=== PATIENT | male | born 1945 | race Caucasian/White ===

== ENCOUNTER 2021-06-14 18:00 | Inpatient (IN) | payer MEDICARE ==
--- NOTE | 2021-06-14 18:37 | ED ---
General Adult HPI - General Chief complaint: Chest Pain Stated complaint: Chest Pain, transfer from [facility] Time Seen by Provider: 06/14/21 18:26 Source: patient, RN/MD, EMS, old records reviewed Mode of arrival: EMS Limitations: no limitations - History of Present Illness Initial comments: Patient was transferred to our ED from the [facility] ED for further evaluation of his chest pain. Per [facility] ED physician, the patient presented there after developing exertional chest pain. Per ED physician, the patient's EKG demonstrated no ST abnormality and the patient's initial troponin was negative, but given the patient's cardiac history of having 5 stents placed in the past, and given the patient's ongoing chest pain, the patient was started on a heparin IV drip, nitroglycerin IV drip and transferred to our ED. Patient reports that his central chest pain began at about 11 AM this morning while doing some yard work. Patient states that his pain has currently improved. Patient states that he took 3 nitroglycerin tabs at home, as well as aspirin, prior to going to the [facility] ED earlier today. Patient denies trauma or injury, fever or chills, headache, focal numbness/weakness/neuro deficit, neck/arm/jaw/back pain, pleuritic pain, cough or cold symptoms, dyspnea, palpitations, dizziness, nausea/vomiting/diaphoresis, abdominal pain, dysuria or urinary symptoms, leg or calf swelling or pain, or any other symptoms or complaints. - Related Data Home Medications Medication Instructions Recorded Confirmed Aspirin EC [Ecotrin Low Dose] 81 mg PO DAILY 06/14/21 06/14/21 Baclofen 10 mg PO Q6H PRN 06/14/21 06/14/21 Cholecalciferol [Vitamin D3 (25 25 mcg PO DAILY 06/14/21 06/14/21 Mcg = 1000 Iu)] Diltiazem HCl [Diltiazem HCl 24Hr 180 mg PO DAILY 06/14/21 06/14/21 ER] Furosemide [Lasix] 40 mg PO DAILY 06/14/21 06/14/21 HYDROcodone/APAP 7.5-325MG [[place] 1 tab PO Q6H PRN 06/14/21 06/14/21 7.5-325] Magnesium 200 mg PO BID 06/14/21 06/14/21 Multivitamins, Thera [Multivitamin 1 tab PO DAILY 06/14/21 06/14/21 (formulary)] Nitroglycerin Sl Tabs [Nitrostat] 0.4 mg SL Q5M PRN 06/14/21 06/14/21 Rosuvastatin Calcium [Crestor] 40 mg PO DAILY 06/14/21 06/14/21 Sotalol [Betapace] 120 mg PO BID 06/14/21 06/14/21 calcitrioL [Calcitriol] 0.25 mcg PO Q7D 06/14/21 06/14/21 carBAMazepine [TEGretol] 200 mg PO BID 06/14/21 06/14/21 hydroCHLOROthiazide [Hydrodiuril] 25 mg PO DAILY PRN 06/14/21 06/14/21 levETIRAcetam [Keppra] 1,500 mg PO BID 06/14/21 06/14/21 Allergies Allergy/AdvReac Type Severity Reaction Status Date / Time cyclobenzaprine Allergy Unknown Verified 06/14/21 19:34 [From Flexeril] Fish Containing Products Allergy Swelling Verified 06/14/21 19:34 [Fish] hydralazine Allergy Unknown Verified 06/14/21 19:34 niacin Allergy Unknown Verified 06/14/21 19:34 shellfish derived [Shellfish] Allergy Swelling Verified 06/14/21 19:34 simvastatin Allergy Unknown Verified 06/14/21 19:34 Review of Systems ROS Statement: Those systems with pertinent positive or pertinent negative responses have been documented in the HPI. ROS Other: All systems not noted in ROS Statement are negative. Past Medical History Past Medical History: Cancer, Hyperlipidemia, Hypertension, Myocardial Infarction ([place]) Additional Past Medical History / Comment(s): kidney ca History of Any Multi-Drug Resistant Organisms: None Reported Past Surgical History: Back Surgery, Cholecystectomy, Coronary Bypass/CABG, Heart Catheterization With Stent, Orthopedic Surgery Additional Past Surgical History / Comment(s): rt kidney removl Past Psychological History: No Psychological Hx Reported Smoking Status: Never smoker Past Alcohol Use History: None Reported Past Drug Use History: None Reported General Exam Limitations: no limitations General appearance: alert, in no apparent distress Head exam: Present: atraumatic, normocephalic Eye exam: Present: normal appearance, EOMI ENT exam: Present: mucous membranes moist Neck exam: Present: other (Trachea is in midline) Respiratory exam: Present: normal lung sounds bilaterally. Absent: respiratory distress, wheezes, rales, rhonchi, stridor, chest wall tenderness Cardiovascular Exam: Present: regular rate, normal rhythm, normal heart sounds, other (Normal radial pulses bilaterally) GI/Abdominal exam: Present: soft. Absent: distended, tenderness, guarding Extremities exam: Present: other (Negative Homans sign bilaterally). Absent: tenderness, pedal edema, calf tenderness Neurological exam: Present: alert, oriented X3. Absent: motor sensory deficit Psychiatric exam: Present: normal affect, normal mood Skin exam: Present: warm, dry, intact, normal color Course Vital Signs 06/14/21 18:15 Temperature 97.6 F Pulse Rate 60 Respiratory 18 Rate Blood Pressure 141/77 O2 Sat by Pulse 99 Oximetry - Reevaluation(s) Reevaluation #1: 06/14/21 18:58 Case, H&P, [facility] test results and treatment, and pending ED workup here were discussed with Dr. Blair. He accepts hospital admission. He requests that I order a d-dimer. He agrees with cardiology consultation. He has no further recommendations at this time. 06/14/21 20:26 Dr. Blair is aware of the patient's elevated d-dimer. He recommends keeping the patient on his heparin IV drip, and he states that he will order a VQ scan on the patient in the morning given the patient's elevated creatinine. He has no further recommendations at this time. 06/14/21 21:07 Patient's troponin has now resulted and is now elevated at 0.086. Patient states that his chest pain has improved. Will continue the patient on heparin I V drip. EKG Findings - EKG Comments: EKG Findings:: Atrial paced rhythm, incomplete right bundle branch block, ventricular rate of 63 bpm, NV interval of 248 ms, QRS duration of 112 ms, QTc interval of 550 ms, no ST elevation, nonspecific ST abnormality Medical Decision Making - Medical Decision Making Patient's outside hospital ([facility]) notes and test results were reviewed myself. Patient's chest x-ray report shows no active cardiac pulmonary disease. Patient's EKG shows no ST or T-wave abnormality. Patient's Covid and influenza studies are negative. Patient's labs are pertinent for a hemoglobin of 10.8, hematocrit of 33.9, potassium of 3.2, BUN of 79, a serum creatinine of 2.9, and a negative troponin (0.021). Patient reportedly has chronic kidney disease. Given the patient's cardiac history and ongoing chest pain, will admit the patient to the hospital for serial cardiac enzymes, cardiac monitoring and cardiology evaluation. Will continue the patient's IV heparin drip. Dr. Blair has accepted hospital admission. - Lab Data Result diagrams: 06/14/21 19:20 Disposition Clinical Impression: Chest pain, Elevated troponin Disposition: ADMITTED IP TO THIS HOSP Condition: Stable Is patient prescribed a controlled substance at d/c from ED?: No Time of Disposition: 19:01
[2021-06-14] MEDS ORDERED: HEPARIN SODIUM 1,000 UN/ML (10ML VL) IV ONE (19:02)
[2021-06-14 19:31] LABS: Basophils # (A) 0.1 k/uL (0-0.2); Basophils % (A) 1 %; Eosinophils # (A) 0.3 k/uL (0-0.7); Eosinophils % (A) 4 %; HCT 33.7 % (39.0-53.0); HGB 11.3 gm/dL (13.0-17.5); Lymphocytes # (A) 1.8 k/uL (1.0-4.8); Lymphocytes % (A) 22 %; MCH 32.7 pg (25.0-35.0); MCHC 33.6 g/dL (31.0-37.0); MCV 97.3 fL (80.0-100.0); Mean Platelet Volume 7.8; Monocytes # (A) 0.5 k/uL (0-1.0); Monocytes % (A) 6 %; Neutrophils # (A) 5.4 k/uL (1.3-7.7); Neutrophils % (A) 64 %; Platelet Count 205 k/uL (150-450); RBC 3.46 m/uL (4.30-5.90); RDW 14.3 % (11.5-15.5); WBC 8.4 k/uL (3.8-10.6)
[2021-06-14] MEDS: HEPARIN SOD,PORK IN 0.45% NACL 25,000 UNIT in 0.45% NACL 1 250ML.BAG IV SCH (19:32)
[2021-06-14] MEDS ORDERED: MAG HYDROX/AL HYDROX/SIMETH 30 ML, HYOSCYAMINE ELIXIR 10 ML, LIDOCAINE VISCOUS 2% 10 ML PO STA ×3 (19:37)
[2021-06-14 19:51] LABS: INR 1.1 (<1.2); Prothrombin Time 11.2 sec (9.0-12.0)
[2021-06-14 19:56] LABS: Partial Thromboplastin Time 70.3 sec (22.0-30.0)
[2021-06-15 09:05] LABS: INR 1.02 (0.90-1.11); Prothrombin Time 11.1 sec (9.9-11.9)
[2021-06-15 09:07] LABS: Basophils # (A) 0.03 X 10*3/uL (0.00-0.10); Basophils % (A) 0.4 %; Eosinophils # (A) 0.26 X 10*3/uL (0.04-0.35); Eosinophils % (A) 3.8 %; HCT 33.2 % (39.6-50.0); HGB 10.4 g/dL (13.0-17.0); Lymphocytes # (A) 1.85 X 10*3/uL (0.90-5.00); Lymphocytes % (A) 27.2 %; MCH 30.9 pg (27.0-32.0); MCHC 31.3 g/dL (32.0-37.0); MCV 98.5 fL (80.0-97.0); Monocytes # (A) 0.72 X 10*3/uL (0.20-1.00); Monocytes % (A) 10.6 %; Neutrophils # (A) 3.92 X 10*3/uL (1.80-7.70); Neutrophils % (A) 57.6 %; Platelet Count 181 X 10*3/uL (140-440); RBC 3.37 X 10*6/uL (4.40-5.60); RDW 13.9 % (11.5-14.5); WBC 6.81 X 10*3/uL (4.50-10.00)
[2021-06-15 10:16] LABS: African American GFR (CKD) 22.5 (60.0-200.0); Albumin 4.3 g/dL (3.80-4.90); Albumin/Globulin Ratio 2.39 (1.60-3.17); Anion Gap 8.2 mmol/L (4.00-12.00); BUN/Creat Ratio 24.67 Ratio (12.00-20.00); Calcium 8.3 mg/dL (8.7-10.3); Carbon Dioxide 29.8 mmol/L (21.6-31.8); Globulin 1.8 g/dL (1.6-3.3); Non-African American GFR(CKD) 19.4 (60.0-200.0); Potassium 3.6 mmol/L (3.5-5.5); Total Bilirubin 0.2 mg/dL (0.3-1.2); Total Protein 6.1 g/dL (6.2-8.2)
--- NOTE | 2021-06-15 10:34 | P.CRDCN ---
History of Present Illness Consult date: 06/15/21 Chief complaint: Chest pain History of present illness: This is a 76-year-old gentleman who sees a solutions consultant out of this area with a past medical history significant for coronary artery disease and prior coronary artery bypass grafting as well as stenting with unknown details, we are in process of getting the previous medical records including the last heart catheterization as well as history of cardiomyopathy and also hypertension and dyslipidemia and status post what it seems to be an AICD. The patient was transferred from [facility] emergency department to the emergency department here for further evaluation of chest discomfort. The patient somewhat is a poor historian. He stated that he presented complaining of chest pressure and epigastric discomfort mainly without any associated symptoms of sweating or shortness of breath or dizziness or lightheadedness or any feeling of heart racing or fluttering or presyncope or syncope. The EKG showed sinus rhythm with significant/ischemic ST and T wave abnormalities. Her troponin came in to be abnormal and consistent with acute coronary syndrome. The patient currently is on heparin and he stated that his pain has improved significantly but he continues to have about 1/10 chest discomfort at this point. Unfortunately his creatinine is abnormal and came in to be about 3 was GFR of 20 only. He does have an underlying chronic kidney disease. We don't have any prior echocardiogram on the patient. We are in process of getting a copy of the last heart catheterization from [facility]. Beside that and meanwhile I'm going to continue hydrating the patient and monitor the kidney function and electrolytes and consider coronary angiogram in the next 24-48 hours if the creatinine is improved and she continues to have symptoms of chest pain or chest discomfort. I will also obtain an echocardiogram was Doppler to establish LV function. We'll continue follow-up with the patient. Past Medical History Past Medical History: Cancer, Hyperlipidemia, Hypertension, Myocardial Infarction ([place]) Additional Past Medical History / Comment(s): kidney ca History of Any Multi-Drug Resistant Organisms: None Reported Past Surgical History: Back Surgery, Cholecystectomy, Coronary Bypass/CABG, Heart Catheterization With Stent, Orthopedic Surgery Additional Past Surgical History / Comment(s): rt kidney removl Past Psychological History: No Psychological Hx Reported Smoking Status: Never smoker Past Alcohol Use History: None Reported Past Drug Use History: None Reported Medications and Allergies Home Medications Medication Instructions Recorded Confirmed Type Aspirin EC [Ecotrin Low Dose] 81 mg PO DAILY 06/14/21 06/14/21 History Baclofen 10 mg PO Q6H PRN 06/14/21 06/14/21 History Cholecalciferol [Vitamin D3 (25 25 mcg PO DAILY 06/14/21 06/14/21 History Mcg = 1000 Iu)] Diltiazem HCl [Diltiazem HCl 24Hr 180 mg PO DAILY 06/14/21 06/14/21 History ER] Furosemide [Lasix] 40 mg PO DAILY 06/14/21 06/14/21 History HYDROcodone/APAP 7.5-325MG [[place] 1 tab PO Q6H PRN 06/14/21 06/14/21 History 7.5-325] Magnesium 200 mg PO BID 06/14/21 06/14/21 History Multivitamins, Thera [Multivitamin 1 tab PO DAILY 06/14/21 06/14/21 History (formulary)] Nitroglycerin Sl Tabs [Nitrostat] 0.4 mg SL Q5M PRN 06/14/21 06/14/21 History Rosuvastatin Calcium [Crestor] 40 mg PO DAILY 06/14/21 06/14/21 History Sotalol [Betapace] 120 mg PO BID 06/14/21 06/14/21 History calcitrioL [Calcitriol] 0.25 mcg PO Q7D 06/14/21 06/14/21 History carBAMazepine [TEGretol] 200 mg PO BID 06/14/21 06/14/21 History hydroCHLOROthiazide [Hydrodiuril] 25 mg PO DAILY PRN 06/14/21 06/14/21 History levETIRAcetam [Keppra] 1,500 mg PO BID 06/14/21 06/14/21 History Allergies Allergy/AdvReac Type Severity Reaction Status Date / Time cyclobenzaprine Allergy Unknown Verified 06/14/21 19:34 [From Flexeril] Fish Containing Products Allergy Swelling Verified 06/14/21 19:34 [Fish] hydralazine Allergy Unknown Verified 06/14/21 19:34 niacin Allergy Unknown Verified 06/14/21 19:34 shellfish derived [Shellfish] Allergy Swelling Verified 06/14/21 19:34 simvastatin Allergy Unknown Verified 06/14/21 19:34 Physical Exam Vitals: Vital Signs Temp Pulse Resp BP Pulse Ox 06/15/21 10:02 97.8 F 60 16 126/55 100 06/15/21 08:03 97.8 F 60 16 126/55 100 06/15/21 04:08 60 16 127/65 99 06/15/21 00:47 98.5 F 62 20 137/55 99 06/14/21 22:20 66 18 109/67 98 06/14/21 18:15 97.6 F 60 18 141/77 99 Intake and Output 06/14/21 06/15/21 06/15/21 22:59 06:59 14:59 Intake Total 5 49.467 Balance 5 49.467 Intake: Intake, IV Titration 5 49.467 Amount Heparin Sod,Pork in 0.45% 5 49.467 NaCl 25,000 unit In 0.45 % NaCl 1 250ml.bag @ 10. 03 UNITS/KG/HR 10 mls/hr IV .Q24H [facility] Rx#: [id number] Other: Weight 99.7 kg - Constitutional General appearance: no acute distress - Respiratory Respiratory: bilateral: CTA - Cardiovascular Rhythm: regular Heart sounds: normal: S1, S2 Abnormal Heart Sounds: systolic murmur Results 06/15/21 05:15 06/15/21 05:15 Cardiac Enzymes 06/14/21 06/14/21 06/15/21 Range/Units 19:18 22:34 01:33 AST (14-35) U/L Troponin I 0.086 H* 3.800 H* 14.600 H* (0.000-0.034) ng/mL 06/15/21 Range/Units 05:15 AST 90 H (14-35) U/L Troponin I (0.000-0.034) ng/mL Coagulation 06/14/21 06/15/21 06/15/21 Range/Units 19:10 01:33 05:15 PT 11.2 11.1 (9.0-12.0) sec APTT 70.3 H 92.9 H (22.0-30.0) sec 06/15/21 Range/Units 09:28 PT (9.0-12.0) sec APTT 30.4 H (22.0-30.0) sec CBC 06/14/21 06/15/21 Range/Units 19:20 05:15 WBC 8.4 6.81 (3.8-10.6) k/uL RBC 3.46 L 3.37 L (4.30-5.90) m/uL Hgb 11.3 L 10.4 L (13.0-17.5) gm/dL Hct 33.7 L 33.2 L (39.0-53.0) % Plt Count 205 181 (150-450) k/uL Comprehensive Metabolic Panel 06/15/21 Range/Units 05:15 Sodium 142 (135-145) mmol/L Potassium 3.6 (3.5-5.5) mmol/L Chloride 104 (96-109) mmol/L Carbon Dioxide 29.8 (21.6-31.8) mmol/L BUN 74.0 H (9.0-27.0) mg/dL Creatinine 3.0 H (0.6-1.5) mg/dL Glucose 75 (70-110) mg/dL Calcium 8.3 L (8.7-10.3) mg/dL AST 90 H (14-35) U/L ALT 29 (10-49) U/L Alkaline Phosphatase 91 (41-126) U/L Total Protein 6.1 L (6.2-8.2) g/dL Albumin 4.30 (3.80-4.90) g/dL Current Medications Generic Name Dose Route Start Last Admin Trade Name Freq PRN Reason Stop Dose Admin Heparin Sodium (Porcine) 0 unit 06/14/21 19:02 Heparin Sodium 1,000 Un/Ml (10ml Vl) IV PER PROTOCOL PRN Low PTT Protocol Heparin Sodium/Sodium Chloride 250 mls @ 10 mls/hr 06/14/21 19:15 06/15/21 03:29 25,000 unit/ Sodium Chloride IV 5.02 units/kg/hr .Q24H [facility]ON[facility] 5.005 mls/hr Titration Protocol 10.03 UNITS/KG/HR Intake and Output 06/14/21 06/15/21 06/15/21 22:59 06:59 14:59 Intake Total 5 49.467 Balance 5 49.467 Intake: Intake, IV Titration 5 49.467 Amount Heparin Sod,Pork in 0.45% 5 49.467 NaCl 25,000 unit In 0.45 % NaCl 1 250ml.bag @ 10. 03 UNITS/KG/HR 10 mls/hr IV .Q24H [facility] Rx#: [id number] Other: Weight 99.7 kg 06/15/21 05:15 06/15/21 05:15 Assessment and Plan Assessment: Assessment #1 acute coronary syndrome #2 acute on chronic kidney disease #3 known severe CAD with prior revascularization surgically and percutaneous the with unknown details at this point #4 history of cardiomyopathy #5 multiple comorbid conditions Plan #1 consider a conservative approach at this point in the absence of chest pain and in view of the acute renal failure #2 continue heparin IV for a total of 48 hours #3 consider dual antiplatelet therapy with aspirin as well as clopidogrel #4 high intensity statin #5 obtain an echocardiogram was Doppler #6 obtain a copy of the last heart catheterization We'll continue following up with the patient
[2021-06-15] MEDS: HEPARIN SODIUM 1,000 UN/ML (10ML VL) IV PRN ×2 (11:21→18:15)
[2021-06-15] MEDS ORDERED: BACLOFEN 10 MG TAB PO PRN (11:33)
[2021-06-15] MEDS ORDERED: HYDROcodone/APAP 7.5-325MG 1 EACH TAB PO PRN (11:33)
[2021-06-15] MEDS ORDERED: hydroCHLOROthiazide 25 MG TAB PO PRN (11:33)
--- NOTE | 2021-06-15 14:27 | NM ---
EXAMINATION TYPE: NM pul vent and perfuse DATE OF EXAM: 06/15/2021 COMPARISON: Chest x-ray 06/14/2021 HISTORY: Elevated d-dimer, chest pain, difficulty breathing and cough TECHNIQUE: Utilizing inhalation of 68.1 mCi Tc 99m DTPA aerosol and intravenous injection of 5.2 mCi of Tc 99m MAA, ventilation and perfusion images are acquired post injection in multiple projections. FINDINGS: Near normal radiotracer distribution is noted in the lungs. There is no evidence of mismatched defect s. IMPRESSION: Low probability for pulmonary embolus
[2021-06-15] MEDS: CHOLECALCIFEROL 25 MCG (1000 IU) TABLET PO SCH (16:21)
[2021-06-15] MEDS: carBAMazepine 200 MG TAB PO SCH ×2 (16:21→20:02)
[2021-06-15] MEDS: ASPIRIN 81 MG PO SCH (16:21)
[2021-06-15] MEDS: DILTIAZEM CD 180 MG CAP.ER.24H PO SCH (16:21)
[2021-06-15] MEDS: FUROSEMIDE 40 MG TAB PO SCH (16:22)
[2021-06-15] MEDS: MULTIVITAMINS, THERA 1 EACH TAB PO SCH (16:40)
[2021-06-15] MEDS: MAGNESIUM OXIDE 400 MG TAB PO SCH ×2 (16:43→20:03)
--- NOTE | 2021-06-15 19:41 | P.HPIM ---
History of Present Illness H&P Date: 06/15/21 Kelton Medley, is a 76-year-old male who presented to [facility] emergency room with a chief complaint of chest pain and shortness of breath, he was evaluated at [facility], his EKG and cardiac enzymes were within normal limits, however due to his extensive history of coronary artery disease including history of angioplasty and 5 stent placement in the past, he was started on IV heparin and was transferred to [facility] for further evaluation and treatment. Patient stated that he was working in his yard when he started having pain in the midsternal area he was also having shortness of breath he to 3 sublingual nitroglycerin at home and aspirin without complete resolution of his chest pain and he decided to go to emergency room. He was evaluated at [facility] his vital examination on presentation revealed a temperature of 97.6 pulse 60 respiration 18 blood pressure 141/77 pulse ox 99% on room air Laboratory data on presentation revealed a white blood count of 8.4 hemoglobin 11.3 platelet count 205 INR 1.1 d-dimer 8.61 First troponin level was 0.086 however subsequence troponin level was up to 3.80 BUN was elevated at 74 and creatinine elevated at 3.0 Patient was admitted to telemetry floor cardiology consultation was requested he was kept on IV heparin Patient has a known history of coronary artery disease with previous history of stent placement 5 in the past he also has a known history of cardiomyopathy and history of chronic kidney disease Past Medical History Past Medical History: Cancer, Hyperlipidemia, Hypertension, Myocardial Infarction ([place]) Additional Past Medical History / Comment(s): kidney ca History of Any Multi-Drug Resistant Organisms: None Reported Past Surgical History: Back Surgery, Cholecystectomy, Coronary Bypass/CABG, Heart Catheterization With Stent, Orthopedic Surgery Additional Past Surgical History / Comment(s): rt kidney removl Past Psychological History: No Psychological Hx Reported Smoking Status: Never smoker Past Alcohol Use History: None Reported Past Drug Use History: None Reported Medications and Allergies Home Medications Medication Instructions Recorded Confirmed Type Aspirin EC [Ecotrin Low Dose] 81 mg PO DAILY 06/14/21 06/14/21 History Baclofen 10 mg PO Q6H PRN 06/14/21 06/14/21 History Cholecalciferol [Vitamin D3 (25 25 mcg PO DAILY 06/14/21 06/14/21 History Mcg = 1000 Iu)] Diltiazem HCl [Diltiazem HCl 24Hr 180 mg PO DAILY 06/14/21 06/14/21 History ER] Furosemide [Lasix] 40 mg PO DAILY 06/14/21 06/14/21 History HYDROcodone/APAP 7.5-325MG [[place] 1 tab PO Q6H PRN 06/14/21 06/14/21 History 7.5-325] Magnesium 200 mg PO BID 06/14/21 06/14/21 History Multivitamins, Thera [Multivitamin 1 tab PO DAILY 06/14/21 06/14/21 History (formulary)] Nitroglycerin Sl Tabs [Nitrostat] 0.4 mg SL Q5M PRN 06/14/21 06/14/21 History Rosuvastatin Calcium [Crestor] 40 mg PO DAILY 06/14/21 06/14/21 History Sotalol [Betapace] 120 mg PO BID 06/14/21 06/14/21 History calcitrioL [Calcitriol] 0.25 mcg PO Q7D 06/14/21 06/14/21 History carBAMazepine [TEGretol] 200 mg PO BID 06/14/21 06/14/21 History hydroCHLOROthiazide [Hydrodiuril] 25 mg PO DAILY PRN 06/14/21 06/14/21 History levETIRAcetam [Keppra] 1,500 mg PO BID 06/14/21 06/14/21 History Allergies Allergy/AdvReac Type Severity Reaction Status Date / Time cyclobenzaprine Allergy Unknown Verified 06/14/21 19:34 [From Flexeril] Fish Containing Products Allergy Swelling Verified 06/14/21 19:34 [Fish] hydralazine Allergy Unknown Verified 06/14/21 19:34 niacin Allergy Unknown Verified 06/14/21 19:34 shellfish derived [Shellfish] Allergy Swelling Verified 06/14/21 19:34 simvastatin Allergy Unknown Verified 06/14/21 19:34 Physical Exam Vitals: Vital Signs Temp Pulse Resp BP Pulse Ox 06/15/21 10:02 97.8 F 60 16 126/55 100 06/15/21 08:03 97.8 F 60 16 126/55 100 06/15/21 04:08 60 16 127/65 99 06/15/21 00:47 98.5 F 62 20 137/55 99 06/14/21 22:20 66 18 109/67 98 06/14/21 18:15 97.6 F 60 18 141/77 99 Intake and Output 06/14/21 06/15/21 06/15/21 22:59 06:59 14:59 Intake Total 5 49.467 Balance 5 49.467 Intake: Intake, IV Titration 5 49.467 Amount Heparin Sod,Pork in 0.45% 5 49.467 NaCl 25,000 unit In 0.45 % NaCl 1 250ml.bag @ 10. 03 UNITS/KG/HR 10 mls/hr IV .Q24H [facility] Rx#: [id number] Other: Weight 99.7 kg In general patient is alert and oriented x3 in no distress HEENT head normocephalic and atraumatic Neck is supple no JVD no goiter no lymphadenopathy no carotid bruit Chest examination is clear to auscultation no crackles no wheezing Cardiac exam reveals regular heart sounds S1 and S2 no gallops no murmurs Abdomen is soft nontender no organomegaly with normal bowel sounds Extremity exam reveals no edema no cyanosis or clubbing Neurological examination reveals no gross focal deficits Results CBC & Chem 7: 06/15/21 05:15 06/15/21 05:15 Labs: Abnormal Lab Results - Last 24 Hours (Table) 06/14/21 06/14/21 06/14/21 Range/Units 19:10 19:18 19:20 RBC 3.46 L (4.30-5.90) m/uL Hgb 11.3 L (13.0-17.5) gm/dL Hct 33.7 L (39.0-53.0) % MCV (80.0-97.0) fL MCHC (32.0-37.0) g/dL APTT 70.3 H (22.0-30.0) sec D-Dimer 8.61 H (<0.60) mg/L FEU Troponin I 0.086 H* (0.000-0.034) ng/mL 06/14/21 06/15/21 06/15/21 Range/Units 22:34 01:33 01:33 RBC (4.30-5.90) m/uL Hgb (13.0-17.5) gm/dL Hct (39.0-53.0) % MCV (80.0-97.0) fL MCHC (32.0-37.0) g/dL APTT 92.9 H (22.0-30.0) sec D-Dimer (<0.60) mg/L FEU Troponin I 3.800 H* 14.600 H* (0.000-0.034) ng/mL 06/15/21 06/15/21 Range/Units 05:15 09:28 RBC 3.37 L (4.30-5.90) m/uL Hgb 10.4 L (13.0-17.5) gm/dL Hct 33.2 L (39.0-53.0) % MCV 98.5 H (80.0-97.0) fL MCHC 31.3 L (32.0-37.0) g/dL APTT 30.4 H (22.0-30.0) sec D-Dimer (<0.60) mg/L FEU Troponin I (0.000-0.034) ng/mL Assessment and Plan Plan: 1. Acute non-ST elevation myocardial infarction 2. Underlying known history of severe coronary artery disease was previous history of coronary artery bypass graft surgery and history of multiple stent placements in the past 3. Underlying history of chronic kidney disease, will consult nephrology, continue IV hydration at this time 4. Underlying history of seizure disorder maintained on Tegretol and Keppra continue 5. Underlying history of hypertension 6. Underlying history of hyperlipidemia 7. Underlying history of cardiomyopathy 8. Underlying history of cardiac Arrhythmia patient and able to give details he is maintained on sotalol and has a history of pacemaker/defibrillator implant At this time medication were reviewed and reordered Continue IV heparin and IV hydration Cardiology are following Will consult nephrology Patient had chronic kidney disease and previous history of kidney cancer and right nephrectomy Will follow closely
[2021-06-15] MEDS: ATORVASTATIN 40 MG TAB PO SCH (20:02)
[2021-06-15] MEDS: SOTALOL 120 MG TAB PO SCH (20:02)
[2021-06-15] MEDS: HEPARIN SOD,PORK IN 0.45% NACL 25,000 UNIT in 0.45% NACL 1 250ML.BAG IV SCH (20:03)
[2021-06-15] MEDS ORDERED: SOTALOL 120 MG TAB PO SCH (21:00)
--- NOTE | 2021-06-15 22:09 | US ---
EXAMINATION TYPE: US venous doppler duplex LE BI DATE OF EXAM: 06/15/2021 9:06 PM COMPARISON: NONE CLINICAL HISTORY: elevated d-dimer. SIDE PERFORMED: Bilateral TECHNIQUE: The lower extremity deep venous system is examined utilizing real time linear array sonog shannan with graded compression, doppler sonography and color-flow sonography. VESSELS IMAGED: Common Femoral Vein Deep Femoral Vein Greater Saphenous Vein * Femoral Vein Popliteal Vein Small Saphenous Vein * Proximal Calf Veins (* superficial vessels) Right Leg: Negative for DVT Left Leg: Negative for DVT IMPRESSION: No evidence of bilateral lower extremity DVT.
[2021-06-15 23:21] LABS: Appearance,Urine Clear (Clear); Bilirubin,Urine Negative (Negative); Blood,Urine Negative (Negative); Color,Urine Light Yellow; Glucose,Urine (UA) Negative (Negative); Ketones,Urine Negative (Negative); Leukocyte Esterase,Urine Negative (Negative); Mucus,Urine Rare /hpf; Nitrite,Urine Negative (Negative); PH, Urine 5.5 (5.0-8.0); Protein,Urine 1+ (Negative); RBC,Urine 1 /hpf (0-5); Specific Gravity,Urine 1.014 (1.001-1.035); Urobilinogen,Urine <2.0 mg/dL (<2.0); WBC,Urine <1 /hpf (0-5)
[2021-06-16 08:28] LABS: Basophils % (A) 0 %; Eosinophils # (A) 0.2 k/uL (0-0.7); Eosinophils % (A) 3 %; HCT 34.5 % (39.0-53.0); HGB 10.9 gm/dL (13.0-17.5); Lymphocytes # (A) 1.9 k/uL (1.0-4.8); Lymphocytes % (A) 22 %; MCH 32.1 pg (25.0-35.0); MCHC 31.7 g/dL (31.0-37.0); MCV 101.2 fL (80.0-100.0); Macrocytosis Slight; Mean Platelet Volume 7.7; Monocytes # (A) 0.5 k/uL (0-1.0); Monocytes % (A) 6 %; Neutrophils # (A) 5.6 k/uL (1.3-7.7); Neutrophils % (A) 66 %; Platelet Count 188 k/uL (150-450); RBC 3.41 m/uL (4.30-5.90); RDW 13.8 % (11.5-15.5); WBC 8.5 k/uL (3.8-10.6)
--- NOTE | 2021-06-16 08:32 | P.PN ---
Subjective Progress Note Date: 06/16/21 Principal diagnosis: Acute coronary syndrome The patient is a pleasant 76-year-old gentleman with coronary artery disease and prior revascularization as well as multiple comorbid conditions including hypertension and dyslipidemia was admitted to the hospital with chest discomfort and ruled in for acute coronary syndrome. Also the d-dimer came in to be elevated. Subsequently the patient underwent a VQ scan and that came in to be unremarkable. The creatinine was elevated. The patient was seen this morning. He is chest pain-free. Unfortunately without have the blood work back for today and I ordered kidney function urgent. Also the echocardiogram still pending. He denies any chest pain or chest discomfort and he stated that he is feeling much better compared to yesterday. He continues to be on dual antiplatelet therapy along with a statin along with beta mariella. He is also on heparin IV. Objective - Vital Signs Vital signs: Vital Signs Temp 97.6 F 06/16/21 04:00 Pulse 65 06/16/21 04:00 Resp 16 06/16/21 04:00 BP 153/79 06/16/21 04:00 Pulse Ox 95 06/16/21 04:00 Intake & Output 06/15/21 06/16/21 06/16/21 18:59 06:59 18:59 Intake Total 214.112 849.597 200 Output Total 700 Balance 214.112 149.597 200 Weight 94.5 kg 94 kg Intake: Intake, IV Titration 94.112 69.597 Amount Heparin Sod,Pork in 0.45% 94.112 69.597 NaCl 25,000 unit In 0.45 % NaCl 1 250ml.bag @ 10. 03 UNITS/KG/HR 10 mls/hr IV .Q24H [facility] Rx#: [id number] Oral 120 780 200 Output: Urine 700 Other: Voiding Method Toilet Toilet Urinal Urinal # Voids 2 - Constitutional General appearance: Present: no acute distress - Respiratory Respiratory: bilateral: CTA - Cardiovascular Rhythm: regular Heart sounds: normal: S1, S2 Abnormal Heart Sounds: Present: systolic murmur - Labs CBC & Chem 7: 06/16/21 07:49 06/15/21 05:15 Labs: Abnormal Lab Results - Last 24 Hours (Table) 06/15/21 06/15/21 06/15/21 Range/Units 05:15 05:15 09:28 RBC 3.37 L (4.40-5.60) X 10*6/uL Hgb 10.4 L (13.0-17.0) g/dL Hct 33.2 L (39.6-50.0) % MCV 98.5 H (80.0-97.0) fL MCHC 31.3 L (32.0-37.0) g/dL APTT 30.4 H (22.0-30.0) sec BUN 74.0 H (9.0-27.0) mg/dL Creatinine 3.0 H (0.6-1.5) mg/dL Est GFR (CKD-EPI)AfAm 22.5 L (60.0-200.0) Est GFR (CKD-EPI)NonAf 19.4 L (60.0-200.0) BUN/Creatinine Ratio 24.67 H (12.00-20.00) Ratio Calcium 8.3 L (8.7-10.3) mg/dL Total Bilirubin 0.2 L (0.3-1.2) mg/dL AST 90 H (14-35) U/L Total Protein 6.1 L (6.2-8.2) g/dL Urine Protein (Negative) Urine Mucus (None) /hpf 06/15/21 06/15/21 06/16/21 Range/Units 17:34 21:10 00:25 RBC (4.40-5.60) X 10*6/uL Hgb (13.0-17.0) g/dL Hct (39.6-50.0) % MCV (80.0-97.0) fL MCHC (32.0-37.0) g/dL APTT 37.5 H 67.4 H (22.0-30.0) sec BUN (9.0-27.0) mg/dL Creatinine (0.6-1.5) mg/dL Est GFR (CKD-EPI)AfAm (60.0-200.0) Est GFR (CKD-EPI)NonAf (60.0-200.0) BUN/Creatinine Ratio (12.00-20.00) Ratio Calcium (8.7-10.3) mg/dL Total Bilirubin (0.3-1.2) mg/dL AST (14-35) U/L Total Protein (6.2-8.2) g/dL Urine Protein 1+ H (Negative) Urine Mucus Rare H (None) /hpf 06/16/21 Range/Units 07:49 RBC 3.41 L (4.40-5.60) X 10*6/uL Hgb 10.9 L (13.0-17.0) g/dL Hct 34.5 L (39.6-50.0) % MCV 101.2 H (80.0-97.0) fL MCHC (32.0-37.0) g/dL APTT (22.0-30.0) sec BUN (9.0-27.0) mg/dL Creatinine (0.6-1.5) mg/dL Est GFR (CKD-EPI)AfAm (60.0-200.0) Est GFR (CKD-EPI)NonAf (60.0-200.0) BUN/Creatinine Ratio (12.00-20.00) Ratio Calcium (8.7-10.3) mg/dL Total Bilirubin (0.3-1.2) mg/dL AST (14-35) U/L Total Protein (6.2-8.2) g/dL Urine Protein (Negative) Urine Mucus (None) /hpf Assessment and Plan Assessment: Assessment #1 acute coronary syndrome #2 acute on chronic kidney disease #3 known severe CAD with prior revascularization surgically and percutaneous the with unknown details at this point #4 history of cardiomyopathy #5 multiple comorbid conditions Plan #1 continue IV heparin for additional 24 hours #2 weight for the result of the blood work today #3 follow-up on the echocardiogram #4 PE was ruled out with low probability VQ scan #5 further recommendation to follow
[2021-06-16] MEDS: CLOPIDOGREL 75 MG TAB PO SCH (08:41)
[2021-06-16] MEDS: DILTIAZEM CD 180 MG CAP.ER.24H PO SCH (08:41)
[2021-06-16] MEDS: carBAMazepine 200 MG TAB PO SCH ×2 (08:41→20:40)
[2021-06-16] MEDS: MAGNESIUM OXIDE 400 MG TAB PO SCH ×2 (08:41→20:40)
[2021-06-16] MEDS: FUROSEMIDE 40 MG TAB PO SCH (08:41)
[2021-06-16] MEDS: CHOLECALCIFEROL 25 MCG (1000 IU) TABLET PO SCH (08:41)
[2021-06-16] MEDS: MULTIVITAMINS, THERA 1 EACH TAB PO SCH (08:41)
[2021-06-16] MEDS: SOTALOL 120 MG TAB PO SCH ×2 (08:42→22:35)
[2021-06-16] MEDS: ASPIRIN 81 MG PO SCH (08:42)
[2021-06-16 08:46] LABS: Albumin 3.9 g/dL (3.5-5.0); Calcium 8.7 mg/dL (8.4-10.2); Potassium 3.7 mmol/L (3.5-5.1); Total Bilirubin 0.4 mg/dL (0.2-1.3); Total Protein 6.5 g/dL (6.3-8.2)
[2021-06-16] MEDS ORDERED: ASPIRIN 81 MG PO SCH (09:00)
[2021-06-16] MEDS ORDERED: ATORVASTATIN 80 MG TAB PO SCH (09:00)
--- NOTE | 2021-06-16 10:33 | ECHOF ---
Referral Reason: MEASUREMENTS -------- HEIGHT: 170.2 cm WEIGHT: 99.3 kg BP: IVSd: 2.0 cm (0.6 - 1.1) LVIDd: 3.7 cm (3.9 - 5.3) LVPWd: 2.1 cm (0.6 - 1.1) IVSs: 2.7 cm LVIDs: 2.1 cm LVPWs: 2.6 cm Ao Diam: 3.3 cm (2.0 - 3.7) AV Cusp: 2.0 cm (1.5 - 2.6) LA Diam: 2.3 cm (2.7 - 3.8) MV EXCURSION: 13.883 mm (> 18.000) MV EF SLOPE: 58 mm/s (70 - 150) EPSS: 0.3 cm MV E Олег: 0.76 m/s MV DecT: 260 ms MV A Олег: 0.82 m/s MV E/A Ratio: 0.93 AV maxP.59 mmHg AV meanP.95 mmHg RAP: 5.00 mmHg RVSP: 12.60 mmHg FINDINGS -------- Sinus rhythm. This was a technically difficult study with suboptimal views. The left ventricular size is normal. There is severe concentric left ventricular hypertrophy. Ove rall left ventricular systolic function is normal with, an EF between 55 - 60 %. The right ventricle is normal in size. The left atrial size is normal. The right atrial size is normal. Lumason used The aortic valve was not well visualized. The mitral valve is normal. There is trace mitral regurgitation. The tricuspid valve appears structurally normal. Trace tricuspid regurgitation present. Right diamond tricular systolic pressure is normal at < 35 mmHg. The pulmonic valve was not well visualized. The aortic root size is normal. IVC Not well visulized. There is no pericardial effusion. CONCLUSIONS -------- 1. This was a technically difficult study with suboptimal views. 2. There is severe concentric left ventricular hypertrophy. 3. Overall left ventricular systolic function is normal with, an EF between 55 - 60 %. 4. There is trace mitral regurgitation. 5. Trace tricuspid regurgitation present. 6. There is no pericardial effusion. DIGITAL MEDIA STRATEGIST: Blank Mix RDCS
[2021-06-16] MEDS: ALPRAZolam 0.25 MG TAB PO PRN ×2 (11:58→22:35)
--- NOTE | 2021-06-16 13:31 | CONS ---
CONSULTATION REASON FOR CONSULT: Renal failure. HISTORY OF PRESENT ILLNESS: Patient is a 76-year-old male with a history of chronic kidney disease, NKF stage 3B to 4, with recent worsening of renal function as outpatient with serum creatinine going up to 2.9 and 2.8 mg/dL in February of 2021. Etiology is solitary kidney and nephrosclerosis. H/o R nephrectomy for renal cell cancer. Patient was admitted to the hospital with complaints of chest pain on exertion. He was trying to cut down a tree. The patient does have underlying coronary artery disease with previous coronary interventions. He did rule in for acute MT and was initially being taken for cardiac catheterization, but this was held when his serum creatinine was noted to be 3.0 mg/dL yesterday. Overall, patient states that he is currently [id number]. He has been voiding and his serum creatinine is noted to be lower, at 2.5 mg/dL today. Patient's blood pressure has not been low; in fact, on the higher side. The patient denies use of any nonsteroidal anti-inflammatory agents at home. He is maintained on loop diuretics. I do not see GORDON inhibitors or angiotensin receptor blockers on his home med list. PAST MEDICAL HISTORY: Significant for CKD stage 3B, with recent worsening of renal function as outpatient, history of coronary artery disease, hypertension, MT, hyperlipidemia, history of nephrectomy for renal cell cancer on the right side. PAST SURGICAL HISTORY: Right nephrectomy, coronary artery bypass surgery, cardiac catheterization, coronary stent placement, cholecystectomy. SOCIAL HISTORY: Negative for smoking, drug abuse or alcohol abuse. MEDICATIONS: Home medications include aspirin, baclofen, vitamin D, diltiazem, Lasix, [place], magnesium, multivitamins, Crestor, sotalol, calcitriol, HydroDIURIL, Keppra, Tegretol. ALLERGIES: ALLERGIES include FLEXERIL, FISH, HYDRALAZINE, NIACIN, SHELLFISH, SIMVASTATIN. REVIEW OF SYSTEMS: As per HPI. Other systems negative. PHYSICAL EXAMINATION: Patient is comfortable, awake, alert, oriented x3, not in any acute distress. Blood pressure 163/87, heart rate 59 per minute. He is afebrile. EXAMINATION OF THE HEART: S1 and S2. EXAMINATION OF LUNGS: Bilateral breath sounds are heard. ABDOMEN: Soft, nontender. LOWER EXTREMITIES: Examination of lower extremities shows trace edema bilaterally. RAIL MAINTENANCE WORKER EXAM: Grossly intact. LABS: Sodium 142, potassium 3.6, chloride 104, CO2 is 29.8, BUN 74, creatinine 3.0. Today serum creatinine is down to 2.59 with potassium 3.7, hemoglobin 10.9 g/dL. UA is completely benign. ASSESSMENT: 1. Acute kidney injury with recent worsening of renal function as outpatient. Rule out obstructive uropathy. Check ultrasound of the kidneys. Check bladder scan. Patient's serum creatinine is currently improved to 2.5 from 3.0 on admission. He is not on IV fluids. I will continue with the current dose of Lasix. UA is quite benign. 2. Chronic kidney disease NKF stage 3, with previous creatinine around 1.7 to 1.8, most recently increased to about 2.8 mg/dL in February of 2021. Pt has solitary kidney. No nephrotoxic agents on board. Check ultrasound and check bladder scan. Rule out urine retention. UA is benign with 1+ protein; no blood or cells noted at this time. 3. Acute [id number] myocardial infarction, being followed by Cardiology with plans for medical treatment. Cardiac catheterization on hold currently, given his advanced renal failure. Hopefully, as renal function continues to improve, we can proceed with cardiac catheterization in the next day or two. 4. History of cardiomyopathy. Echocardiogram done on 06/15/2021 shows ejection fraction 55% to 60% with no other major abnormalities detected except for severe concentric LVH. 5. Chronic kidney disease mineral bone disorder, maintained on calcitriol. 6. History of right nephrectomy for renal call cancer. PLAN: Check ultrasound of the kidneys. Continue with current dose of Lasix. Check bladder scan post-void. Continue with the Rocaltrol. The patient is also on hydrochlorothiazide along with the Lasix, which we can continue for now, as his blood pressure is on the higher side. Repeat labs in a.m. Agree with holding cardiac cath for another 1 to 2 days if there is no acute emergency. Thank you for this consultation. Will continue to follow the patient with you during his hospitalization. MMODL / IJN: [id number] / TAVO
--- NOTE | 2021-06-16 13:35 | US ---
EXAMINATION TYPE: US kidneys/renal and bladder DATE OF EXAM: 06/16/2021 COMPARISON: NONE CLINICAL HISTORY: RF. RF per order. Hx renal cancer, right kidney removed. EXAM MEASUREMENTS: Right Kidney: Removed. Left Kidney: 11.5 x 5.7 x 5.7 cm Left Kidney: Appears heterogeneous. Complex area seen: 2.3 x 2.2 x 2.5 cm. Bladder: Appears anechoic. Bilateral Jets seen: Left jet seen. Hx right kidney removed. IMPRESSION: Within the left kidney there is a hypoechoic exophytic nodule measuring 2.3 x 2.5 cm which does not m eet the arteriovenous simple cyst. Recommend MRI.
--- NOTE | 2021-06-16 19:53 | P.PN ---
Subjective Progress Note Date: 06/16/21 Kelton Medley, is a 76-year-old male who presented to [facility] emergency room with a chief complaint of chest pain and shortness of breath, he was evaluated at [facility], his EKG and cardiac enzymes were within normal limits, however due to his extensive history of coronary artery disease including history of angioplasty and 5 stent placement in the past, he was started on IV heparin and was transferred to [facility] for further evaluation and treatment. Patient stated that he was working in his yard when he started having pain in the midsternal area he was also having shortness of breath he to 3 sublingual nitroglycerin at home and aspirin without complete resolution of his chest pain and he decided to go to emergency room. He was evaluated at [facility] his vital examination on presentation revealed a temperature of 97.6 pulse 60 respiration 18 blood pressure 141/77 pulse ox 99% on room air Laboratory data on presentation revealed a white blood count of 8.4 hemoglobin 11.3 platelet count 205 INR 1.1 d-dimer 8.61 First troponin level was 0.086 however subsequence troponin level was up to 3.80 BUN was elevated at 74 and creatinine elevated at 3.0 Patient was admitted to telemetry floor cardiology consultation was requested he was kept on IV heparin Patient has a known history of coronary artery disease with previous history of stent placement 5 in the past he also has a known history of cardiomyopathy and history of chronic kidney disease On 06/16/2021 patient was seen and examined on the telemetry floor he is alert and oriented 3 in no apparent distress at this time he denies any symptoms there is no fever or chills no headache or dizziness no chest pain no shortness of breath no cough no nausea or vomiting no abdominal pain no diarrhea and no urinary symptoms and is able to walk in his room without any difficulty, kidney function slightly improved with a BUN of 61 and a creatinine of 2.59 Kidney ultrasound revealing a hypoechoic exophytic nodule in the left kidney measuring 2.32.5 cm with a recommendation to proceed with MRI Objective - Vital Signs Vital signs: Vital Signs Temp 97.6 F 06/16/21 04:00 Pulse 65 06/16/21 04:00 Resp 16 06/16/21 04:00 BP 153/79 06/16/21 04:00 Pulse Ox 95 06/16/21 04:00 Intake & Output 06/15/21 06/16/21 06/16/21 18:59 06:59 18:59 Intake Total 214.112 849.597 200 Output Total 700 Balance 214.112 149.597 200 Weight 94.5 kg 94 kg Intake: Intake, IV Titration 94.112 69.597 Amount Heparin Sod,Pork in 0.45% 94.112 69.597 NaCl 25,000 unit In 0.45 % NaCl 1 250ml.bag @ 10. 03 UNITS/KG/HR 10 mls/hr IV .Q24H [facility] Rx#: [id number] Oral 120 780 200 Output: Urine 700 Other: Voiding Method Toilet Toilet Urinal Urinal # Voids 2 - Exam In general patient is alert and oriented x3 in no distress HEENT head normocephalic and atraumatic Neck is supple no JVD no goiter no lymphadenopathy no carotid bruit Chest examination is clear to auscultation no crackles no wheezing Cardiac exam reveals regular heart sounds S1 and S2 no gallops no murmurs Abdomen is soft nontender no organomegaly with normal bowel sounds Extremity exam reveals no edema no cyanosis or clubbing Neurological examination reveals no gross focal deficits - Labs CBC & Chem 7: 06/16/21 07:49 06/16/21 08:16 Labs: Abnormal Lab Results - Last 24 Hours (Table) 06/15/21 06/15/21 06/15/21 Range/Units 05:15 09:28 17:34 RBC (4.30-5.90) m/uL Hgb (13.0-17.5) gm/dL Hct (39.0-53.0) % MCV (80.0-100.0) fL APTT 30.4 H 37.5 H (22.0-30.0) sec BUN 74.0 H (9.0-27.0) mg/dL Creatinine 3.0 H (0.6-1.5) mg/dL Est GFR (CKD-EPI)AfAm 22.5 L (60.0-200.0) Est GFR (CKD-EPI)NonAf 19.4 L (60.0-200.0) BUN/Creatinine Ratio 24.67 H (12.00-20.00) Ratio Glucose (74-99) mg/dL Calcium 8.3 L (8.7-10.3) mg/dL Total Bilirubin 0.2 L (0.3-1.2) mg/dL AST 90 H (14-35) U/L Total Protein 6.1 L (6.2-8.2) g/dL Urine Protein (Negative) Urine Mucus (None) /hpf 06/15/21 06/16/21 06/16/21 Range/Units 21:10 00:25 07:49 RBC 3.41 L (4.30-5.90) m/uL Hgb 10.9 L (13.0-17.5) gm/dL Hct 34.5 L (39.0-53.0) % MCV 101.2 H (80.0-100.0) fL APTT 67.4 H (22.0-30.0) sec BUN (9.0-27.0) mg/dL Creatinine (0.6-1.5) mg/dL Est GFR (CKD-EPI)AfAm (60.0-200.0) Est GFR (CKD-EPI)NonAf (60.0-200.0) BUN/Creatinine Ratio (12.00-20.00) Ratio Glucose (74-99) mg/dL Calcium (8.7-10.3) mg/dL Total Bilirubin (0.3-1.2) mg/dL AST (14-35) U/L Total Protein (6.2-8.2) g/dL Urine Protein 1+ H (Negative) Urine Mucus Rare H (None) /hpf 06/16/21 06/16/21 Range/Units 07:49 08:16 RBC (4.30-5.90) m/uL Hgb (13.0-17.5) gm/dL Hct (39.0-53.0) % MCV (80.0-100.0) fL APTT 48.3 H (22.0-30.0) sec BUN 61 H (9.0-27.0) mg/dL Creatinine 2.59 H (0.6-1.5) mg/dL Est GFR (CKD-EPI)AfAm (60.0-200.0) Est GFR (CKD-EPI)NonAf (60.0-200.0) BUN/Creatinine Ratio (12.00-20.00) Ratio Glucose 140 H (74-99) mg/dL Calcium (8.7-10.3) mg/dL Total Bilirubin (0.3-1.2) mg/dL AST 118 H (14-35) U/L Total Protein (6.2-8.2) g/dL Urine Protein (Negative) Urine Mucus (None) /hpf Assessment and Plan Plan: 1. Acute non-ST elevation myocardial infarction 2. Underlying known history of severe coronary artery disease was previous history of coronary artery bypass graft surgery and history of multiple stent placements in the past 3. Underlying history of chronic kidney disease, will consult nephrology, continue IV hydration at this time 4. Underlying history of seizure disorder maintained on Tegretol and Keppra continue 5. Underlying history of hypertension 6. Underlying history of hyperlipidemia 7. Underlying history of cardiomyopathy 8. Underlying history of cardiac Arrhythmia patient and able to give details he is maintained on sotalol and has a history of pacemaker/defibrillator implant 9. History of kidney cancer status post right nephrectomy. Kidney ultrasound done during this visit reveals a left kidney hypoechoic exam for take nodule sylvia suring 2.32.5 cm recommendation is to proceed with an MRI. Possibly this will be done as outpatient after current cardiac event. At this time medication were reviewed and reordered Continue IV heparin and IV hydration Cardiology are following Will consult nephrology Patient had chronic kidney disease and previous history of kidney cancer and right nephrectomy Will follow closely
[2021-06-16] MEDS: ATORVASTATIN 40 MG TAB PO SCH (20:41)
[2021-06-16] MEDS: HEPARIN SOD,PORK IN 0.45% NACL 25,000 UNIT in 0.45% NACL 1 250ML.BAG IV SCH (22:35)
[2021-06-17 07:25] LABS: Basophils % (A) 0 %; Eosinophils # (A) 0.2 k/uL (0-0.7); Eosinophils % (A) 3 %; HCT 34.9 % (39.0-53.0); Lymphocytes % (A) 28 %; MCH 32.1 pg (25.0-35.0); MCHC 31.5 g/dL (31.0-37.0); MCV 101.8 fL (80.0-100.0); Macrocytosis Slight; Mean Platelet Volume 7.6; Monocytes # (A) 0.5 k/uL (0-1.0); Monocytes % (A) 7 %; Neutrophils # (A) 4.3 k/uL (1.3-7.7); Neutrophils % (A) 58 %; Platelet Count 176 k/uL (150-450); RBC 3.43 m/uL (4.30-5.90); RDW 13.8 % (11.5-15.5); WBC 7.4 k/uL (3.8-10.6)
[2021-06-17 07:42] LABS: Calcium 8.8 mg/dL (8.4-10.2); Potassium 3.8 mmol/L (3.5-5.1); Total Bilirubin 0.4 mg/dL (0.2-1.3); Total Protein 6.5 g/dL (6.3-8.2)
[2021-06-17 07:58] VITALS: RESP 16
[2021-06-17] MEDS: FUROSEMIDE 40 MG TAB PO SCH (07:58)
[2021-06-17] MEDS: carBAMazepine 200 MG TAB PO SCH (07:58)
[2021-06-17] MEDS: ASPIRIN 81 MG PO SCH (07:58)
[2021-06-17] MEDS: MAGNESIUM OXIDE 400 MG TAB PO SCH (07:58)
[2021-06-17] MEDS: SOTALOL 120 MG TAB PO SCH (07:58)
[2021-06-17] MEDS: CLOPIDOGREL 75 MG TAB PO SCH (07:58)
[2021-06-17] MEDS: MULTIVITAMINS, THERA 1 EACH TAB PO SCH (07:59)
[2021-06-17] MEDS: DILTIAZEM CD 180 MG CAP.ER.24H PO SCH (07:59)
[2021-06-17] MEDS: CHOLECALCIFEROL 25 MCG (1000 IU) TABLET PO SCH (07:59)
[2021-06-17] MEDS: HEPARIN SODIUM 1,000 UN/ML (10ML VL) IV PRN (08:00)
--- NOTE | 2021-06-17 09:32 | P.PN ---
Subjective Progress Note Date: 06/17/21 HISTORY OF PRESENT ILLNESS: This is a 76-year-old gentleman who sees a supervisor plasma out of this area with a past medical history significant for coronary artery disease and prior coronary artery bypass grafting as well as stenting with unknown details, we are in process of getting the previous medical records including the last heart catheterization as well as history of cardiomyopathy and also hypertension and dyslipidemia and status post what it seems to be an AICD. The patient was transferred from [facility] emergency department to the emergency department here for further evaluation of chest discomfort. The patient somewhat is a poor historian. He stated that he presented complaining of chest pressure and epigastric discomfort mainly without any associated symptoms of sweating or shortness of breath or dizziness or lightheadedness or any feeling of heart racing or fluttering or presyncope or syncope. The EKG showed sinus rhythm with significant/ischemic ST and T wave abnormalities. Her troponin came in to be abnormal and consistent with acute coronary syndrome. The patient currently is on heparin and he stated that his pain has improved significantly but he continues to have about 1/10 chest discomfort at this point. Unfortunately his creatinine is abnormal and came in to be about 3 was GFR of 20 only. He does have an underlying chronic kidney disease. We don't have any prior echocardiogram on the patient. We are in process of getting a copy of the last heart catheterization from [facility]. Beside that and meanwhile I'm going to continue hydrating the patient and monitor the kidney function and electrolytes and consider coronary angiogram in the next 24-48 hours if the creatinine is improved and she continues to have symptoms of chest pain or chest discomfort. I will also obtain an echocardiogram was Doppler to establish LV function. We'll continue follow-up with the patient. 06/16/2021 The patient was seen this morning. He is chest pain-free. Unfortunately without have the blood work back for today and I ordered kidney function urgent. Also the echocardiogram still pending. He denies any chest pain or chest discomfort and he stated that he is feeling much better compared to yesterday. He continues to be on dual antiplatelet therapy along with a statin along with beta mariella. He is also on heparin IV. 06/17/2021 Patient examined this morning at the bedside. He denies chest pain or pressure. Denies shortness of breath. He remains on IV heparin. He states he has been ambulating in the hallway without difficulty. Echocardiogram completed revealed ejection fraction 55-60%, trace mitral regurgitation, and trace tricuspid regurgitation. PHYSICAL EXAM: VITAL SIGNS: Reviewed. GENERAL: Well-developed in no acute distress. NECK: Supple. No JVD or thyromegaly LUNGS: Respirations even and unlabored. Lungs essentially clear to auscultation bilaterally. HEART: Regular rate and rhythm. S1 and S2 heard. Systolic murmur noted. EXTREMITIES: Normal range of motion. No clubbing or cyanosis. Peripheral pulses intact. No lower extremity edema ASSESSMENT: NSTEMI Acute on chronic kidney disease Coronary artery disease with previous CABG and PCI History of cardiomyopathy with AICD Hypertension Hyperlipidemia PLAN: Discontinue IV heparin Continue additional cardiac medications Patient does not want to undergo cardiac catheterization and states "I only have one kidney. I do not want to take the risk of damaging my other kidney". Patient is stable from a cardiac standpoint Nurse practitioner note has been reviewed by physician. Signing provider agrees with the documented findings, assessment, and plan of care. Objective - Vital Signs Vital signs: Vital Signs Temp 98.4 F 06/17/21 07:56 Pulse 62 06/17/21 07:56 Resp 16 06/17/21 07:56 BP 160/72 06/17/21 07:56 Pulse Ox 97 06/17/21 07:56 Intake & Output 06/16/21 06/17/21 06/17/21 18:59 06:59 18:59 Intake Total 262.902 108.479 75.296 Balance 262.902 108.479 75.296 Weight 96.3 kg Intake: Intake, IV Titration 62.902 108.479 75.296 Amount Heparin Sod,Pork in 0.45% 62.902 108.479 75.296 NaCl 25,000 unit In 0.45 % NaCl 1 250ml.bag @ 10. 03 UNITS/KG/HR 10 mls/hr IV .Q24H [facility] Rx#: [id number] Oral 200 Other: Voiding Method Toilet Urinal # Voids 2 1 - Labs CBC & Chem 7: 06/17/21 06:51 06/17/21 06:51 Labs: Abnormal Lab Results - Last 24 Hours (Table) 06/17/21 06/17/21 06/17/21 Range/Units 06:51 06:51 06:51 RBC 3.43 L (4.30-5.90) m/uL Hgb 11.0 L (13.0-17.5) gm/dL Hct 34.9 L (39.0-53.0) % MCV 101.8 H (80.0-100.0) fL APTT 41.9 H (22.0-30.0) sec Chloride 109 H (98-107) mmol/L BUN 50 H (9-20) mg/dL Creatinine 2.57 H (0.66-1.25) mg/dL AST 77 H (17-59) U/L
--- NOTE | 2021-06-17 12:21 | P.DS ---
Providers Date of admission: 06/16/21 13:40 Expected date of discharge: 06/17/21 Attending physician: Jose Blair Consults: 06/14/21 19:01 Consult Physician Urgent Consulting Provider: Edison Ferreira Consult Reason/Comments: chest pain Do you want consulting provider notified?: Yes 06/17/21 09:02 Consult Physician Routine Consulting Provider: Isaura Wilson Consult Reason/Comments: yes Do you want consulting provider notified?: Yes Primary care physician: Nella Solis [facility] Course: Discharge diagnosis 1. Acute non-ST elevation myocardial infarction 2. Underlying known history of severe coronary artery disease was previous history of coronary artery bypass graft surgery and history of multiple stent placements in the past 3. Underlying history of chronic kidney disease, will consult nephrology, continue IV hydration at this time 4. Underlying history of seizure disorder maintained on Tegretol and Keppra continue 5. Underlying history of hypertension 6. Underlying history of hyperlipidemia 7. Underlying history of cardiomyopathy 8. Underlying history of cardiac Arrhythmia patient and able to give details he is maintained on sotalol and has a history of pacemaker/defibrillator implant 9. History of kidney cancer status post right nephrectomy. Kidney ultrasound done during this visit reveals a left kidney hypoechoic exam for take nodule measuring 2.32.5 cm recommendation is to proceed with an MRI. Possibly this will be done as outpatient after current cardiac event. Per cardiology services patient does not want to go any cardiac catheterization because of the possibility risk to his kidney. IV heparin DC'd. Patient has been cleared for discharge from cardiology standpoint Hospital course Kelton Medley, is a 76-year-old male who presented to [facility] emergency room with a chief complaint of chest pain and shortness of breath, he was evaluated at [facility], his EKG and cardiac enzymes were within normal limits, however due to his extensive history of coronary artery disease including history of angioplasty and 5 stent placement in the past, he was started on IV heparin and was transferred to [facility] for further evaluation and treatment. Patient stated that he was working in his yard when he started having pain in the midsternal area he was also having shortness of breath he to 3 sublingual nitroglycerin at home and aspirin without complete resolution of his chest pain and he decided to go to emergency room. He was evaluated at [facility] his vital examination on presentation revealed a temperature of 97.6 pulse 60 respiration 18 blood pressure 141/77 pulse ox 99% on room air Laboratory data on presentation revealed a white blood count of 8.4 hemoglobin 11.3 platelet count 205 INR 1.1 d-dimer 8.61 First troponin level was 0.086 however subsequence troponin level was up to 3.80 BUN was elevated at 74 and creatinine elevated at 3.0 Patient was admitted to telemetry floor cardiology consultation was requested he was kept on IV heparin Patient has a known history of coronary artery disease with previous history of stent placement 5 in the past he also has a known history of cardiomyopathy and history of chronic kidney disease On 06/16/2021 patient was seen and examined on the telemetry floor he is alert and oriented 3 in no apparent distress at this time he denies any symptoms there is no fever or chills no headache or dizziness no chest pain no shortness of breath no cough no nausea or vomiting no abdominal pain no diarrhea and no urinary symptoms and is able to walk in his room without any difficulty, kidney function slightly improved with a BUN of 61 and a creatinine of 2.59 Kidney ultrasound revealing a hypoechoic exophytic nodule in the left kidney measuring 2.32.5 cm with a recommendation to proceed with MRI On 06/17/2021 patient alert and oriented 3. Patient expresses that he is eager to go home. Patient was evaluated by cardiology services per cardiology services patient does not want to undergo cardiac catheterization. Patient has been cleared for discharge from cardiology and nephrology services. Patient to follow-up PCP in regards to kidney nodule. Patient also follow up with cardiology services for further management. At this time patient denies chest pain or shortness breath. Patient denies nausea vomiting or diarrhea. Patient denies any urinary burning or frequency Patient Condition at Discharge: Stable Plan - Discharge Summary Discharge Rx Participant: No New Discharge Prescriptions: New Diltiazem Cd [Cardizem CD] 240 mg PO DAILY 30 Days #30 Clopidogrel [Plavix] 75 mg PO DAILY 30 Days #30 tab Continue Baclofen 10 mg PO Q6H PRN PRN Reason: Muscle Spasm calcitrioL [Calcitriol] 0.25 mcg PO Q7D Sotalol [Betapace] 120 mg PO BID Nitroglycerin Sl Tabs [Nitrostat] 0.4 mg SL Q5M PRN PRN Reason: Chest Pain levETIRAcetam [Keppra] 1,500 mg PO BID hydroCHLOROthiazide [Hydrodiuril] 25 mg PO DAILY PRN PRN Reason: Edema Multivitamins, Thera [Multivitamin (formulary)] 1 tab PO DAILY HYDROcodone/APAP 7.5-325MG [[place] 7.5-325] 1 tab PO Q6H PRN PRN Reason: Pain Furosemide [Lasix] 40 mg PO DAILY Cholecalciferol [Vitamin D3 (25 Mcg = 1000 Iu)] 25 mcg PO DAILY carBAMazepine [TEGretol] 200 mg PO BID Magnesium 200 mg PO BID Rosuvastatin Calcium [Crestor] 40 mg PO DAILY Aspirin EC [Ecotrin Low Dose] 81 mg PO DAILY Discontinued Diltiazem HCl [Diltiazem HCl 24Hr ER] 180 mg PO DAILY Discharge Medication List Aspirin EC [Ecotrin Low Dose] 81 mg PO DAILY 06/14/21 [History] Baclofen 10 mg PO Q6H PRN 06/14/21 [History] Cholecalciferol [Vitamin D3 (25 Mcg = 1000 Iu)] 25 mcg PO DAILY 06/14/21 [History] Furosemide [Lasix] 40 mg PO DAILY 06/14/21 [History] HYDROcodone/APAP 7.5-325MG [[place] 7.5-325] 1 tab PO Q6H PRN 06/14/21 [History] Magnesium 200 mg PO BID 06/14/21 [History] Multivitamins, Thera [Multivitamin (formulary)] 1 tab PO DAILY 06/14/21 [History] Nitroglycerin Sl Tabs [Nitrostat] 0.4 mg SL Q5M PRN 06/14/21 [History] Rosuvastatin Calcium [Crestor] 40 mg PO DAILY 06/14/21 [History] Sotalol [Betapace] 120 mg PO BID 06/14/21 [History] calcitrioL [Calcitriol] 0.25 mcg PO Q7D 06/14/21 [History] carBAMazepine [TEGretol] 200 mg PO BID 06/14/21 [History] hydroCHLOROthiazide [Hydrodiuril] 25 mg PO DAILY PRN 06/14/21 [History] levETIRAcetam [Keppra] 1,500 mg PO BID 06/14/21 [History] Clopidogrel [Plavix] 75 mg PO DAILY 30 Days #30 tab 06/17/21 [Rx] Diltiazem Cd [Cardizem CD] 240 mg PO DAILY 30 Days #30 06/17/21 [Rx] Follow up Appointment(s)/Referral(s): Isaura Wilson MD [STAFF PHYSICIAN] - 1 Week Nella Solis MD [Primary Care Provider] - 1-2 days Edison Ferreira MD [STAFF PHYSICIAN] - 1 Week Patient Instructions/Handouts: Chest Pain (GEN) Discharge Disposition: HOME SELF-CARE
[2021-06-17 12:57] VITALS: BP 168/69; PULSE 68; TEMP 97
--- NOTE | 2021-06-17 14:40 | PN ---
PROGRESS NOTE Patient is seen for followup for acute kidney injury on top of chronic kidney disease. The patient was admitted to the hospital with chest pain. He ruled in for acute NM. However, cardiac catheterization was not performed on admission secondary to elevated creatinine. Currently patient is fairly stable. No complaints of chest pain. Serum creatinine is slightly better, down from 3.0 to 2.5. Patient has had good urine output. Ultrasound did not show any evidence of hydronephrosis. Patient does have a solitary kidney with history of right nephrectomy for renal cell cancer. At this time patient states that he would like to hold off on the cardiac catheterization unless it is absolutely indicated. PHYSICAL EXAMINATION: On examination today, blood pressure is 160/72, heart rate 62 per minute. He is afebrile. EXAMINATION OF THE HEART: S1 and S2. EXAMINATION OF LUNGS: Bilateral breath sounds are heard. ABDOMEN: Soft, nontender. LOWER EXTREMITIES: Examination of lower extremities shows no evidence of edema. 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 LABS: Sodium of 141, potassium 3.8, chloride 109, BUN 50, creatinine 2.57, hemoglobin 11.0 g/dL. ASSESSMENT: 1. Acute kidney injury, possibly prerenal, currently improved. May be a component of acute tubular necrosis as well. Serum creatinine down to 2.59 and 2.57. Patient is maintained on small dose of diuretics, which I will continue for now. At this time he would like to hold off on the cardiac catheterization unless absolutely indicated by Cardiology. 2. Status post acute myocardial infarction, being followed by Cardiology. Will discuss with Cardiology regarding plans for cardiac catheterization. 3. Solitary kidney with history of right nephrectomy. 4. Right renal lesion; will need further workup with MRI or CT without IV contrast down the road as outpatient. 5. Hypertension, uncontrolled. I will increase the Cardizem to 240 mg. Heart rate is around 60s. PLAN: Continue current dose of Lasix. Increase Cardizem to 240, as blood pressure is uncontrolled. Recommend to wait for cardiac catheterization unless absolutely indicated by Cardiology. If the patient has recurring symptoms, okay to proceed with cardiac cath. MMODL / IJN: [id number] /
[2021-06-18] MEDS ORDERED: DILTIAZEM CD 240 MG CAP.ER.24H PO SCH (09:00)
== END 2021-06-17 13:13 | disposition home or self-care (01) | DRG 280 ==
LOC: EC 18:00 → 6NMEDSUR 19:00 → 3SCARD 06-15 00:41 → OBSVTOIN 06-16 13:40
PROVIDERS: ADMIT Internal Medicine; ATTEND Internal Medicine
DX: I21.4 Non-ST elevation (NSTEMI) myocardial infarction (principal); N17.0 Acute kidney failure with tubular necrosis; I42.9 Cardiomyopathy, unspecified; I25.110 Atherosclerotic heart disease of native coronary artery with unstable angina pectoris; N18.32 Chronic kidney disease, stage 3b; I45.10 Unspecified right bundle-branch block; G40.909 Epilepsy, unspecified, not intractable, without status epilepticus; E78.5 Hyperlipidemia, unspecified; I08.1 Rheumatic disorders of both mitral and tricuspid valves; M89.9 Disorder of bone, unspecified; I25.2 Old myocardial infarction; Z79.82 Long term (current) use of aspirin; Z79.899 Other long term (current) drug therapy; Z85.528 Personal history of other malignant neoplasm of kidney; Z90.5 Acquired absence of kidney; Z95.1 Presence of aortocoronary bypass graft; Z95.5 Presence of coronary angioplasty implant and graft; Z91.013 Allergy to seafood; Z88.8 Allergy status to other drugs, medicaments and biological substances; Z95.810 Presence of automatic (implantable) cardiac defibrillator; Z90.49 Acquired absence of other specified parts of digestive tract
CPT/HCPCS: 36415; 76770; 78582; 80053; 81001; 84484; 85025; 85379; 85610; 85730; 93005; 93306; 93970; 99285

== ENCOUNTER → 2024-01-05 | Outpatient (CLI) | payer MEDICARE ==
[2024-01-05 12:00] LABS: African American GFR (CKD) 20 (>60 ml/min/1.73 sqM); Blood Urea Nitrogen 42 mg/dL (9-20); Non-African American GFR(CKD) 17 (>60 ml/min/1.73 sqM)
--- NOTE | 2024-01-05 13:40 | CT ---
EXAMINATION TYPE: CT abdomen pelvis wo con DATE OF EXAM: 01/05/2024 COMPARISON: None INDICATION: AAA without rupture DLP: 665.80 mGycm, Automated exposure control for dose reduction was used. CONTRAST: 0 mL of Isovue 300. Study performed without Oral Contrast TECHNIQUE: Axial images were obtained from above the diaphragm to the pubic rami in the axial plane a t 5 mm thick sections. Reconstructed images are reviewed on the computer in the coronal plane. FINDINGS: Limited CT sections are obtained the lung bases. The lung bases are clear. CT ABDOMEN: Liver: Normal Spleen: Normal Pancreas: Normal Adrenal glands: The adrenal glands are normal. Gallbladder: Normal Kidneys: No masses are evident. No hydronephrosis is present. There is a 1.8 cm cyst on the posteri or lateral mid left kidney. Right kidney appears to be absent. There is a couple of calcifications in the renal bed. Aorta: Vascular calcifications within the aorta. There is a 4.0 cm infrarenal abdominal aortic aneury sm terminating at the bifurcation. Multiple surgical clips are adjacent to the aorta. Inferior vena cava: Normal. CT PELVIS: Loops of bowel within the abdomen and pelvis are normal. There are loops of bowel which are incom pletely distended or lack oral contrast limiting their evaluation. Appendix: Normal as visualized. Urinary bladder: Normal. Genitourinary structures: Prostate is prominent Osseous structures: No suspicious lytic or sclerotic lesions. IMPRESSION: 1. Infrarenal Abdominal aortic aneurysm measuring 4.0 cm terminating at the bifurcation. 2. There appears to be a prior right nephrectomy
== END | disposition home or self-care (01) ==
LOC: RADCTMAIN 11:11
PROVIDERS: ATTEND Internal Medicine Interventional Cardiology
DX: I71.40 Abdominal aortic aneurysm, without rupture, unspecified (principal); I71.43 Infrarenal abdominal aortic aneurysm, without rupture; Z90.5 Acquired absence of kidney
CPT/HCPCS: 36415; 74176; 82565; 84520

== ENCOUNTER 2025-02-08 07:28 | Day surgery (SDC) | payer MEDICARE ==
[~2025-02-08 07:28] MED LIST: LACTATED RINGERS 1,000 ML IV SCH; LIDOCAINE 1% (10MG/ML) FOR IV START INTRADERMA PRN; MIDAZOLAM 2 MG/2 ML VIAL IV PRN; fentaNYL (PF) 50 MCG/ML 2 ML AMP IVP PRN
[2025-02-08] MEDS: IV FLUID CONTINUATION 1,000 ML IV ONE (08:05)
[2025-02-08 08:18] LABS: HCT 31.3 % (39.6-50.0); HGB 10.1 g/dL (13.0-17.0); MCH 31.2 pg (27.0-32.0); MCHC 32.3 g/dL (32.0-37.0); MCV 96.6 fL (80.0-97.0); Mean Platelet Volume 9.8 fL (9.5-12.2); Platelet Count 153 10*3/uL (140-440); RBC 3.24 10*6/uL (4.40-5.60); RDW 13.2 % (11.5-14.5); WBC 8.65 10*3/uL (4.50-10.00)
[2025-02-08] MEDS: ACETAMINOPHEN TAB 500 MG TAB PO PRN (08:19)
[2025-02-08] MEDS: ONDANSETRON 4 MG/2 ML VIAL IVP ONE (08:19)
[2025-02-08] MEDS: DEXAMETHASONE SOD PHOSPHATE 4 MG/ML 1 ML VIAL IV ONE (08:20)
[2025-02-08] MEDS: HEPARIN SODIUM,PORCINE 5,000 UNIT/ML 1 ML VIAL SQ PRN (08:20)
[2025-02-08] MEDS: SODIUM CHLORIDE 0.9% 1,000 ML IV STA (08:23)
[2025-02-08] MEDS ORDERED: GLYCOPYRROLATE 0.2 MG/ML 2 ML VIAL ONE (09:23)
[2025-02-08] MEDS ORDERED: fentaNYL (PF) 50 MCG/ML 2 ML AMP ONE (09:23)
[2025-02-08] MEDS ORDERED: PROPOFOL 10 MG/ML 20 ML VIAL IV ONE (09:23)
[2025-02-08] MEDS ORDERED: NEOSTIGMINE 1 MG/ML 10 ML VIAL ONE (09:23)
[2025-02-08] MEDS ORDERED: LIDOCAINE 1% INJ 10MG/ML (20 ML MDV) ONE (09:23)
[2025-02-08] MEDS ORDERED: SUCCINYLCHOLINE CHLORIDE 200 MG/10 ML VIAL IV ONE (09:23)
[2025-02-08] MEDS ORDERED: ROCURONIUM 10 MG/ML (5 ML VIAL) IV ONE (09:23)
[2025-02-08] MEDS ORDERED: ALBUTEROL HFA INHALER INHALATION ONE (09:23)
[2025-02-08] MEDS: ceFAZolin 2 GM in DEXTROSE 5% IN WATER 50 ML IVPB PRN (09:26)
[2025-02-08] MEDS: BUPIVACAINE (PF) 0.25% 30 ML VIAL SQ ONE (09:55)
[2025-02-08] MEDS ORDERED: NALOXONE 0.4 MG/ML 1 ML VIAL IV PRN (10:51)
[2025-02-08] MEDS ORDERED: HYDROcodone/APAP 5-325MG 1 EACH TAB PO PRN (10:51)
[2025-02-08 11:13] VITALS: TEMP 98.3
[2025-02-08 11:15] VITALS: RESP 16
--- NOTE | 2025-02-08 11:22 | P.OP ---
Date of Procedure: 02/08/25 Procedure(s) Performed: PREOPERATIVE DIAGNOSIS: Renal failure, abdominal adhesions POSTOPERATIVE DIAGNOSIS: Same PROCEDURE: Laparoscopic lysis of adhesions, peritoneal dialysis catheter insertion SURGEON: Ila EBL: Maricel ingram ANESTHESIA: General COMPLICATIONS: None OPERATIVE PROCEDURE: The patient was placed in the operative table in the supine position. The abdomen was prepped and draped in usual sterile fashion. An optical 5 mm trocar was used under the peritoneal cavity in the left upper quadrant. The abdomen was fully inflated. There were some adhesions to the omentum at the trocar insertion site. 2 additional 5 mm trocars were placed in the left upper quadrant laterally. There was no bowel seen or injury that occurred with our initial trocar placement. The patient had adhesions between the small bowel and omentum and the abdominal wall which were partially lysed. Once we reached to the central aspect of the abdomen the adhesions were much more dense and we could not safely lyse those small bowel adhesions. Despite that we had adequate space in the lower abdomen and bilateral gutter for peritoneal dialysis catheter insertion and function. A small vertical incision was made in the left periumbilical location. Dissection down through the subcutaneous tissues took place using electrocautery. The anterior rectus was divided vertically using the scalpel. The rectus was bluntly. The posterior rectus was visualized. An 0 Vicryl pursestring was placed. A small opening in the posterior rectus fascia and peritoneum took place using a Metzenbaum scissors. There were no adhesions to the suture that was placed. The pigtail catheter was advanced into the pelvis over a stylette. No resistance was met. The inner cuff was secured to the fascia using the 0 Vicryl pursestring that was placed. The catheter was tunneled to an exit site in the left lateral lower quadrant. The catheter was connected to the 1 L bag of saline and approximated 800 mL of saline was easily introduced into the peritoneal cavity. The fluid was then allowed to evacuate. The majority of the fluid was returned. The anterior rectus fascia was then reapproximated using a running 0 Vicryl stitch. The subcutaneous tissues reprepped using 3-0 Vicryl sutures and the skin using 4-0 Monocryl sutures. The outpatient dialysis adapter was applied to the end of the catheter. I then reinflated the abdomen laparoscopically. The catheter was inspected. It was sitting nicely in the midline. A single 2-0 Vicryl stitch was used to secure it loosely to the midline and this was tied down using the tie knot device. Pneumoperitoneum was fully evacuated at that time. Incisions closed at the laparoscopy sites with 4- 0 Monocryl sutures and glue. Sterile dressings were then applied after skin glue was placed over the incision. DISPOSITION: Stable to recovery room
[2025-02-08] MEDS: HYDROmorphone 0.5 MG/0.5 ML SYRINGE IVP PRN (12:01)
[2025-02-08 12:29] VITALS: BP 152/66; PULSE 60
== END 2025-02-08 13:09 | disposition home or self-care (01) ==
LOC: OR 07:28
PROVIDERS: ATTEND Surgery
DX: N18.4 Chronic kidney disease, stage 4 (severe) (principal); I12.9 Hypertensive chronic kidney disease with stage 1 through stage 4 chronic kidney disease, or unspecified chronic kidney disease; C64.9 Malignant neoplasm of unspecified kidney, except renal pelvis; E87.6 Hypokalemia; E21.3 Hyperparathyroidism, unspecified; I25.810 Atherosclerosis of coronary artery bypass graft(s) without angina pectoris; Z95.1 Presence of aortocoronary bypass graft
CPT/HCPCS: 84132; 85027; 49324; C1752; J0330; J1644; J1100; J2710; J0690; J2405; J2003; J3010; J2704; J1171; J0665; J1596

== ENCOUNTER → 2025-03-04 | Outpatient (CLI) | payer MEDICARE ==
--- NOTE | 2025-03-04 16:00 | XR ---
EXAMINATION TYPE: XR chest 2V DATE OF EXAM: 03/04/2025 3:30 PM COMPARISON: 11/08/2022 CLINICAL INDICATION: Male, 79 years old with history of R05.1 ACUTE COUGH, TECHNIQUE: XR chest 2V view(s) obtained. FINDINGS: The heart size is normal. Pacemaker overlies left chest. Sternotomy wires are present from prior CAB G. The pulmonary vasculature is normal. The lungs are clear. IMPRESSION: 1. No acute pulmonary process. [facility], , 03/04/2025 3:57 PM
== END | disposition home or self-care (01) ==
LOC: RADXRMAIN 15:18
PROVIDERS: ATTEND Family Medicine
DX: R05.1 Acute cough (principal)
CPT/HCPCS: 71046

== ENCOUNTER 2025-03-10 06:31 | Inpatient (IN) | payer MEDICARE ==
--- NOTE | 2025-03-10 07:02 | ED ---
General Adult HPI - General Chief complaint: Chest Pain Stated complaint: Chest Pain Time Seen by Provider: 03/10/25 06:47 Source: patient, family, EMS, RN notes reviewed Mode of arrival: EMS Limitations: no limitations - History of Present Illness Initial comments: 80-year-old female with multiple conditions including CAD with CABG, CHF, ESRD on peritoneal dialysis, and chronic cough presenting to the emergency department as a transfer from [facility] for complaints of chest pain in addition to elevated high-sensitivity troponin. Patient states that at 02:00 this morning she began to experience right-sided chest pain with radiation into his right arm where he states that he was having a difficulty with moving his right arm. States that while he was in the emergency department at [facility] he was given a nitro infusion which he is currently resting comfortably examination but is chest pain-free. He states that he has a pacemaker in place that is " "and would like to be evaluated by cardiology. Patient has been experiencing chronic cough which he states for over the past year however denies increasing sputum production or increase in frequency of cough. Endorses bilateral peripheral edema denies dyspnea at rest, endorses dyspnea on exertion. - Related Data Home Medications Medication Instructions Recorded Confirmed Aspirin EC [Ecotrin Low Dose] 81 mg PO DAILY 06/14/21 02/08/25 Cholecalciferol [Vitamin D3 (25 25 mcg PO DAILY 06/14/21 02/08/25 Mcg = 1000 Iu)] HYDROcodone/APAP 7.5-325MG [[place] 1 tab PO Q6H PRN 06/14/21 02/08/25 7.5-325] Magnesium 200 mg PO BID 06/14/21 02/08/25 Nitroglycerin Sl Tabs [Nitrostat] 0.4 mg SL Q5M PRN 06/14/21 02/08/25 Rosuvastatin Calcium [Crestor] 40 mg PO DAILY 06/14/21 02/08/25 Sotalol [Betapace] 120 mg PO BID 06/14/21 02/08/25 calcitrioL 0.25 mcg PO Q7D 06/14/21 02/08/25 carBAMazepine [TEGretol] 200 mg PO BID 06/14/21 02/08/25 levETIRAcetam [Keppra] 375 mg PO Q48H 06/14/21 02/08/25 ALPRAZolam [Xanax] 1 tab PO DIRECTED PRN 04/05/24 02/08/25 Metoprolol Succinate (ER) [Toprol 1 tab PO DAILY 04/05/24 02/08/25 XL] Omeprazole [PriLOSEC] 1 tab PO DAILY 04/05/24 02/08/25 Spironolactone 25 mg PO DAILY 04/05/24 02/08/25 allopurinoL 1 tab PO DAILY 04/05/24 02/08/25 Previous Rx's Medication Instructions Recorded Clopidogrel [Plavix] 75 mg PO DAILY 30 Days #30 tab 06/17/21 Diltiazem Cd [Cardizem CD] 240 mg PO DAILY 30 Days #30 06/17/21 Allergies Allergy/AdvReac Type Severity Reaction Status Date / Time cyclobenzaprine Allergy Unknown Verified 02/08/25 07:49 [From Flexeril] Fish Containing Products Allergy Swelling Verified 02/08/25 07:49 [Fish] hydralazine Allergy Unknown Verified 02/08/25 07:49 niacin Allergy Unknown Verified 02/08/25 07:49 shellfish derived [Shellfish] Allergy Swelling Verified 02/08/25 07:49 simvastatin Allergy Unknown Verified 02/08/25 07:49 Review of Systems ROS Statement: Those systems with pertinent positive or pertinent negative responses have been documented in the HPI. ROS Other: All systems not noted in ROS Statement are negative. Past Medical History Past Medical History: Cancer, Hyperlipidemia, Hypertension, Myocardial Infarction ([place]), Pneumonia, Renal Disease, Seizure Disorder Additional Past Medical History / Comment(s): kidney ca, last seizure 1 yr ago Last Myocardial Infarction Date:: unsure History of Any Multi-Drug Resistant Organisms: None Reported Past Surgical History: Back Surgery, Cholecystectomy, Coronary Bypass/CABG, H eart Catheterization With Stent, Orthopedic Surgery Additional Past Surgical History / Comment(s): rt kidney removed, [address] aorta "replacement" cataract removal (bil0 Past Anesthesia/Blood Transfusion Reactions: No Reported Reaction Date of Last Stent Placement:: unsure Past Psychological History: No Psychological Hx Reported Smoking Status: Former smoker Past Alcohol Use History: None Reported Past Drug Use History: None Reported - Past Family History Daughter(s) Family Medical History: Cancer Additional Family Medical History / Comment(s): leukiemia other daughter cervialc Son(s) Family Medical History: Cancer Additional Family Medical History / Comment(s): lung kidney Mother Family Medical History: Cancer Father Family Medical History: Myocardial Infarction ([place]) Brother(s) Family Medical History: Myocardial Infarction ([place]) General Exam Limitations: no limitations ENT exam: Present: normal exam, mucous membranes moist Neck exam: Present: normal inspection. Absent: tenderness, meningismus, lymphadenopathy Respiratory exam: Present: normal lung sounds bilaterally, wheezes, rhonchi. Absent: respiratory distress, rales, stridor Cardiovascular Exam: Present: regular rate, normal rhythm, normal heart sounds. Absent: systolic murmur, diastolic murmur, rubs, gallop, clicks GI/Abdominal exam: Present: soft, normal bowel sounds. Absent: distended, tenderness, guarding, rebound, rigid Extremities exam: Present: normal inspection, full ROM, normal capillary refill, other (bilateral LE edema). Absent: tenderness, pedal edema, joint swelling, calf tenderness Back exam: Present: normal inspection. Absent: CVA tenderness (R), CVA tenderness (L) Skin exam: Present: warm, dry, intact, normal color. Absent: rash Course Vital Signs 03/10/25 03/10/25 03/10/25 06:37 07:30 08:12 Temperature 100.1 F H Pulse Rate 60 60 60 Respiratory 18 21 Rate Blood Pressure 162/71 148/64 O2 Sat by Pulse 96 100 Oximetry 03/10/25 08:41 Temperature 98.2 F Pulse Rate 64 Respiratory 18 Rate Blood Pressure O2 Sat by Pulse 99 Oximetry Medical Decision Making - Medical Decision Making Was pt. sent in by a medical professional or institution (Dr. PA, TRAILER BODY ASSEMBLER, urgent care, hospital, or long-term...) When possible be specific @ -No Did you speak to anyone other than the patient for history (EMS, parent, family, police, friend...)? What history was obtained from this source @ -No Did you review nursing and triage notes (agree or disagree)? Why? @ -I reviewed and agree with nursing and triage notes Were old charts reviewed (outside hosp., previous admission, EMS record, old EKG, old radiological studies, urgent care reports/EKG's, long-term records)? Report findings @ -Patient's laboratory testing that was completed at [facility] revealed a hemoglobin of 7.5, high sensitive troponin of 63, BUN of 41, creatinine of 3.25 Differential Diagnosis (chest pain, altered mental status, abdominal pain women, abdominal pain men, vaginal bleeding, weakness, fever, dyspnea, syncope, headache, dizziness, GI bleed, back pain, seizure, CVA, palpatations, mental health, musculoskeletal)? @ -Differential Chest Pain: Stable Angina, Unstable Angina, STEMI, NSTEMI Aortic Dissection, Pneumothorax, Musculoskeletal, Esophageal Spasm GERD, Cholecystitis, Pancreatitis, Zoster, this is not meant to be an all-inclusive list. EKG interpreted by me (3pts min.). @ -Completed at 640 electronic atrial pacemaker with a ventricular to 65, [place] interval 197, QRS 108, QT 432, QTc 443. X-rays interpreted by me (1pt min.). @ -None done CT interpreted by me (1pt min.). @ -None done U/S interpreted by me (1pt. min.). @ -None done What testing was considered but not performed or refused? (CT, X-rays, U/S, labs)? Why? @ -None What meds were considered but not given or refused? Why? @ -None Did you discuss the management of the patient with other professionals (professionals i.e. , PA, TRAILER BODY ASSEMBLER, lab, RT, psych nurse, social work instructor, vice president of product marketing, teacher, dog license officer supervisor, case monitor)? Give summary @ -Spoke with admitting physician, Dr. Blair, was agreed to admit the patient for ACS. Was smoking cessation discussed for >3mins.? @ -No Was critical care preformed (if so, how long)? @ -No Were there social determinants of health that impacted care today? How? (Homelessness, low income, unemployed, alcoholism, drug addiction, transportation, low edu. Level, literacy, decrease access to med. care, senior living, rehab)? @ -No Was there de-escalation of care discussed even if they declined (Discuss DNR or withdrawal of care, Hospice)? DNR status @ -No What co-morbidities impacted this encounter? (DM, HTN, Smoking, COPD, CAD, Cancer, CVA, ARF, Chemo, Hep., AIDS, mental health diagnosis, sleep apnea, morbid obesity)? @ -None Was patient admitted / discharged? Hospital course, mention meds given and route, prescriptions, significant lab abnormalities, going to OR and other pertinent info. @ -Admitted. 80-year-old male presenting to emergency department as a transfer for ACS and elevated troponins. Patient is febrile on arrival with a temperature of 100.1. He is provided with Tylenol and Rocephin after blood cultures have been obtained with concern for pneumonia due to wheezing, productive cough and adventitious lung sounds bilaterally. Patient's EKG is in sinus rhythm that is a paced rhythm. Hemoglobin of 7.5, elevated troponin at 0.066, BNP at 2360. Patient is admitted to internal medicine with cardiology and nephrology on consult. Case discussed with my attending Dr. Cho. Admitted to [facility]. Patient is not provided with 30 mL/cc fluid bolus as he is in end- stage renal disease patient on peritoneal dialysis and received fluids at outside ER prior to arrival Undiagnosed new problem with uncertain prognosis? @ -No Drug Therapy requiring intensive monitoring for toxicity (Heparin, Nitro, Insulin, Cardizem)? @ -No Were any procedures done? @ -No Diagnosis/symptom? @ -ACS, pneumonia, sepsis Acute, or Chronic, or Acute on Chronic? @ -acute Uncomplicated (without systemic symptoms) or Complicated (systemic symptoms)? @ -complicated Side effects of treatment? @ -No Exacerbation, Progression, or Severe Exacerbation? @ -No Poses a threat to life or bodily function? How? (Chest pain, [place], [place], pneumonia, PE, COPD, DKA, ARF, appy, cholecystitis, CVA, Diverticulitis, Homicidal, Suicidal, threat to staff... and all critical care pts) @ -Yes, can lead to end organ system dysfunction and potential . - Lab Data Result diagrams: 03/10/25 07:26 03/10/25 07:26 Lab Results 03/10/25 03/10/25 03/10/25 Range/Units 07:26 07:26 07:26 WBC 9.07 (4.50-10.00) 10*3/uL RBC 2.40 L (4.40-5.60) 10*6/uL Hgb 7.5 L D (13.0-17.0) g/dL Hct 23.4 L (39.6-50.0) % MCV 97.5 H (80.0-97.0) fL MCH 31.3 (27.0-32.0) pg MCHC 32.1 (32.0-37.0) g/dL Plt Count 173 (140-440) 10*3/uL MPV 9.9 (9.5-12.2) fL Immature Gran % (Auto) 0.3 % Neutrophils % 79.8 % Lymphocytes % 12.7 % Monocytes % 5.5 % Eosinophils % 1.5 % Basophils % 0.2 % Immature Gran # 0.03 (0.00-0.04) 10*3/uL Neutrophils # 7.23 (1.80-7.70) 10*3/uL Lymphocytes # 1.15 (0.90-5.00) 10*3/uL Monocytes # 0.50 (0.20-1.00) 10*3/uL Eosinophils # 0.14 (0.04-0.35) 10*3/uL Basophils # 0.02 (0.00-0.10) 10*3/uL PT 10.9 (10.0-12.5) sec INR 1.0 (<1.2) APTT 40.1 H (22.0-30.0) sec Sodium 136 L (137-145) mmol/L Potassium 3.9 (3.5-5.1) mmol/L Chloride 106 (98-107) mmol/L Carbon Dioxide 23 (22-30) mmol/L Anion Gap 7 mmol/L BUN 44 H (9-20) mg/dL Creatinine 3.00 H (0.66-1.25) mg/dL Est GFR (CKD-EPI)AfAm 22 (>60 ml/min/1.73 sqM) Est GFR (CKD-EPI)NonAf 19 (>60 ml/min/1.73 sqM) Glucose 109 H (74-99) mg/dL Plasma Lactic Acid [place] (0.7-2.0) mmol/L Calcium 9.1 (8.4-10.2) mg/dL Phosphorus 3.6 (2.5-4.5) mg/dL Magnesium 2.4 H (1.6-2.3) mg/dL Total Bilirubin 0.3 (0.2-1.3) mg/dL AST 26 (17-59) U/L ALT 19 (4-49) U/L Alkaline Phosphatase 68 (38-126) U/L Troponin I (0.000-0.034) ng/mL NT-Pro-B Natriuret Pep 2360 pg/mL Total Protein 5.6 L (6.3-8.2) g/dL Albumin 3.4 L (3.5-5.0) g/dL Lipase 391 H (23-300) U/L Blood Type Recheck Bld Type Recheck Status 03/10/25 03/10/25 03/10/25 Range/Units 07:26 07:26 07:41 WBC (4.50-10.00) 10*3/uL RBC (4.40-5.60) 10*6/uL Hgb (13.0-17.0) g/dL Hct (39.6-50.0) % MCV (80.0-97.0) fL MCH (27.0-32.0) pg MCHC (32.0-37.0) g/dL Plt Count (140-440) 10*3/uL MPV (9.5-12.2) fL Immature Gran % (Auto) % Neutrophils % % Lymphocytes % % Monocytes % % Eosinophils % % Basophils % % Immature Gran # (0.00-0.04) 10*3/uL Neutrophils # (1.80-7.70) 10*3/uL Lymphocytes # (0.90-5.00) 10*3/uL Monocytes # (0.20-1.00) 10*3/uL Eosinophils # (0.04-0.35) 10*3/uL Basophils # (0.00-0.10) 10*3/uL PT (10.0-12.5) sec INR (<1.2) APTT (22.0-30.0) sec Sodium (137-145) mmol/L Potassium (3.5-5.1) mmol/L Chloride (98-107) mmol/L Carbon Dioxide (22-30) mmol/L Anion Gap mmol/L BUN (9-20) mg/dL Creatinine (0.66-1.25) mg/dL Est GFR (CKD-EPI)AfAm (>60 ml/min/1.73 sqM) Est GFR (CKD-EPI)NonAf (>60 ml/min/1.73 sqM) Glucose (74-99) mg/dL Plasma Lactic Acid [place] 0.6 L (0.7-2.0) mmol/L Calcium (8.4-10.2) mg/dL Phosphorus (2.5-4.5) mg/dL Magnesium (1.6-2.3) mg/dL Total Bilirubin (0.2-1.3) mg/dL AST (17-59) U/L ALT (4-49) U/L Alkaline Phosphatase (38-126) U/L Troponin I 0.066 H* (0.000-0.034) ng/mL NT-Pro-B Natriuret Pep pg/mL Total Protein (6.3-8.2) g/dL Albumin (3.5-5.0) g/dL Lipase (23-300) U/L Blood Type Recheck No Previous Record Bld Type Recheck Status CABO Indicated Disposition Clinical Impression: ACS (acute coronary syndrome), Pneumonia Disposition: ADMITTED IP TO [facility] Condition: Serious Referrals: Nella Solis MD [Primary Care Provider] - 1-2 days Decision to Admit Reason: Admit from EC Decision Date: 03/10/25 Decision Time: 09:02
[2025-03-10] MEDS: ACETAMINOPHEN TAB 500 MG TAB PO STA (07:37)
[2025-03-10] MEDS: cefTRIAXone IN SWFI 1,000 MG/10 ML SYRINGE IVP STA (07:37)
[2025-03-10 07:48] LABS: Basophils # (A) 0.02 10*3/uL (0.00-0.10); Basophils % (A) 0.2 %; Eosinophils # (A) 0.14 10*3/uL (0.04-0.35); Eosinophils % (A) 1.5 %; HCT 23.4 % (39.6-50.0); Lymphocytes # (A) 1.15 10*3/uL (0.90-5.00); Lymphocytes % (A) 12.7 %; MCH 31.3 pg (27.0-32.0); MCHC 32.1 g/dL (32.0-37.0); MCV 97.5 fL (80.0-97.0); Mean Platelet Volume 9.9 fL (9.5-12.2); Monocytes % (A) 5.5 %; Neutrophils # (A) 7.23 10*3/uL (1.80-7.70); Neutrophils % (A) 79.8 %; Platelet Count 173 10*3/uL (140-440); RDW 14.6 % (11.5-14.5); WBC 9.07 10*3/uL (4.50-10.00)
[2025-03-10 07:49] LABS: Partial Thromboplastin Time 40.1 sec (22.0-30.0); Prothrombin Time 10.9 sec (10.0-12.5)
[2025-03-10 07:53] LABS: ALT 19 U/L (4-49); AST 26 U/L (17-59); African American GFR (CKD) 22 (>60 ml/min/1.73 sqM); Albumin 3.4 g/dL (3.5-5.0); Alkaline Phosphatase 68 U/L (38-126); Anion Gap 7 mmol/L; Blood Urea Nitrogen 44 mg/dL (9-20); Calcium 9.1 mg/dL (8.4-10.2); Carbon Dioxide 23 mmol/L (22-30); Chloride 106 mmol/L (98-107); Glucose 109 mg/dL (74-99); Lipase 391 U/L (23-300); Magnesium 2.4 mg/dL (1.6-2.3); Non-African American GFR(CKD) 19 (>60 ml/min/1.73 sqM); Phosphorus 3.6 mg/dL (2.5-4.5); Potassium 3.9 mmol/L (3.5-5.1); Sodium 136 mmol/L (137-145); Total Bilirubin 0.3 mg/dL (0.2-1.3); Total Protein 5.6 g/dL (6.3-8.2)
[2025-03-10 07:56] LABS: HGB 7.5 g/dL (13.0-17.0)
[2025-03-10 08:01] LABS: NT-Pro-B-Type Natriuretic Pept 2360 pg/mL
[2025-03-10] MEDS: IPRATROPIUM-ALBUTEROL 3 ML NEB INHALATION STA (08:12)
[2025-03-10] MEDS ORDERED: NALOXONE 0.4 MG/ML 1 ML VIAL IV PRN (09:02)
[2025-03-10] MEDS ORDERED: ONDANSETRON 4 MG/2 ML VIAL IVP PRN (09:02)
[2025-03-10] MEDS ORDERED: ACETAMINOPHEN TAB 325 MG TAB PO PRN (09:02)
--- NOTE | 2025-03-10 10:17 | P.HPIM ---
History of Present Illness H&P Date: 03/10/25 Kelton Medley is a 80-year-old male patient who presented with concerns of increased shortness of breath and coughing. Patient has extensive medical history including coronary artery disease with CABG, CHF, end-stage renal dialysis with recent initiation of peritoneal dialysis, heart cath with stents, hyperlipidemia, pacemaker placement hypertension, seizure disorder and pneumonia. Lab work completed showing white blood cell 9.07, hemoglobin 7.5, sodium 136, creatinine 3.0, bun 44. Troponin 0.066, BNP 2360 and lipase 391. At this time patient will be admitted. Chest x-ray and procalcitonin levels ordered. Patient started on IV antibiotics with concerns of pneumonia. Cardiology consulted for elevated troponins. Nephrology and pulmonary services also consulted. Will order influenza and COVID swabs along with 2D echo. At this time patient is sitting comfortably in bed patient complaining about shortness of breath and cough. Patient denies chest pain patient denies nausea vomiting or diarrhea. Patient denies any urinary burning or frequency. Current vital signs temp 98.2, heart 66, respiratory rate 15, blood pressure 117/50 with pulse ox of 100% on 4 L nasal cannula Review of Systems Please refer to HPI otherwise unremarkable Past Medical History Past Medical History: Cancer, Hyperlipidemia, Hypertension, Myocardial Infarction ([place]), Pneumonia, Renal Disease, Seizure Disorder Additional Past Medical History / Comment(s): kidney ca, last seizure 1 yr ago Last Myocardial Infarction Date:: unsure History of Any Multi-Drug Resistant Organisms: None Reported Past Surgical History: Back Surgery, Cholecystectomy, Coronary Bypass/CABG, Heart Catheterization With Stent, Orthopedic Surgery Additional Past Surgical History / Comment(s): rt kidney removed, [address] aorta "replacement" cataract removal (bil0 Past Anesthesia/Blood Transfusion Reactions: No Reported Reaction Date of Last Stent Placement:: unsure Past Psychological History: No Psychological Hx Reported Smoking Status: Former smoker Past Alcohol Use History: None Reported Past Drug Use History: None Reported - Past Family History Daughter(s) Family Medical History: Cancer Additional Family Medical History / Comment(s): leukiemia other daughter cervialc Son(s) Family Medical History: Cancer Additional Family Medical History / Comment(s): lung kidney Mother Family Medical History: Cancer Father Family Medical History: Myocardial Infarction ([place]) Brother(s) Family Medical History: Myocardial Infarction ([place]) Medications and Allergies Home Medications Medication Instructions Recorded Confirmed Type Aspirin EC [Ecotrin Low Dose] 81 mg PO DAILY 06/14/21 02/08/25 History Cholecalciferol [Vitamin D3 (25 25 mcg PO DAILY 06/14/21 02/08/25 History Mcg = 1000 Iu)] HYDROcodone/APAP 7.5-325MG [[place] 1 tab PO Q6H PRN 06/14/21 02/08/25 History 7.5-325] Magnesium 200 mg PO BID 06/14/21 02/08/25 History Nitroglycerin Sl Tabs [Nitrostat] 0.4 mg SL Q5M PRN 06/14/21 02/08/25 History Rosuvastatin Calcium [Crestor] 40 mg PO DAILY 06/14/21 02/08/25 History Sotalol [Betapace] 120 mg PO BID 06/14/21 02/08/25 History calcitrioL 0.25 mcg PO Q7D 06/14/21 02/08/25 History carBAMazepine [TEGretol] 200 mg PO BID 06/14/21 02/08/25 History levETIRAcetam [Keppra] 375 mg PO Q48H 06/14/21 02/08/25 History Clopidogrel [Plavix] 75 mg PO DAILY 30 Days #30 tab 06/17/21 02/08/25 Rx Diltiazem Cd [Cardizem CD] 240 mg PO DAILY 30 Days #30 06/17/21 02/08/25 Rx ALPRAZolam [Xanax] 1 tab PO DIRECTED PRN 04/05/24 02/08/25 History Metoprolol Succinate (ER) [Toprol 1 tab PO DAILY 04/05/24 02/08/25 History XL] Omeprazole [PriLOSEC] 1 tab PO DAILY 04/05/24 02/08/25 History Spironolactone 25 mg PO DAILY 04/05/24 02/08/25 History allopurinoL 1 tab PO DAILY 04/05/24 02/08/25 History Allergies Allergy/AdvReac Type Severity Reaction Status Date / Time cyclobenzaprine Allergy Unknown Verified 02/08/25 07:49 [From Flexeril] Fish Containing Products Allergy Swelling Verified 02/08/25 07:49 [Fish] hydralazine Allergy Unknown Verified 02/08/25 07:49 niacin Allergy Unknown Verified 02/08/25 07:49 shellfish derived [Shellfish] Allergy Swelling Verified 02/08/25 07:49 simvastatin Allergy Unknown Verified 02/08/25 07:49 Physical Exam Vitals: Vital Signs Temp Pulse Resp BP Pulse Ox 03/10/25 10:06 68 15 128/53 100 03/10/25 09:28 66 15 117/50 98 03/10/25 08:41 98.2 F 64 18 99 03/10/25 08:22 65 03/10/25 08:12 60 03/10/25 07:30 60 21 148/64 100 03/10/25 06:37 100.1 F H 60 18 162/71 96 Intake and Output 03/09/25 03/10/25 03/10/25 22:59 06:59 14:59 Other: Weight 83.007 kg Head normocephalic Neck supple Lungs diminished bilaterally with expiratory wheezing Heart regular rate and rhythm S1-S2, no rub or gallop Abdomen is soft nontender nondistended positive bowel sounds no hepatosplenomegaly Extremities no edema Neuro alert and orientated to 3 Results CBC & Chem 7: 03/10/25 07:26 03/10/25 07:26 Labs: Abnormal Lab Results - Last 24 Hours (Table) 03/10/25 03/10/25 03/10/25 Range/Units 07:26 07:26 07:26 RBC 2.40 L (4.40-5.60) 10*6/uL Hgb 7.5 L D (13.0-17.0) g/dL Hct 23.4 L (39.6-50.0) % MCV 97.5 H (80.0-97.0) fL APTT 40.1 H (22.0-30.0) sec Sodium 136 L (137-145) mmol/L BUN 44 H (9-20) mg/dL Creatinine 3.00 H (0.66-1.25) mg/dL Glucose 109 H (74-99) mg/dL Plasma Lactic Acid [place] (0.7-2.0) mmol/L Magnesium 2.4 H (1.6-2.3) mg/dL Troponin I (0.000-0.034) ng/mL Total Protein 5.6 L (6.3-8.2) g/dL Albumin 3.4 L (3.5-5.0) g/dL Lipase 391 H (23-300) U/L 03/10/25 03/10/25 Range/Units 07:26 07:26 RBC (4.40-5.60) 10*6/uL Hgb (13.0-17.0) g/dL Hct (39.6-50.0) % MCV (80.0-97.0) fL APTT (22.0-30.0) sec Sodium (137-145) mmol/L BUN (9-20) mg/dL Creatinine (0.66-1.25) mg/dL Glucose (74-99) mg/dL Plasma Lactic Acid [place] 0.6 L (0.7-2.0) mmol/L Magnesium (1.6-2.3) mg/dL Troponin I 0.066 H* (0.000-0.034) ng/mL Total Protein (6.3-8.2) g/dL Albumin (3.5-5.0) g/dL Lipase (23-300) U/L Assessment and Plan Assessment: 1. Increase shortness of breath and congestion 2. Acute on chronic congestive heart failure 3. Elevated troponins 4. Concerns of possible pneumonia 5. End-stage renal disease maintained on peritoneal dialysis per patient's at bedside this has been recently started 6. History of cardiomyopathy 7. History of cardiac arrhythmia patient has pacemaker placement 8. History of severe coronary artery disease with previous CABG and multiple stent placement 9. History of kidney cancer status post right nephrectomy 10. History of hyperlipidemia 11. History of seizure disorder 12. History of essential hypertension 13. Anemia likely secondary to chronic kidney disease DVT prophylaxis SCDs (low hemoglobin), GI prophylaxis Protonix Nephrology, cardiology and pulmonary services consulted Chest x-ray, 2D echo and stool for occult blood ordered COVID-19 and influenza ordered Repeat labs ordered Time with Patient: Greater than 30 (Greater than 60% of the total time spent in counseling and coordination of care)
--- NOTE | 2025-03-10 11:13 | XR ---
EXAMINATION TYPE: XR chest 2V DATE OF EXAM: 03/10/2025 10:49 AM COMPARISON: Chest radiographs from 03/04/2025. CLINICAL INDICATION: Male, 80 years old with history of sob cough; H TECHNIQUE: XR chest 2V Frontal and lateral views of the chest. FINDINGS: Lungs/Pleura: T airspace opacities project over the spine here is no evidence of pleural effusion, fo eve consolidation, or pneumothorax. Pulmonary vascularity: Unremarkable. Heart/mediastinum: Cardiomediastinal silhouette is unremarkable. Two lead cardiac conduction device o verlying the left hemithorax with lead tips projecting over the right ventricle and right atrium. Musculoskeletal: No acute osseous pathology. IMPRESSION: Airspace opacities project over the spine lateral view correlate for pneumonia [facility] Cyril Dorado, , 03/10/2025 11:11 AM
[2025-03-10] MEDS: DIALYSIS (PERIT 2.5%) 2,000 ML 50 G/2,000 ML BAG INTRAPERIT SCH (13:16)
[2025-03-10] MEDS ORDERED: NITROGLYCERIN SL TABS 0.4 MG TAB SUBLINGUAL PRN (13:44)
[2025-03-10] MEDS: ASPIRIN 81 MG PO SCH (15:16)
[2025-03-10] MEDS: CLOPIDOGREL 75 MG TAB PO SCH (15:16)
[2025-03-10] MEDS: DILTIAZEM CD 180 MG CAP.ER.24H PO SCH (15:16)
[2025-03-10] MEDS: FUROSEMIDE 40 MG TAB PO SCH (15:16)
[2025-03-10] MEDS: MAGNESIUM OXIDE 400 MG TAB PO SCH (15:16)
[2025-03-10] MEDS: METOPROLOL SUCCINATE (ER) 25 MG TAB.ER.24H PO SCH (15:16)
[2025-03-10] MEDS: carBAMazepine 200 MG TAB PO SCH (15:16)
[2025-03-10] MEDS: allopurinoL 100 MG TAB PO SCH (15:16)
[2025-03-10] MEDS: HYDROcodone/APAP 10-325MG 1 EACH TAB PO PRN (15:49)
[2025-03-10 19:49] LABS: Appearance,Urine Clear (Clear); Bilirubin,Urine Negative (Negative); Blood,Urine Trace (Negative); Budding Yeast,Urine Rare /hpf; Calcium Oxalate Crystals,Urine Rare /hpf; Color,Urine Colorless; Glucose,Urine (UA) 2+ (Negative); Hyaline Casts,Urine 1 /lpf (0-2); Ketones,Urine Negative (Negative); Leukocyte Esterase,Urine Negative (Negative); Mucus,Urine Rare /hpf; Nitrite,Urine Negative (Negative); Protein,Urine 1+ (Negative); RBC,Urine 4 /hpf (0-5); Specific Gravity,Urine 1.016 (1.001-1.035); Squamous Epithelial Cell,Urine <1 /hpf (0-4); Urobilinogen,Urine <2.0 mg/dL (<2.0); WBC,Urine 1 /hpf (0-5)
--- NOTE | 2025-03-10 19:49 | P.NPCON ---
History of Present Illness - Reason for Consult Consult date: 03/10/25 end stage renal disease - Chief Complaint shortness of breath - History of Present Illness 80-year-old male patient with PMHx of coronary artery disease s/p PCI and CABG, CHF s/p Pace maker, end-stage renal dialysis with recent initiation of peritoneal dialysis, hyperlipidemia, hypertension, seizure disorder and pneumonia. presented to ED with worsening shortness of breath and cough. he is admitted for management of pneumonia, concern for fluid overload. nephrology is consulted to resume PD. patient seen today, feeling weak , no issues with PD , he started CAPD with 1.6 L 4 exchanges of 2.5% dianeal, he has no issues so far, no changes in urination. he is currently on 2 L o2 down from 4 L. Past Medical History Past Medical History: Cancer, Hyperlipidemia, Hypertension, Myocardial Infarction ([place]), Pneumonia, Renal Disease, Seizure Disorder Additional Past Medical History / Comment(s): kidney ca, last seizure 1 yr ago Last Myocardial Infarction Date:: unsure History of Any Multi-Drug Resistant Organisms: None Reported Past Surgical History: Back Surgery, Cholecystectomy, Coronary Bypass/CABG, Heart Catheterization With Stent, Orthopedic Surgery Additional Past Surgical History / Comment(s): rt kidney removed, [address] aorta "replacement" cataract removal (bil0 Past Anesthesia/Blood Transfusion Reactions: No Reported Reaction Date of Last Stent Placement:: unsure Past Psychological History: No Psychological Hx Reported Smoking Status: Former smoker Past Alcohol Use History: None Reported Past Drug Use History: None Reported - Past Family History Daughter(s) Family Medical History: Cancer Additional Family Medical History / Comment(s): leukiemia other daughter cervi alc Son(s) Family Medical History: Cancer Additional Family Medical History / Comment(s): lung kidney Mother Family Medical History: Cancer Father Family Medical History: Myocardial Infarction ([place]) Brother(s) Family Medical History: Myocardial Infarction ([place]) Medications and Allergies Home Medications Medication Instructions Recorded Confirmed Type Aspirin EC [Ecotrin Low Dose] 81 mg PO DAILY 06/14/21 03/10/25 History Cholecalciferol [Vitamin D3 (25 50 mcg PO DAILY 06/14/21 03/10/25 History Mcg = 1000 Iu)] Magnesium 200 mg PO DAILY 06/14/21 03/10/25 History Nitroglycerin Sl Tabs [Nitrostat] 0.4 mg SL Q5M PRN 06/14/21 03/10/25 History Rosuvastatin Calcium [Crestor] 40 mg PO DAILY 06/14/21 03/10/25 History Sotalol [Betapace] 120 mg PO BID 06/14/21 03/10/25 History carBAMazepine [TEGretol] 200 mg PO BID 06/14/21 03/10/25 History levETIRAcetam [Keppra] 375 mg PO Q48H 06/14/21 03/10/25 History Clopidogrel [Plavix] 75 mg PO DAILY 30 Days #30 tab 06/17/21 03/10/25 Rx ALPRAZolam [Xanax] 0.25 mg PO BID PRN 04/05/24 03/10/25 History Metoprolol Succinate (ER) [Toprol 25 mg PO DAILY 04/05/24 03/10/25 History XL] Omeprazole [PriLOSEC] 20 mg PO DAILY 04/05/24 03/10/25 History Spironolactone 25 mg PO HS 04/05/24 03/10/25 History allopurinoL 100 mg PO DAILY 04/05/24 03/10/25 History Cyanocobalamin (Vitamin B-12) 1,000 mcg PO DAILY 03/10/25 03/10/25 History [Vitamin B-12] Diltiazem Cd [Cardizem CD] 180 mg PO DAILY 03/10/25 03/10/25 History Ezetimibe [Zetia] 10 mg PO HS 03/10/25 03/10/25 History Folic Acid 1 mg PO DAILY 03/10/25 03/10/25 History HYDROcodone/APAP 10-325MG [[place] 1 tab PO Q6H PRN 03/10/25 03/10/25 History 10-325] Isosorbide Mononitrate ER [Imdur] 30 mg PO DAILY 03/10/25 03/10/25 History Lactulose 20 gm PO DAILY PRN 03/10/25 03/10/25 History Allergies Allergy/AdvReac Type Severity Reaction Status Date / Time cyclobenzaprine Allergy Unknown Verified 03/10/25 10:45 [From Flexeril] Fish Containing Products Allergy Swelling Verified 03/10/25 10:45 [Fish] hydralazine Allergy Unknown Verified 03/10/25 10:45 niacin Allergy Unknown Verified 03/10/25 10:45 shellfish derived [Shellfish] Allergy Swelling Verified 03/10/25 10:45 simvastatin Allergy Unknown Verified 03/10/25 10:45 Physical Exam Vitals: Vital Signs Temp Pulse Resp BP Pulse Ox 03/10/25 10:06 68 15 128/53 100 03/10/25 09:28 66 15 117/50 98 03/10/25 08:41 98.2 F 64 18 99 03/10/25 08:22 65 03/10/25 08:12 60 03/10/25 07:30 60 21 148/64 100 03/10/25 06:37 100.1 F H 60 18 162/71 96 Intake and Output 03/09/25 03/10/25 03/10/25 22:59 06:59 14:59 Other: Weight 83.007 kg General: No acute distress. HEENT: Head exam is unremarkable. LUNGS: No audible rhonchi or wheezes. HEART: Rate and Rhythm are regular. ABDOMEN and Genitourinary: soft, non distended, nontender. PD catheter EXTREMITITES: 1+ LE edema Results - Lab Results Most recent lab results Calcium 9.1 mg/dL (8.4-10.2) 03/10/25 07:26 Phosphorus 3.6 mg/dL (2.5-4.5) 03/10/25 07:26 Magnesium 2.4 mg/dL (1.6-2.3) H 03/10/25 07:26 03/10/25 07:26 03/10/25 07:26 Assessment and Plan Assessment: 1. ESRD on peritoneal dialysis , started February 2025, CAPD 1.6 L 4X 2.5% 2. Shortness of breath secondary to pneumonia, started on IV antibiotics, pulmonary consulted 3. History of CAD s/p CABG 4. CHF , concern for fluid overload 5. Acute on chronic anemia, rulee out iron deficiency Plan: 1. start CAPD 2L 4X 2.5% 2. start PO lasix 40 mg BID , he is making urine , monitor urine output 3. IV antibiotics 4. check iron panel 5. consider 2D echo Thank you for consulting nephrology, will continue to follow Discussed with primary team and RN.
[2025-03-10] MEDS: SOTALOL 120 MG TAB PO SCH (21:03)
[2025-03-10] MEDS: SPIRONOLACTONE 25 MG TAB PO SCH (21:03)
[2025-03-10] MEDS: EZETIMIBE 10 MG TAB PO SCH (21:03)
[2025-03-11 00:13] LABS: % Iron Saturation 21.18 (15.00-50.00)
[2025-03-11 05:00] LABS: Basophils # (A) 0.02 10*3/uL (0.00-0.10); Basophils % (A) 0.2 %; Eosinophils # (A) 0.32 10*3/uL (0.04-0.35); Eosinophils % (A) 3.3 %; HCT 23.9 % (39.6-50.0); HGB 7.2 g/dL (13.0-17.0); Lymphocytes # (A) 1.72 10*3/uL (0.90-5.00); Lymphocytes % (A) 17.9 %; MCH 30.1 pg (27.0-32.0); MCHC 30.1 g/dL (32.0-37.0); Mean Platelet Volume 9.6 fL (9.5-12.2); Monocytes # (A) 0.66 10*3/uL (0.20-1.00); Monocytes % (A) 6.9 %; Neutrophils # (A) 6.83 10*3/uL (1.80-7.70); Neutrophils % (A) 71.2 %; Platelet Count 178 10*3/uL (140-440); RBC 2.39 10*6/uL (4.40-5.60); RDW 15.1 % (11.5-14.5)
[2025-03-11 05:14] LABS: ALT 17 U/L (4-49); AST 21 U/L (17-59); African American GFR (CKD) 18 (>60 ml/min/1.73 sqM); Albumin 3.3 g/dL (3.5-5.0); Alkaline Phosphatase 62 U/L (38-126); Anion Gap 6 mmol/L; Blood Urea Nitrogen 42 mg/dL (9-20); Carbon Dioxide 28 mmol/L (22-30); Chloride 101 mmol/L (98-107); Glucose 97 mg/dL (74-99); Non-African American GFR(CKD) 16 (>60 ml/min/1.73 sqM); Potassium 3.8 mmol/L (3.5-5.1); Sodium 135 mmol/L (137-145); Total Bilirubin 0.2 mg/dL (0.2-1.3); Total Protein 5.6 g/dL (6.3-8.2)
--- NOTE | 2025-03-11 06:27 | P.CNPUL ---
History of Present Illness Consult date: 03/11/25 Requesting physician: Jose Blair Reason for consult: pneumonia Chief complaint: Chest pain History of present illness: Patient is a 80-year-old male with past medical history significant for hyp ertension, hyperlipidemia, coronary artery disease with previous CABG, end-stage renal disease on peritoneal dialysis, seizure disorder, among other things. Patient was transferred from [facility] [place] with concerns of ACS and elevated troponins. Reporting chest pain. On arrival to the ED, was found to be febrile with a temperature of 100.1 F. Chest x-ray showing airspace opacities projecting over the spine on lateral view, concerning for pneumonia. Pacemaker generator in place over the left chest. EKG: Atrially paced rhythm with a rate of [address] elevations. Labs including a CBC with a WBC count of 9, hemoglobin lower than baseline at 7.5 g/dL, platelets 173. CMP: Sodium 136, potassium 3.9, chloride 106, serum bicarb 23, BUN 44, creatinine 3, glucose 109. Lactic 0.6. LFTs not elevated. Magnesium 2.4. NT proBNP 2360. Troponins 0.066, 0.064, 0.062. Procalcitonin level 0.28. Influenza A/B negative. COVID negative. Patient currently being evaluated on the cardiac stepdown unit. He is resting comfortably on 2 L/min nasal cannula. Patient states she has been short of breath with a congested cough for over a month now. Cough is productive with bruno thick sputum. Denies sick contacts. Previously started on Rocephin in the ED. Currently, afebrile. Denies abdominal pain, change in amount or consistency of peritoneal drainage. His discharge rn is Dr. Wilson. Denies any chest pain, heart palpitations, syncopal events, orthopnea, lower extremity edema. Current most recent vital signs: Temperature 98.2 F, heart rate 60 bpm, blood pressure 148/77 mmHg, nontachypneic, SpO2 recorded 97% on 2 L/min nasal cannula. Review of Systems Constitutional: Reports chills, Reports fatigue, Reports fever, Denies poor appetite, Denies weight gain, Denies weight loss Ears, nose, mouth and throat: Denies headache, Denies nasal congestion, Denies nasal discharge, Denies sinus pain, Denies sinus pressure, Denies sore throat Cardiovascular: Reports chest pain, Denies leg edema, Denies lightheadedness, Denies orthopnea, Denies palpitations, Denies paroxysmal nocturnal dyspnea, Denies syncope Respiratory: Reports congestion, Reports cough with sputum, Denies hemoptysis, Denies home oxygen, Denies wheezing Gastrointestinal: Denies abdominal pain, Denies diarrhea, Denies hematemesis, Denies nausea, Denies vomiting Genitourinary: Denies dysuria Musculoskeletal: Denies limitation of motion Integumentary: Denies rash Neurological: Denies seizures, Denies syncope Psychiatric: Denies anxiety, Denies depression Past Medical History Past Medical History: Cancer, Hyperlipidemia, Hypertension, Myocardial Infarction ([place]), Pneumonia, Renal Disease, Seizure Disorder Additional Past Medical History / Comment(s): kidney ca, last seizure 1 yr ago Last Myocardial Infarction Date:: unsure History of Any Multi-Drug Resistant Organisms: None Reported Past Surgical History: Back Surgery, Cholecystectomy, Coronary Bypass/CABG, Heart Catheterization With Stent, Orthopedic Surgery Additional Past Surgical History / Comment(s): rt kidney removed, [address] aorta "replacement" cataract removal (bil0 Past Anesthesia/Blood Transfusion Reactions: No Reported Reaction Date of Last Stent Placement:: unsure Past Psychological History: No Psychological Hx Reported Smoking Status: Former smoker Past Alcohol Use History: None Reported Past Drug Use History: None Reported - Past Family History Daughter(s) Family Medical History: Cancer Additional Family Medical History / Comment(s): leukiemia other daughter cervialc Son(s) Family Medical History: Cancer Additional Family Medical History / Comment(s): lung kidney Mother Family Medical History: Cancer Father Family Medical History: Myocardial Infarction ([place]) Brother(s) Family Medical History: Myocardial Infarction ([place]) Medications and Allergies Home Medications Medication Instructions Recorded Confirmed Type Aspirin EC [Ecotrin Low Dose] 81 mg PO DAILY 06/14/21 03/10/25 History Cholecalciferol [Vitamin D3 (25 50 mcg PO DAILY 06/14/21 03/10/25 History Mcg = 1000 Iu)] Magnesium 200 mg PO DAILY 06/14/21 03/10/25 History Nitroglycerin Sl Tabs [Nitrostat] 0.4 mg SL Q5M PRN 06/14/21 03/10/25 History Rosuvastatin Calcium [Crestor] 40 mg PO DAILY 06/14/21 03/10/25 History Sotalol [Betapace] 120 mg PO BID 06/14/21 03/10/25 History carBAMazepine [TEGretol] 200 mg PO BID 06/14/21 03/10/25 History levETIRAcetam [Keppra] 375 mg PO Q48H 06/14/21 03/10/25 History Clopidogrel [Plavix] 75 mg PO DAILY 30 Days #30 tab 06/17/21 03/10/25 Rx ALPRAZolam [Xanax] 0.25 mg PO BID PRN 04/05/24 03/10/25 History Metoprolol Succinate (ER) [Toprol 25 mg PO DAILY 04/05/24 03/10/25 History XL] Omeprazole [PriLOSEC] 20 mg PO DAILY 04/05/24 03/10/25 History Spironolactone 25 mg PO HS 04/05/24 03/10/25 History allopurinoL 100 mg PO DAILY 04/05/24 03/10/25 History Cyanocobalamin (Vitamin B-12) 1,000 mcg PO DAILY 03/10/25 03/10/25 History [Vitamin B-12] Diltiazem Cd [Cardizem CD] 180 mg PO DAILY 03/10/25 03/10/25 History Ezetimibe [Zetia] 10 mg PO HS 03/10/25 03/10/25 History Folic Acid 1 mg PO DAILY 03/10/25 03/10/25 History HYDROcodone/APAP 10-325MG [[place] 1 tab PO Q6H PRN 03/10/25 03/10/25 History 10-325] Isosorbide Mononitrate ER [Imdur] 30 mg PO DAILY 03/10/25 03/10/25 History Lactulose 20 gm PO DAILY PRN 03/10/25 03/10/25 History Allergies Allergy/AdvReac Type Severity Reaction Status Date / Time cyclobenzaprine Allergy Unknown Verified 03/10/25 10:45 [From Flexeril] Fish Containing Products Allergy Swelling Verified 03/10/25 10:45 [Fish] hydralazine Allergy Unknown Verified 03/10/25 10:45 niacin Allergy Unknown Verified 03/10/25 10:45 shellfish derived [Shellfish] Allergy Swelling Verified 03/10/25 10:45 simvastatin Allergy Unknown Verified 03/10/25 10:45 Physical Exam Vitals: Vital Signs Temp Pulse Pulse Resp BP BP Pulse Ox 03/10/25 23:54 98.2 F 60 18 148/77 97 03/10/25 20:00 97.7 F 63 16 129/63 96 03/10/25 18:08 98.5 F 60 18 118/57 96 03/10/25 16:00 97.8 F 65 16 165/79 96 03/10/25 14:00 65 18 03/10/25 13:27 98.0 F 60 16 148/78 98 03/10/25 11:28 97.5 F L 60 18 123/70 98 03/10/25 10:06 68 15 128/53 100 03/10/25 09:28 97.8 F 66 60 18 117/50 165/79 97 03/10/25 08:41 98.2 F 64 18 99 03/10/25 08:22 65 03/10/25 08:12 60 03/10/25 07:30 60 21 148/64 100 03/10/25 06:37 100.1 F H 60 18 162/71 96 Intake and Output 03/10/25 03/10/25 03/11/25 14:59 22:59 06:59 Intake Total 10 10 Output Total 400 250 Balance -390 -240 Intake: IV 10 10 Invasive Line 1 10 10 Output: Urine 400 250 Other: # Voids 1 1 Weight 83.007 kg GENERAL EXAM: Alert, 80-year-old male, resting comfortably on 2 L/min nasal cannula,, comfortable in no apparent distress. HEAD: Normocephalic and atraumatic EYES: Normal reaction of pupils, equal size. NOSE: Clear with pink turbinates. THROAT: No erythema or exudates. NECK: No masses, no JVD. CHEST: No chest wall deformity. LUNGS: Equal air entry with scattered rhonchi heard bilaterally.. No conversational dyspnea or accessory muscle use.. CVS: S1 and S2 normal with no audible murmur, regular rhythm. No extra heart sounds ABDOMEN: PD catheter secured. Abdomen is distended but nontender. No organomegaly. SPINE: No scoliosis or deformity SKIN: No rashes CENTRAL NERVOUS SYSTEM: No focal deficits, tone is normal in all 4 extremities. EXTREMITIES: There is no peripheral edema, clubbing, or cyanosis. Peripheral pulses are intact. Results - Laboratory Findings CBC and BMP: 03/11/25 04:28 03/11/25 04:28 PT/INR, D-dimer PT 10.9 sec (10.0-12.5) 03/10/25 07:26 INR 1.0 (<1.2) 03/10/25 07:26 Abnormal lab findings: Abnormal Labs 03/10/25 03/10/25 03/10/25 07:26 07:26 07:26 RBC 2.40 L Hgb 7.5 L D Hct 23.4 L MCV 97.5 H APTT 40.1 H Sodium 136 L BUN 44 H Creatinine 3.00 H Glucose 109 H Plasma Lactic Acid [place] Magnesium 2.4 H Iron Transferrin Troponin I Total Protein 5.6 L Albumin 3.4 L Lipase 391 H Urine Protein Urine Glucose (UA) Urine Blood Calcium Oxalate Crystal Urine Mucus Urine Yeast (Budding) 03/10/25 03/10/25 03/10/25 07:26 07:26 11:48 RBC Hgb Hct MCV APTT Sodium BUN Creatinine Glucose Plasma Lactic Acid [place] 0.6 L Magnesium Iron Transferrin Troponin I 0.066 H* 0.064 H* Total Protein Albumin Lipase Urine Protein Urine Glucose (UA) Urine Blood Calcium Oxalate Crystal Urine Mucus Urine Yeast (Budding) 03/10/25 03/10/25 03/10/25 11:48 15: 15:50 RBC Hgb Hct MCV APTT Sodium BUN Creatinine Glucose Plasma Lactic Acid [place] Magnesium Iron 54 L Transferrin 182.0 L Troponin I 0.062 H* Total Protein Albumin Lipase Urine Protein 1+ H Urine Glucose (UA) 2+ H Urine Blood Trace H Calcium Oxalate Crystal Rare H Urine Mucus Rare H Urine Yeast (Budding) Rare H - Diagnostic Findings Chest x-ray: image reviewed Assessment and Plan Assessment: Acute hypoxemic respiratory failure, currently on 2 L/min nasal cannula, chest x-ray remarkable for airspace opacity projecting over the spine on lateral view, concerning for possible community-acquired pneumonia or atelectasis Elevated troponins, flat Anemia, hemoglobin 7.5 g/dL, which is lower than baseline Hypertension History of hyperlipidemia History of coronary artery disease with previous CABG History of implanted pacemaker End-stage renal disease, recently started on peritoneal dialysis Jan, 2025 History of renal cancer and right-sided nephrectomy History of seizure disorder Plan: Currently on 2 L/min nasal cannula, wean as tolerated Continue empiric antibiotics Procalcitonin level 0.28 Viral screening for influenza A/B and COVID negative Obtain sputum and blood cultures and body fluid culture Nephrology consulted for management of patient's peritoneal dialysis Check fecal occult Cardiology consulted We will also continue to follow I have personally seen and examined the patient, performed the documentation and the assessment and plan as written. Number of minutes spent on the visit:20 This dictation was produced using [employer] dictation software please excuse grammatical errors Time with Patient: Greater than 30
[2025-03-11] MEDS: PANTOPRAZOLE 40 MG TABLET PO SCH (06:29)
[2025-03-11] MEDS: LACTULOSE 20 GM/30 ML CUP PO PRN (06:29)
[2025-03-11] MEDS ORDERED: NON FORMULARY DRUG (Omeprazole 20 MG Capsule.Dr) PO SCH (09:00)
[2025-03-11] MEDS: CYANOCOBALAMIN 500 MCG TAB PO SCH (09:03)
[2025-03-11] MEDS: ISOSORBIDE MONONITRATE ER 30 MG TAB.ER.24H PO SCH (09:03)
[2025-03-11] MEDS: ATORVASTATIN 80 MG TAB PO SCH (09:03)
[2025-03-11] MEDS: guaiFENesin 600 MG TABLET.ER PO SCH (09:03)
[2025-03-11] MEDS: CHOLECALCIFEROL 25 MCG (1000 IU) TABLET PO SCH (09:03)
[2025-03-11] MEDS: FOLIC ACID 1 MG TAB PO SCH (09:03)
[2025-03-11] MEDS: AZITHROMYCIN 500 MG in SODIUM CHLORIDE 0.9% 250 ML IVPB SCH (09:16)
--- NOTE | 2025-03-11 10:33 | P.PN ---
Subjective Patient is seen in follow-up for end-stage renal disease. He is maintained on peritoneal dialysis. Cough improved. Now on room air. Denies chest pain or shortness of breath. Vital signs are stable. General: No acute distress. HEENT: Head exam is unremarkable. LUNGS: No audible rhonchi or wheezes. HEART: Rate and Rhythm are regular. ABDOMEN: Nontender. EXTREMITITES: No edema. Objective - Vital Signs Vital signs: Vital Signs Temp 97.6 F 03/11/25 08:00 Pulse 59 L 03/11/25 08:00 Resp 16 03/11/25 08:00 BP 123/73 03/11/25 08:00 Pulse Ox 96 03/11/25 08:00 FiO2 Intake & Output 03/10/25 03/11/25 03/11/25 18:59 06:59 18:59 Intake Total 20 10 Output Total 400 250 300 Balance -400 -230 -290 Weight 83.007 kg 84.3 kg Intake: IV 20 10 Invasive Line 1 20 10 Output: Urine 400 250 300 Other: # Voids 1 1 - Labs CBC & Chem 7: 03/11/25 04:28 03/11/25 04:28 Labs: Abnormal Lab Results - Last 24 Hours (Table) 03/10/25 03/10/25 03/10/25 Range/Units 11:48 11:48 15:26 RBC (4.40-5.60) 10*6/uL Hgb (13.0-17.0) g/dL Hct (39.6-50.0) % MCV (80.0-97.0) fL MCHC (32.0-37.0) g/dL Immature Gran # (0.00-0.04) 10*3/uL Sodium (137-145) mmol/L BUN (9-20) mg/dL Creatinine (0.66-1.25) mg/dL Iron 54 L (65-175) UG/DL Transferrin 182.0 L (204.0-354.0) mg/dL Troponin I 0.064 H* 0.062 H* (0.000-0.034) ng/mL Total Protein (6.3-8.2) g/dL Albumin (3.5-5.0) g/dL Urine Protein (Negative) Urine Glucose (UA) (Negative) Urine Blood (Negative) Calcium Oxalate Crystal (None) /hpf Urine Mucus (None) /hpf Urine Yeast (Budding) (None) /hpf 03/10/25 03/11/25 03/11/25 Range/Units 15:50 04:28 04:28 RBC 2.39 L (4.40-5.60) 10*6/uL Hgb 7.2 L (13.0-17.0) g/dL Hct 23.9 L (39.6-50.0) % MCV 100.0 H (80.0-97.0) fL MCHC 30.1 L (32.0-37.0) g/dL Immature Gran # 0.05 H (0.00-0.04) 10*3/uL Sodium 135 L (137-145) mmol/L BUN 42 H (9-20) mg/dL Creatinine 3.45 H (0.66-1.25) mg/dL Iron (65-175) UG/DL Transferrin (204.0-354.0) mg/dL Troponin I (0.000-0.034) ng/mL Total Protein 5.6 L (6.3-8.2) g/dL Albumin 3.3 L (3.5-5.0) g/dL Urine Protein 1+ H (Negative) Urine Glucose (UA) 2+ H (Negative) Urine Blood Trace H (Negative) Calcium Oxalate Crystal Rare H (None) /hpf Urine Mucus Rare H (None) /hpf Urine Yeast (Budding) Rare H (None) /hpf Assessment and Plan Plan: Assessment: 1. End-stage renal disease maintained on peritoneal dialysis. 2. Pneumonia maintained on antibiotics. 3. Hypertension with chronic kidney disease. 4. Coronary disease status post CABG and multiple stents. 5. Anemia of chronic kidney disease. Plan: Maintain current PD exchanges. IV iron x 1 dose today. Add Aranesp. Maintain Lasix.
--- NOTE | 2025-03-11 10:57 | P.CRDCN ---
History of Present Illness Consult date: 03/11/25 Reason for Consult (text): ACS History of present illness: This is a 80-year-old male patient of Dr. Ferreira with past medical history of coronary artery disease status post CABG with SINGH to LAD and SVG to diagonal, SVG to OM, SVG to RCA, AAA status postsurgical repair, hypertension, dyslipidemia, permanent pacemaker, history of nephrectomy and end-stage renal disease on peritoneal dialysis, patient is also on sotalol for unknown reason. We have been asked to evaluate the patient for acute coronary syndrome. Patient states that he came into the hospital because he felt very antsy almost like he was having a seizure. He states he had pain all over his body including his chest and back arms and shoulders. He states he has had a cough with sputum production. He does use a nebulizer treatment at home. He does not have home oxygen. Blood pressure 136/76, heart rate 60, pulse ox 98% on 2 L nasal cannula. Temperature max 100.1. Patient has been started on IV antibiotics. He states he is feeling great right now. -EKG: Paced rhythm. -Chest x-ray: Airspace opacities project over the spine lateral view correlate for pneumonia. -Laboratory studies: Troponin 0.066, 0.064, 0.062. WBC 9.6, hemoglobin 7.2. Sodium 135, BUN 32 creatinine 3.45. Magnesium 2.4. proBNP 2360. Procalcitonin 0.28. Influenza and COVID not detected. -Home cardiac medications: Aspirin 81 mg daily, Plavix 75 mg daily, Cardizem CD 180 mg daily, Zetia 10 mg daily, Imdur 30 mg daily, magnesium 200 mg daily, metoprolol succinate 25 mg daily, Nitrostat as needed, rosuvastatin 40 mg daily, sotalol 120 mg twice daily, spironolactone 25 mg at bedtime. -Pacemaker interrogation performed 12/2024 in the office revealed atrial pacing at 100% and ventricular pacing at less than 1% with no episodes of arrhythmia detected. -Cardiac catheterization performed in 2012 revealed patent SINGH to LAD, patent SVG to diagonal, patent SVG to OM, patent SVG to RCA. -Lexiscan Cardiolite stress test performed in the office in 12/19/2024 revealed nondiagnostic electrocardiographic stress testing response to Lexiscan. Abnormal myocardial perfusion imaging with evidence of reversible defect of small size and mild intensity involving the inferior lateral wall of the left ventricle. Normal left ventricular systolic function. -Echocardiogram performed in the office on 12/19/2024 revealed EF of 55 to 60%, severe concentric left ventricular hypertrophy. Moderate mitral regurgitation. Mild tricuspid regurgitation, PASP 18 mmHg. Review Of Systems: At the time of my exam: CONSTITUTIONAL: Denies fever or chills. HEENT: Denies blurred vision, vision changes, or eye pain. Denies hemoptysis CARDIOVASCULAR: Denies chest pain. Denies orthopnea. Denies PND. Denies pal pitations RESPIRATORY: Denies shortness of breath. GASTROINTESTINAL: Denies abdominal pain. Denies nausea or vomiting. HEMATOLOGIC: Denies bleeding disorders. GENITOURINARY: Denies any blood in urine. SKIN: Denies puritis. Denies rash. Physical examination: Gen: This is 80-year-old male in no acute distress VS: reviewed HEENT: Head is atraumatic, normocephalic. Pupils equal, round. Sclerae is anicteric. NECK: Supple. No JVD. LUNGS: Clear to auscultation. No wheezes or rhonchi. No intercostal retractions. HEART: Regular rate and rhythm. Systolic murmur. ABDOMEN: Soft No tenderness. EXTREMITIES: No pedal edema. No calf tenderness. NEUROLOGICAL: Patient is awake, alert and oriented x3. Assessment: Acute hypoxic respiratory failure secondary to pneumonia, on antibiotics Elevated troponins with flat pattern not indicative of acute coronary syndrome. Elevated troponins secondary to renal failure and pneumonia. End-stage renal disease on peritoneal dialysis Anemia of chronic disease Coronary artery disease with previous CABG AAA repair Hypertension Dyslipidemia Permanent pacemaker History of nephrectomy Plan: Resume patient's home cardiac medications No medication changes made No need to repeat echocardiogram as this was performed in November Further recommendations to follow based upon clinical course Thank you kindly for this consultation. Nurse practitioner note has been reviewed, I agree with documented findings and plan of care. Patient was seen and examined. Past Medical History Past Medical History: Cancer, Hyperlipidemia, Hypertension, Myocardial Infarction ([place]), Pneumonia, Renal Disease, Seizure Disorder Additional Past Medical History / Comment(s): kidney ca, last seizure 1 yr ago Last Myocardial Infarction Date:: unsure History of Any Multi-Drug Resistant Organisms: None Reported Past Surgical History: Back Surgery, Cholecystectomy, Coronary Bypass/CABG, Heart Catheterization With Stent, Orthopedic Surgery Additional Past Surgical History / Comment(s): rt kidney removed, [address] aorta "replacement" cataract removal (bil0 Past Anesthesia/Blood Transfusion Reactions: No Reported Reaction Date of Last Stent Placement:: unsure Past Psychological History: No Psychological Hx Reported Smoking Status: Former smoker Past Alcohol Use History: None Reported Past Drug Use History: None Reported - Past Family History Daughter(s) Family Medical History: Cancer Additional Family Medical History / Comment(s): leukiemia other daughter cervialc Son(s) Family Medical History: Cancer Additional Family Medical History / Comment(s): lung kidney Mother Family Medical History: Cancer Father Family Medical History: Myocardial Infarction ([place]) Brother(s) Family Medical History: Myocardial Infarction ([place]) Medications and Allergies Home Medications Medication Instructions Recorded Confirmed Type Aspirin EC [Ecotrin Low Dose] 81 mg PO DAILY 06/14/21 03/10/25 History Cholecalciferol [Vitamin D3 (25 50 mcg PO DAILY 06/14/21 03/10/25 History Mcg = 1000 Iu)] Magnesium 200 mg PO DAILY 06/14/21 03/10/25 History Nitroglycerin Sl Tabs [Nitrostat] 0.4 mg SL Q5M PRN 06/14/21 03/10/25 History Rosuvastatin Calcium [Crestor] 40 mg PO DAILY 06/14/21 03/10/25 History Sotalol [Betapace] 120 mg PO BID 06/14/21 03/10/25 History carBAMazepine [TEGretol] 200 mg PO BID 06/14/21 03/10/25 History levETIRAcetam [Keppra] 375 mg PO Q48H 06/14/21 03/10/25 History Clopidogrel [Plavix] 75 mg PO DAILY 30 Days #30 tab 06/17/21 03/10/25 Rx ALPRAZolam [Xanax] 0.25 mg PO BID PRN 04/05/24 03/10/25 History Metoprolol Succinate (ER) [Toprol 25 mg PO DAILY 04/05/24 03/10/25 History XL] Omeprazole [PriLOSEC] 20 mg PO DAILY 04/05/24 03/10/25 History Spironolactone 25 mg PO HS 04/05/24 03/10/25 History allopurinoL 100 mg PO DAILY 04/05/24 03/10/25 History Cyanocobalamin (Vitamin B-12) 1,000 mcg PO DAILY 03/10/25 03/10/25 History [Vitamin B-12] Diltiazem Cd [Cardizem CD] 180 mg PO DAILY 03/10/25 03/10/25 History Ezetimibe [Zetia] 10 mg PO HS 03/10/25 03/10/25 History Folic Acid 1 mg PO DAILY 03/10/25 03/10/25 History HYDROcodone/APAP 10-325MG [[place] 1 tab PO Q6H PRN 03/10/25 03/10/25 History 10-325] Isosorbide Mononitrate ER [Imdur] 30 mg PO DAILY 03/10/25 03/10/25 History Lactulose 20 gm PO DAILY PRN 03/10/25 03/10/25 History Allergies Allergy/AdvReac Type Severity Reaction Status Date / Time cyclobenzaprine Allergy Unknown Verified 03/10/25 10:45 [From Flexeril] Fish Containing Products Allergy Swelling Verified 03/10/25 10:45 [Fish] hydralazine Allergy Unknown Verified 03/10/25 10:45 niacin Allergy Unknown Verified 03/10/25 10:45 shellfish derived [Shellfish] Allergy Swelling Verified 03/10/25 10:45 simvastatin Allergy Unknown Verified 03/10/25 10:45 Physical Exam Vitals: Vital Signs Temp Pulse Pulse Resp BP BP Pulse Ox 03/11/25 05:41 97.9 F 60 17 136/76 98 03/11/25 04:30 98.1 F 62 16 155/76 97 03/10/25 23:54 98.2 F 60 18 148/77 97 03/10/25 20:00 97.7 F 63 16 129/63 96 03/10/25 18:08 98.5 F 60 18 118/57 96 03/10/25 16:00 97.8 F 65 16 165/79 96 03/10/25 14:00 65 18 03/10/25 13:27 98.0 F 60 16 148/78 98 03/10/25 11:28 97.5 F L 60 18 123/70 98 03/10/25 10:06 68 15 128/53 100 03/10/25 09:28 97.8 F 66 60 18 117/50 165/79 97 03/10/25 08:41 98.2 F 64 18 99 Intake and Output 03/10/25 03/11/25 03/11/25 22:59 06:59 14:59 Intake Total 10 10 Output Total 400 250 Balance -390 -240 Intake: IV 10 10 Invasive Line 1 10 10 Output: Urine 400 250 Other: # Voids 1 1 Weight 84.3 kg Results 03/11/25 04:28 03/11/25 04:28 Cardiac Enzymes 03/10/25 03/10/25 03/11/25 Range/Units 11:48 15:26 04:28 AST 21 (17-59) U/L Troponin I 0.064 H* 0.062 H* (0.000-0.034) ng/mL CBC 03/11/25 Range/Units 04:28 WBC 9.60 (4.50-10.00) 10*3/uL RBC 2.39 L (4.40-5.60) 10*6/uL Hgb 7.2 L (13.0-17.0) g/dL Hct 23.9 L (39.6-50.0) % Plt Count 178 (140-440) 10*3/uL Comprehensive Metabolic Panel 03/11/25 Range/Units 04:28 Sodium 135 L (137-145) mmol/L Potassium 3.8 (3.5-5.1) mmol/L Chloride 101 (98-107) mmol/L Carbon Dioxide 28 (22-30) mmol/L BUN 42 H (9-20) mg/dL Creatinine 3.45 H (0.66-1.25) mg/dL Glucose 97 (74-99) mg/dL Calcium 9.0 (8.4-10.2) mg/dL AST 21 (17-59) U/L ALT 17 (4-49) U/L Alkaline Phosphatase 62 (38-126) U/L Total Protein 5.6 L (6.3-8.2) g/dL Albumin 3.3 L (3.5-5.0) g/dL Current Medications Generic Name Dose Route Start Last Admin Trade Name Freq PRN Reason Stop Dose Admin Acetaminophen 650 mg 03/10/25 09:02 Acetaminophen Tab 325 Mg Tab PO Q6HR PRN Mild Pain or Fever > 100.5 Hydrocodone Bitart/Acetaminophen 1 each 03/10/25 13:44 03/11/25 06:29 Hydrocodone/Apap 10-325mg 1 Each Tab PO 1 each Q6H PRN Administration Pain Allopurinol 100 mg 03/10/25 13:45 03/10/25 15:16 Allopurinol 100 Mg Tab PO 100 mg DAILY EBONI Administration Alprazolam 0.25 mg 03/10/25 13:44 Alprazolam 0.25 Mg Tab PO BID PRN Anxiety Aspirin 81 mg 03/10/25 13:45 03/10/25 15:16 Aspirin 81 Mg PO 81 mg DAILY [facility] Administration Atorvastatin Calcium 80 mg 03/11/25 09:00 Atorvastatin 80 Mg Tab PO DAILY [facility] Carbamazepine 200 mg 03/10/25 13:45 03/10/25 21:05 Carbamazepine 200 Mg Tab PO 200 mg BID EBONI Administration Cholecalciferol 50 mcg 03/11/25 09:00 Cholecalciferol 25 Mcg (1000 Iu) Tablet PO DAILY [facility] Clopidogrel Bisulfate 75 mg 03/10/25 13:45 03/10/25 15:16 Clopidogrel 75 Mg Tab PO 75 mg DAILY [facility] Administration Cyanocobalamin 1,000 mcg 03/11/25 09:00 Cyanocobalamin 500 Mcg Tab PO DAILY [facility] Diltiazem HCl 180 mg 03/10/25 13:45 03/10/25 15:16 Diltiazem Cd 180 Mg Cap.Er.24h PO 180 mg DAILY [facility] Administration Ezetimibe 10 mg 03/10/25 21:00 03/10/25 21:03 Ezetimibe 10 Mg Tab PO 10 mg HS [facility] Administration Folic Acid 1 mg 03/11/25 09:00 Folic Acid 1 Mg Tab PO DAILY [facility] Furosemide 40 mg 03/10/25 16:00 03/10/25 15:16 Furosemide 40 Mg Tab PO 40 mg BID@0900,1600 [facility] Administration Guaifenesin 1,200 mg 03/11/25 09:00 Guaifenesin 600 Mg Tablet.Er PO Q12HR [facility] Ceftriaxone Sodium 1 gm/ 50 mls @ 100 mls/hr 03/11/25 09:00 Sodium Chloride IVPB Q24HR [facility] Protocol Peritoneal Dialysis Solution 50 g in 2,000 mls @ 0 mls/hr 03/10/25 12:00 03/11/25 05:41 Delflex With 2.5% Dextrose (2,000 Ml) INTRAPERIT 1,500 mls/hr Q6HR [facility] Administration Protocol As Directed Azithromycin 500 mg/ Sodium 250 mls @ 250 mls/hr 03/11/25 09:00 Chloride IVPB 03/13/25 09:59 DAILY [facility] Protocol Isosorbide Mononitrate 30 mg 03/11/25 09:00 Isosorbide Mononitrate Er 30 Mg Tab.Er.24h PO DAILY [facility] Lactulose 20 gm 03/10/25 13:44 03/11/25 06:29 Lactulose 20 Gm/30 Ml Cup PO 20 gm DAILY PRN Administration Constipation Levetiracetam 375 mg 03/10/25 21:00 03/10/25 21:02 Levetiracetam 750 Mg Tab PO 375 mg Q48H [facility] Administration Magnesium Oxide 200 mg 03/10/25 13:45 03/10/25 15:16 Magnesium Oxide 400 Mg Tab PO 200 mg DAILY [facility] Administration Metoprolol Succinate 25 mg 03/10/25 13:45 03/10/25 15:16 Metoprolol Succinate (Er) 25 Mg Tab.Er.24h PO 25 mg DAILY [facility] Administration Naloxone HCl 0.2 mg 03/10/25 09:02 Naloxone 0.4 Mg/Ml 1 Ml Vial IV Q2M PRN Opioid Reversal Nitroglycerin 0.4 mg 03/10/25 13:44 Nitroglycerin Sl Tabs 0.4 Mg Tab SUBLINGUAL Q5M PRN Chest Pain Ondansetron HCl 4 mg 03/10/25 09:02 Ondansetron 4 Mg/2 Ml Vial IVP Q8HR PRN Nausea And Vomiting Pantoprazole Sodium 40 mg 03/11/25 07:30 03/11/25 06:29 Pantoprazole 40 Mg Tablet PO 40 mg [id number] EBONI Administration Sotalol HCl 120 mg 03/10/25 21:00 03/10/25 21:03 Sotalol 120 Mg Tab PO 120 mg BID [facility] Administration Spironolactone 25 mg 03/10/25 21:00 03/10/25 21:03 Spironolactone 25 Mg Tab PO 25 mg HS [facility]ONI Administration Intake and Output 03/10/25 03/11/25 03/11/25 22:59 06:59 14:59 Intake Total 10 10 Output Total 400 250 Balance -390 -240 Intake: IV 10 10 Invasive Line 1 10 10 Output: Urine 400 250 Other: # Voids 1 1 Weight 84.3 kg 03/11/25 04:28 03/11/25 04:28
[2025-03-11] MEDS: SODIUM FERRIC GLUCONAT-SUCROSE 125 MG in SODIUM CHLORIDE 0.9% 100 ML IVPB ONE (12:15)
[2025-03-11] MEDS: DARBEPOETIN ALFA 40 MCG/0.4 ML SYRINGE SQ SCH (12:48)
--- NOTE | 2025-03-11 13:15 | CA ---
Transthoracic Echo Report Name: Kelton Medley Age: 80 Gender: M : 1945 Exam Date: 03/11/2025 09:44 Exam Location: [facility] Ht (in): 67 Wt (lb): 183 Ordering Physician: Jose Blair MD Attending/Referring Phys: Emergency Medical Dispatcher Elana Barker RDCS Procedure CPT: Indications: chf Cardiac Hx: Bypass x5, stent x5, aortic graft, pacemaker Technical Quality: Fair Contrast 1: Total Dose (mL): Contrast 2: Total Dose (mL): MEASUREMENTS (Male / Female) Normal Values 2D ECHO LV Diastolic Diameter PLAX 4.0 cm 4.2 - 5.9 / 3.9 - 5.3 cm LV Systolic Diameter PLAX 2.6 cm IVS Diastolic Thickness 1.7 cm 0.6 - 1.0 / 0.6 - 0.9 cm LVPW Diastolic Thickness 1.3 cm 0.6 - 1.0 / 0.6 - 0.9 cm LV Relative Wall Thickness 0.7 LVOT Diameter 2.3 cm Aortic Root Diameter 3.2 cm LV Diastolic Volume MOD BP 97.3 cm??? 67 - 155 / 56 - 104 cm??? LV Systolic Volume MOD BP 45.6 cm??? 22 - 58 / 19 - 49 cm??? LV Ejection Fraction MOD BP 53.1 % >= 55 % LV Cardiac Index MOD BP 1550.2 cm???/min???m??? LV Diastolic Volume MOD 4C 97.5 cm??? LV Systolic Volume MOD 4C 44.5 cm??? LV Ejection Fraction MOD 4C 54.3 % LV Cardiac Index MOD 4C 1586.6 cm???/min???m??? LV Diastolic Length 4C 8.1 cm LV Systolic Length 4C 7.0 cm LV Diastolic Volume MOD 2C 96.6 cm??? LV Systolic Volume MOD 2C 45.2 cm??? LV Ejection Fraction MOD 2C 53.2 % LV Cardiac Index MOD 2C 1540.7 cm???/min???m??? LV Diastolic Length 2C 8.2 cm LV Systolic Length 2C 7.2 cm Ascending Aorta Diameter 3.5 cm DOPPLER AV Peak Velocity 192.4 cm/s AV Peak Gradient 14.8 mmHg AV Mean Velocity 124.6 cm/s AV Mean Gradient 7.1 mmHg AV Velocity Time Integral 41.7 cm LVOT Peak Velocity 96.0 cm/s LVOT Peak Gradient 3.7 mmHg LVOT Velocity Time Integral 21.4 cm LVOT Stroke Volume 86.1 cm??? LVOT Stroke Volume Index 44.2 ml/m??? LVOT Cardiac Index 2582.2 cm???/min???m??? AV Area Cont Eq vti 2.1 cm??? AV Area Cont Eq pk 2.0 cm??? Mitral E Point Velocity 74.8 cm/s Mitral A Point Velocity 78.7 cm/s Mitral E to A Ratio 1.0 MV Deceleration Time 206.4 ms MV E' Velocity 3.2 cm/s Mitral E to MV E' Ratio 23.5 TR Peak Velocity 244.5 cm/s TR Peak Gradient 23.9 mmHg Right Atrial Pressure 5.0 mmHg Pulmonary Artery Systolic Pressu 28.9 mmHg Right Ventricular Systolic Press 28.9 mmHg PV Peak Velocity 100.2 cm/s PV Peak Gradient 4.0 mmHg FINDINGS Left Ventricle Left ventricular ejection fraction is estimated at 55-60 %. Moderately increased septal wall thickness. Left ventricular cavity size normal. No obvious regional wall motion abnormalities. Right Ventricle Normal right ventricular size and function. Right ventricular systolic pressure within normal limits. Right Atrium Normal right atrial size. Catheter/pacemaker wire in the right atrial cavity. Left Atrium Normal left atrial size. Mitral Valve Mitral valve thickened. Mild mitral annular calcification. No evidence for mitral valve prolapse. No mitral stenosis. Trace to mild mitral regurgitation. Aortic Valve Trileaflet aortic valve. No aortic valve stenosis or regurgitation. Tricuspid Valve Structurally normal tricuspid valve. No tricuspid stenosis. Mild tricuspid regurgitation. Pulmonic Valve Structurally normal pulmonic valve. No pulmonic stenosis. Trace pulmonic regurgitation. Pericardium No pericardial effusion. Echo free space anterior to the right ventricle likely represents a fat pad. Aorta Normal size aortic root and proximal ascending aorta. CONCLUSIONS Left ventricular ejection fraction 55 to 60% Trace to mild mitral regurgitation RVSP 29 Mild tricuspid regurgitation No pericardial effusion Previewed by: Dr. Beka Henley DO (Electronically Signed) Final Date: 11 March 2025 13:14
--- NOTE | 2025-03-11 17:59 | P.PN ---
Subjective Progress Note Date: 03/11/25 Kelton Medley is a 80-year-old male patient who presented with concerns of increased shortness of breath and coughing. Patient has extensive medical history including coronary artery disease with CABG, CHF, end-stage renal dialysis with recent initiation of peritoneal dialysis, heart cath with stents, hyperlipidemia, pacemaker placement hypertension, seizure disorder and pneumonia. Lab work completed showing white blood cell 9.07, hemoglobin 7.5, sodium 136, creatinine 3.0, bun 44. Troponin 0.066, BNP 2360 and lipase 391. At this time patient will be admitted. Chest x-ray and procalcitonin levels ordered. Patient started on IV antibiotics with concerns of pneumonia. Cardiology consulted for elevated troponins. Nephrology and pulmonary services also consulted. Will order influenza and COVID swabs along with 2D echo. At this time patient is sitting comfortably in bed patient complaining about shortness of breath and cough. Patient denies chest pain patient denies nausea vomiting or diarrhea. Patient denies any urinary burning or frequency. Current vital signs temp 98.2, heart 66, respiratory rate 15, blood pressure 117/50 with pulse ox of 100% on 4 L nasal cannula On 03/11/2025 patient was seen and examined on the telemetry floor he is alert and oriented x 3 in no apparent distress he is complaining of cough with sputum production complaining of shortness of breath with activity otherwise he denies any complaints there is no fever or chills no headache or dizziness no chest pain no nausea or vomiting no abdominal pain no diarrhea no blood in the stools no urinary symptoms. Input from pulmonary cardiology and nephrology reviewed, continue with current antibiotic and recheck in a.m.. Objective - Vital Signs Vital signs: Vital Signs Temp 98.3 F 03/11/25 16:00 Pulse 60 03/11/25 16:00 Resp 16 03/11/25 16:00 BP 139/77 03/11/25 16:00 Pulse Ox 98 03/11/25 16:00 FiO2 Intake & Output 03/10/25 03/11/25 03/11/25 18:59 06:59 18:59 Intake Total 20 10 Output Total 400 250 900 Balance -400 230 -890 Weight 83.007 kg 84.3 kg Intake: IV 20 10 Invasive Line 1 20 10 Output: Urine 400 250 900 Other: # Voids 1 1 - Exam In general patient is alert and oriented x 3 in no distress HEENT head normocephalic and atraumatic Neck is supple no JVD no goiter no lymphadenopathy no carotid bruit Chest examination is clear to auscultation no crackles no wheezing Cardiac exam reveals regular heart sounds S1 and S2 no gallops no murmurs Abdomen is soft nontender no organomegaly with normal bowel sounds Extremity exam reveals no edema no cyanosis or clubbing Neurological examination reveals no gross focal deficits - Labs CBC & Chem 7: 03/11/25 04:28 03/11/25 04:28 Labs: Abnormal Lab Results - Last 24 Hours (Table) 03/10/25 03/10/25 03/11/25 Range/Units 11:48 15:50 04:28 RBC 2.39 L (4.40-5.60) 10*6/uL Hgb 7.2 L (13.0-17.0) g/dL Hct 23.9 L (39.6-50.0) % MCV 100.0 H (80.0-97.0) fL MCHC 30.1 L (32.0-37.0) g/dL Immature Gran # 0.05 H (0.00-0.04) 10*3/uL Sodium (137-145) mmol/L BUN (9-20) mg/dL Creatinine (0.66-1.25) mg/dL Iron 54 L (65-175) UG/DL Transferrin 182.0 L (204.0-354.0) mg/dL Total Protein (6.3-8.2) g/dL Albumin (3.5-5.0) g/dL Urine Protein 1+ H (Negative) Urine Glucose (UA) 2+ H (Negative) Urine Blood Trace H (Negative) Calcium Oxalate Crystal Rare H (None) /hpf Urine Mucus Rare H (None) /hpf Urine Yeast (Budding) Rare H (None) /hpf 03/11/25 Range/Units 04:28 RBC (4.40-5.60) 10*6/uL Hgb (13.0-17.0) g/dL Hct (39.6-50.0) % MCV (80.0-97.0) fL MCHC (32.0-37.0) g/dL Immature Gran # (0.00-0.04) 10*3/uL Sodium 135 L (137-145) mmol/L BUN 42 H (9-20) mg/dL Creatinine 3.45 H (0.66-1.25) mg/dL Iron (65-175) UG/DL Transferrin (204.0-354.0) mg/dL Total Protein 5.6 L (6.3-8.2) g/dL Albumin 3.3 L (3.5-5.0) g/dL Urine Protein (Negative) Urine Glucose (UA) (Negative) Urine Blood (Negative) Calcium Oxalate Crystal (None) /hpf Urine Mucus (None) /hpf Urine Yeast (Budding) (None) /hpf Microbiology - Last 24 Hours (Table) 03/10/25 07:32 Blood Culture - Preliminary Blood Assessment and Plan Assessment: 1. Increase shortness of breath and congestion 2. Acute on chronic congestive heart failure 3. Elevated troponins 4. Concerns of possible pneumonia 5. End-stage renal disease maintained on peritoneal dialysis per patient's at bedside this has been recently started 6. History of cardiomyopathy 7. History of cardiac arrhythmia patient has pacemaker placement 8. History of severe coronary artery disease with previous CABG and multiple stent placement 9. History of kidney cancer status post right nephrectomy 10. History of hyperlipidemia 11. History of seizure disorder 12. History of essential hypertension 13. Anemia likely secondary to chronic kidney disease DVT prophylaxis SCDs (low hemoglobin), GI prophylaxis Protonix Nephrology, cardiology and pulmonary services consulted Chest x-ray, 2D echo and stool for occult blood ordered COVID-19 and influenza ordered Repeat labs ordered
[2025-03-12 08:18] LABS: Basophils # (A) 0.02 10*3/uL (0.00-0.10); Basophils % (A) 0.3 %; Eosinophils # (A) 0.31 10*3/uL (0.04-0.35); Eosinophils % (A) 4.6 %; HCT 25.4 % (39.6-50.0); HGB 7.6 g/dL (13.0-17.0); Lymphocytes # (A) 1.24 10*3/uL (0.90-5.00); Lymphocytes % (A) 18.3 %; MCH 30.3 pg (27.0-32.0); MCHC 29.9 g/dL (32.0-37.0); MCV 101.2 fL (80.0-97.0); Mean Platelet Volume 9.6 fL (9.5-12.2); Monocytes # (A) 0.54 10*3/uL (0.20-1.00); Neutrophils # (A) 4.62 10*3/uL (1.80-7.70); Neutrophils % (A) 68.2 %; Platelet Count 198 10*3/uL (140-440); RBC 2.51 10*6/uL (4.40-5.60); RDW 15.3 % (11.5-14.5); WBC 6.77 10*3/uL (4.50-10.00)
[2025-03-12 08:37] LABS: ALT 20 U/L (4-49); AST 25 U/L (17-59); African American GFR (CKD) 19 (>60 ml/min/1.73 sqM); Albumin 3.5 g/dL (3.5-5.0); Alkaline Phosphatase 65 U/L (38-126); Anion Gap 10 mmol/L; Blood Urea Nitrogen 35 mg/dL (9-20); Calcium 8.7 mg/dL (8.4-10.2); Carbon Dioxide 27 mmol/L (22-30); Chloride 101 mmol/L (98-107); Glucose 132 mg/dL (74-99); Non-African American GFR(CKD) 17 (>60 ml/min/1.73 sqM); Potassium 3.5 mmol/L (3.5-5.1); Sodium 138 mmol/L (137-145); Total Bilirubin 0.4 mg/dL (0.2-1.3); Total Protein 5.8 g/dL (6.3-8.2)
--- NOTE | 2025-03-12 09:50 | P.PN ---
Subjective Progress Note Date: 03/12/25 Kelton Medley is a 80-year-old male patient who presented with concerns of increased shortness of breath and coughing. Patient has extensive medical history including coronary artery disease with CABG, CHF, end-stage renal dialysis with recent initiation of peritoneal dialysis, heart cath with stents, hyperlipidemia, pacemaker placement hypertension, seizure disorder and pneumonia. Lab work completed showing white blood cell 9.07, hemoglobin 7.5, sodium 136, creatinine 3.0, bun 44. Troponin 0.066, BNP 2360 and lipase 391. At this time patient will be admitted. Chest x-ray and procalcitonin levels ordered. Patient started on IV antibiotics with concerns of pneumonia. Cardiology consulted for elevated troponins. Nephrology and pulmonary services also consulted. Will order influenza and COVID swabs along with 2D echo. At this time patient is sitting comfortably in bed patient complaining about shortness of breath and cough. Patient denies chest pain patient denies nausea vomiting or diarrhea. Patient denies any urinary burning or frequency. Current vital signs temp 98.2, heart 66, respiratory rate 15, blood pressure 117/50 with pulse ox of 100% on 4 L nasal cannula On 03/11/2025 patient was seen and examined on the telemetry floor he is alert and oriented x 3 in no apparent distress he is complaining of cough with sputum production complaining of shortness of breath with activity otherwise he denies any complaints there is no fever or chills no headache or dizziness no chest pain no nausea or vomiting no abdominal pain no diarrhea no blood in the stools no urinary symptoms. Input from pulmonary cardiology and nephrology reviewed, continue with current antibiotic and recheck in a.m.. On 03/12/2025 patient is alert and oriented x 3. Patient reports overall improvement. Patient remains on IV antibiotics. Pulmonary, nephrology and cardiology services are following. Patient currently getting peritoneal dialysis. Current vital signs temp 97.6, heart 64, respiratory rate 14, blood pressure 121/60 with a pulse ox of 94% on room air. Creatinine 3.31 bun 35. Wh ite blood cell 6.77 and hemoglobin 7.6 Objective - Vital Signs Vital signs: Vital Signs Temp 97.6 F 03/12/25 08:17 Pulse 64 03/12/25 08:17 Resp 14 03/12/25 08:17 BP 121/60 03/12/25 08:17 Pulse Ox 94 L 03/12/25 08:17 FiO2 Intake & Output 03/11/25 03/12/25 03/12/25 18:59 06:59 18:59 Intake Total 10 100 Output Total 900 425 Balance -890 -425 100 Weight 83.6 kg Intake: IV 10 Invasive Line 1 10 Oral 100 Output: Urine 900 425 Other: Voiding Method Toilet Urinal - Exam In general patient is alert and oriented x 3 in no distress HEENT head normocephalic and atraumatic Neck is supple no JVD no goiter no lymphadenopathy no carotid bruit Chest examination is clear to auscultation no crackles no wheezing Cardiac exam reveals regular heart sounds S1 and S2 no gallops no murmurs Abdomen is soft nontender no organomegaly with normal bowel sounds Extremity exam reveals no edema no cyanosis or clubbing Neurological examination reveals no gross focal deficits - Labs CBC & Chem 7: 03/12/25 07:35 03/12/25 07:35 Labs: Abnormal Lab Results - Last 24 Hours (Table) 03/12/25 03/12/25 Range/Units 07:35 07:35 RBC 2.51 L (4.40-5.60) 10*6/uL Hgb 7.6 L (13.0-17.0) g/dL Hct 25.4 L (39.6-50.0) % MCV 101.2 H (80.0-97.0) fL MCHC 29.9 L (32.0-37.0) g/dL BUN 35 H (9-20) mg/dL Creatinine 3.31 H (0.66-1.25) mg/dL Glucose 132 H (74-99) mg/dL Total Protein 5.8 L (6.3-8.2) g/dL Microbiology - Last 24 Hours (Table) 03/11/25 08:55 Gram Stain - Preliminary Sputum 03/10/25 07:32 Blood Culture - Preliminary Blood Assessment and Plan Assessment: 1. Increase shortness of breath and congestion 2. Acute on chronic congestive heart failure 3. Elevated troponins 4. Concerns of possible pneumonia 5. End-stage renal disease maintained on peritoneal dialysis per patient's at bedside this has been recently started 6. History of cardiomyopathy 7. History of cardiac arrhythmia patient has pacemaker placement 8. History of severe coronary artery disease with previous CABG and multiple stent placement 9. History of kidney cancer status post right nephrectomy 10. History of hyperlipidemia 11. History of seizure disorder 12. History of essential hypertension 13. Anemia likely secondary to chronic kidney disease DVT prophylaxis SCDs (low hemoglobin), GI prophylaxis Protonix Nephrology, cardiology and pulmonary services consulted Chest x-ray, 2D echo and stool for occult blood ordered COVID-19 and influenza ordered Repeat labs ordered
--- NOTE | 2025-03-12 11:00 | P.PN ---
Subjective Progress Note Date: 03/12/25 Reason for Consult (text): ACS History of present illness: This is a 80-year-old male patient of Dr. Ferreira with past medical history of coronary artery disease status post CABG with SINGH to LAD and SVG to diagonal, SVG to OM, SVG to RCA, AAA status postsurgical repair, hypertension, dyslipidemia, permanent pacemaker, history of nephrectomy and end-stage renal disease on peritoneal dialysis, patient is also on sotalol for unknown reason. We have been asked to evaluate the patient for acute coronary syndrome. Patient states that he came into the hospital because he felt very antsy almost like he was having a seizure. He states he had pain all over his body including his chest and back arms and shoulders. He states he has had a cough with sputum production. He does use a nebulizer treatment at home. He does not have home oxygen. Blood pressure 136/76, heart rate 60, pulse ox 98% on 2 L nasal cannula. Temperature max 100.1. Patient has been started on IV antibiotics. He states he is feeling great right now. -EKG: Paced rhythm. -Chest x-ray: Airspace opacities project over the spine lateral view correlate for pneumonia. -Laboratory studies: Troponin 0.066, 0.064, 0.062. WBC 9.6, hemoglobin 7.2. Sodium 135, BUN 32 creatinine 3.45. Magnesium 2.4. proBNP 2360. Procalcitonin 0.28. Influenza and COVID not detected. -Home cardiac medications: Aspirin 81 mg daily, Plavix 75 mg daily, Cardizem CD 180 mg daily, Zetia 10 mg daily, Imdur 30 mg daily, magnesium 200 mg daily, metoprolol succinate 25 mg daily, Nitrostat as needed, rosuvastatin 40 mg daily, sotalol 120 mg twice daily, spironolactone 25 mg at bedtime. -Pacemaker interrogation performed 12/2024 in the office revealed atrial pacing at 100% and ventricular pacing at less than 1% with no episodes of arrhythmia detected. -Cardiac catheterization performed in 2012 revealed patent SINGH to LAD, patent SVG to diagonal, patent SVG to OM, patent SVG to RCA. -Lexiscan Cardiolite stress test performed in the office in 12/19/2024 revealed nondiagnostic electrocardiographic stress testing response to Lexiscan. Abnormal myocardial perfusion imaging with evidence of reversible defect of small size and mild intensity involving the inferior lateral wall of the left ventricle. Normal left ventricular systolic function. -Echocardiogram performed in the office on 12/19/2024 revealed EF of 55 to 60%, severe concentric left ventricular hypertrophy. Moderate mitral regurgitation. Mild tricuspid regurgitation, PASP 18 mmHg. 03/12/2025 Blood pressure 121/60, heart rate 64, pulse ox 94% on room air. Patient is no longer requiring oxygen therapy. Repeat blood work reveals hemoglobin 7.6, BUN 35 creatinine 3.31. Echocardiogram reveals EF 55 to 60%, trace to mild mitral regurgitation. RVSP 29, mild tricuspid regurgitation. No pericardial effusion. Patient is followed by nephrology for end-stage renal disease maintained on PD exchanges. Patient was also ordered 1 dose of IV iron yesterday. Physical examination: Gen: This is 80-year-old male in no acute distress VS: reviewed HEENT: Head is atraumatic, normocephalic. Pupils equal, round. Sclerae is anicteric. NECK: Supple. No JVD. LUNGS: Clear to auscultation. No wheezes or rhonchi. No intercostal retra ctions. HEART: Regular rate and rhythm. Systolic murmur. ABDOMEN: Soft No tenderness. EXTREMITIES: No pedal edema. No calf tenderness. NEUROLOGICAL: Patient is awake, alert and oriented x3. Assessment: Acute hypoxic respiratory failure secondary to pneumonia, on antibiotics Elevated troponins with flat pattern not indicative of acute coronary syndrome. Elevated troponins secondary to renal failure and pneumonia. End-stage renal disease on peritoneal dialysis Anemia of chronic disease Coronary artery disease with previous CABG AAA repair Hypertension Dyslipidemia Permanent pacemaker History of nephrectomy Plan: Continue patient's home cardiac medications No medication changes made Further recommendations to follow based upon clinical course Nurse practitioner note has been reviewed, I agree with documented findings and plan of care. Patient was seen and examined. Objective - Vital Signs Vital signs: Vital Signs Temp 97.6 F 03/12/25 04:00 Pulse 57 L 03/12/25 04:00 Resp 16 03/12/25 04:00 BP 154/76 03/12/25 05:56 Pulse Ox 99 03/12/25 04:00 FiO2 Intake & Output 03/11/25 03/12/25 03/12/25 18:59 06:59 18:59 Intake Total 10 Output Total 900 425 Balance -890 -425 Weight 83.6 kg Intake: IV 10 Invasive Line 1 10 Output: Urine 900 425 Other: Voiding Method Toilet Urinal - Labs CBC & Chem 7: 03/12/25 07:35 03/12/25 07:35 Labs: Microbiology - Last 24 Hours (Table) 03/11/25 08:55 Gram Stain - Preliminary Sputum 03/10/25 07:32 Blood Culture - Preliminary Blood
--- NOTE | 2025-03-12 11:17 | P.PN ---
Subjective Patient is seen in follow-up for end-stage renal disease. He is maintained on peritoneal dialysis. Cough improved. Remains on room air. Denies chest pain or shortness of breath. Vital signs are stable. General: No acute distress. HEENT: Head exam is unremarkable. LUNGS: No audible rhonchi or wheezes. HEART: Rate and Rhythm are regular. ABDOMEN: Nontender. EXTREMITITES: No edema. Objective - Vital Signs Vital signs: Vital Signs Temp 97.6 F 03/12/25 08:17 Pulse 64 03/12/25 08:17 Resp 14 03/12/25 08:17 BP 121/60 03/12/25 08:17 Pulse Ox 94 L 03/12/25 08:17 FiO2 Intake & Output 03/11/25 03/12/25 03/12/25 18:59 06:59 18:59 Intake Total 10 100 Output Total 900 425 Balance -890 -425 100 Weight 83.6 kg Intake: IV 10 Invasive Line 1 10 Oral 100 Output: Urine 900 425 Other: Voiding Method Toilet Toilet Urinal Urinal CAPD - Labs CBC & Chem 7: 03/12/25 07:35 03/12/25 07:35 Labs: Abnormal Lab Results - Last 24 Hours (Table) 03/12/25 03/12/25 Range/Units 07:35 07:35 RBC 2.51 L (4.40-5.60) 10*6/uL Hgb 7.6 L (13.0-17.0) g/dL Hct 25.4 L (39.6-50.0) % MCV 101.2 H (80.0-97.0) fL MCHC 29.9 L (32.0-37.0) g/dL BUN 35 H (9-20) mg/dL Creatinine 3.31 H (0.66-1.25) mg/dL Glucose 132 H (74-99) mg/dL Total Protein 5.8 L (6.3-8.2) g/dL Microbiology - Last 24 Hours (Table) 03/11/25 08:55 Gram Stain - Preliminary Sputum 03/10/25 07:32 Blood Culture - Preliminary Blood Assessment and Plan Plan: Assessment: 1. End-stage renal disease maintained on peritoneal dialysis. 2. Pneumonia. Has received antibiotics this admission. 3. Hypertension with chronic kidney disease. Controlled. 4. Coronary disease status post CABG and multiple stents. 5. Anemia of chronic kidney disease. Status post IV iron this admission. On Aranesp. Plan: Maintain current PD exchanges. Maintain Lasix.
--- NOTE | 2025-03-12 13:05 | CDI ---
Documentation Clarification Form Date: 03/12/2025 12:54 PM From: Ofelia Ramos RN CCDS Phone: [phone] Admit Date: 03/10/2025 08:50:00 AM Patient Name: Kelton Medley Visit Number: [id number] Discharge Date: ATTENTION: The Clinical Documentation Specialists (CDI) and [facility] Coding Staff appreciate your assistance in clarifying documentation. Please respond to the clarification below the line at the bottom and electronically sign. The CDI & [facility] Coding staff will review the response and follow-up if needed. Please note: Queries are made part of the Legal Health Record. If you have any questions, please contact the author of this message via ITS. Doctor: Jose Blair Your patient has the documented diagnosis of unspecified CHF [insert date, location]. Additional information regarding the type, acuity of CHF is requested. History/Risk Factors: 80 year old male presents to the ED with shortness of breath and coughing. Medical history: CHF, CABG, ESRD peritoneal dialysis, and HTN. 03/10, HP Clinical Indicators: VS/Pulse OX, 03/10: B/P 162/81; HR 60; Temp 100.1F Oral, RR 18, SpO2 96% ra BNP, 03/10: 2360 Echocardiogram Results: Chest X Ray, 03/10: airspace opacities project over the spine lateral view Treatment: 03/10 Lasix po bid, 03/10 Toprol Xl po daily, 03/10 Aldactone po hs , In your professional opinion, can you please clarify the type, acuity of CHF if known? [ xxx] Acute on Chronic Diastolic Heart Failure (preserved EF) [ ] Chronic Diastolic Heart Failure (preserved EF) [ ] Other, please specify [ ] Unable to determine (Template Last Revised: October 2020) MTDD
[2025-03-12] MEDS: ALPRAZolam 0.25 MG TAB PO PRN (13:14)
--- NOTE | 2025-03-12 13:58 | P.PN ---
Subjective Progress Note Date: 03/12/25 Principal diagnosis: Pneumonia. Patient is a 80-year-old male with past medical history significant for hypertension, hyperlipidemia, coronary artery disease with previous CABG, end- stage renal disease on peritoneal dialysis, seizure disorder, among other things. Patient was transferred from [facility] with concerns of ACS and elevated troponins. Reporting chest pain. On arrival to the ED, was found to be febrile with a temperature of 100.1 F. Chest x-ray showing airspace opacities projecting over the spine on lateral view, concerning for pneumonia. Pacemaker generator in place over the left chest. EKG: Atrially paced rhythm with a rate of [address] elevations. Labs including a CBC with a WBC count of 9, hemoglobin lower than baseline at 7.5 g/dL, platelets 173. CMP: Sodium 136, potassium 3.9, chloride 106, serum bicarb 23, BUN 44, c reatinine 3, glucose 109. Lactic 0.6. LFTs not elevated. Magnesium 2.4. NT proBNP 2360. Troponins 0.066, 0.064, 0.062. Procalcitonin level 0.28. Influenza A/B negative. COVID negative. Patient currently being evaluated on the cardiac stepdown unit. He is resting comfortably on 2 L/min nasal cannula. Patient states she has been short of breath with a congested cough for over a month now. Cough is productive with bruno thick sputum. Denies sick contacts. Previously started on Rocephin in the ED. Currently, afebrile. Denies abdominal pain, change in amount or consistency of peritoneal drainage. His court recording monitor is Dr. Wilson. Denies any chest pain, heart palpitations, syncopal events, orthopnea, lower extremity edema. Current most recent vital signs: Temperature 98.2 F, heart rate 60 bpm, blood pressure 148/77 mmHg, nontachypneic, SpO2 recorded 97% on 2 L/min nasal cannula. Progress note dated March 12, 2025. 80-year-old male seen today in room 367. He was seen in consultation yesterday. Please see the note above. He has multiple medical problems as listed above, including but not limited to hypertension, hyperlipidemia, coronary disease, previous CABG, seizure disorder, and end-stage renal disease, on peritoneal dialysis. The patient is doing better today, he is sitting at the side of the bed. He is feeling much improved. The patient is currently on room air. He is getting saline at 10 cc an hour. His procalcitonin level was normal at 0.28. He continues on azithromycin and Rocephin. The patient's antibiotics in my opinion can be discontinued. The patient would like to be discharged, but we told him we would leave that up to the primary. White count 6.77, hemoglobin 7.6, hematocrit 25.4, platelet count 198,000. Sodium 138, potassium 3.5, chlo rides 101, CO2 27, BUN 35, creatinine 3.31. Culture data is currently negative. Objective - Vital Signs Vital signs: Vital Signs Temp 99 F 03/12/25 11:45 Pulse 60 03/12/25 11:45 Resp 14 03/12/25 11:45 BP 122/68 03/12/25 11:45 Pulse Ox 96 03/12/25 11:45 FiO2 Intake & Output 03/11/25 03/12/25 03/12/25 18:59 06:59 18:59 Intake Total 10 100 Output Total 900 425 Balance -890 -425 100 Weight 83.6 kg Intake: IV 10 Invasive Line 1 10 Oral 100 Output: Urine 900 425 Other: Voiding Method Toilet Toilet Urinal Urinal CAPD - Exam No acute distress, oriented 3. Currently on room air. No respiratory distress. HEENT examination is grossly unremarkable. Mucous membranes are moist. No oral lesions. Neck supple. Full range of motion. No adenopathy thyromegaly or neck vein distention. Cardiovascular examination reveals regular rhythm rate. S1-S2 normal. No S3 or S4. No discernible murmur noted. Lungs reveal scattered bilateral rhonchi. No wheezes. No crackles. Breath so unds are equal bilaterally. Abdomen soft bowel sounds are heard. No masses or tenderness. Extremities are intact. No cyanosis clubbing or edema. Skin is without rash or lesion. Neurologic examination is brief but nonfocal. - Labs CBC & Chem 7: 03/12/25 07:35 03/12/25 07:35 Labs: Abnormal Lab Results - Last 24 Hours (Table) 03/12/25 03/12/25 Range/Units 07:35 07:35 RBC 2.51 L (4.40-5.60) 10*6/uL Hgb 7.6 L (13.0-17.0) g/dL Hct 25.4 L (39.6-50.0) % MCV 101.2 H (80.0-97.0) fL MCHC 29.9 L (32.0-37.0) g/dL BUN 35 H (9-20) mg/dL Creatinine 3.31 H (0.66-1.25) mg/dL Glucose 132 H (74-99) mg/dL Total Protein 5.8 L (6.3-8.2) g/dL Microbiology - Last 24 Hours (Table) 03/11/25 23:59 Gram Stain - Preliminary Dialysate 03/11/25 08:55 Gram Stain - Preliminary Sputum 03/10/25 07:32 Blood Culture - Preliminary Blood Assessment and Plan Assessment: Acute hypoxemic respiratory failure, concerning for possible community-acquired pneumonia or atelectasis Elevated troponins. Anemia, hemoglobin 7.5 g/dL. Hypertension. History of hyperlipidemia. History of coronary artery disease with previous CABG. History of implanted pacemaker. End-stage renal disease, recently started on peritoneal dialysis Jan, 2025. History of renal cancer and right-sided nephrectomy. History of seizure disorder. Plan: Plan dated March 12, 2025. The patient is seen today in room 367. He is on room air. He is getting saline at 10 cc an hour. He continues on azithromycin and Rocephin for possible pneumonia. Procalcitonin level, though, is normal at 0.28. The patient would like to be discharged home. We will leave that up to his primary doctor. Currently his antibiotics can be discontinued. All labs, x-rays, and medications are reviewed. The patient's overall prognosis remains guarded. We will continue to follow the patient, make recommendations along the way. Dictation was produced using [employer] software. Please excuse any grammatical, word or spelling errors. Time with Patient: Less than 30
[2025-03-12] MEDS: SODIUM FERRIC GLUCONAT-SUCROSE 125 MG in SODIUM CHLORIDE 0.9% 100 ML IVPB ONE (14:18)
[2025-03-13 07:09] LABS: Basophils # (A) 0.03 10*3/uL (0.00-0.10); Basophils % (A) 0.4 %; Eosinophils # (A) 0.34 10*3/uL (0.04-0.35); Eosinophils % (A) 4.7 %; HCT 26.3 % (39.6-50.0); Lymphocytes # (A) 1.65 10*3/uL (0.90-5.00); Lymphocytes % (A) 22.8 %; MCH 30.7 pg (27.0-32.0); MCHC 30.4 g/dL (32.0-37.0); MCV 100.8 fL (80.0-97.0); Mean Platelet Volume 9.6 fL (9.5-12.2); Monocytes # (A) 0.68 10*3/uL (0.20-1.00); Monocytes % (A) 9.4 %; Neutrophils # (A) 4.47 10*3/uL (1.80-7.70); Neutrophils % (A) 61.9 %; Platelet Count 228 10*3/uL (140-440); RBC 2.61 10*6/uL (4.40-5.60); RDW 15.3 % (11.5-14.5); WBC 7.23 10*3/uL (4.50-10.00)
[2025-03-13 07:28] LABS: ALT 20 U/L (4-49); AST 23 U/L (17-59); African American GFR (CKD) 16 (>60 ml/min/1.73 sqM); Albumin 3.7 g/dL (3.5-5.0); Alkaline Phosphatase 70 U/L (38-126); Anion Gap 8 mmol/L; Blood Urea Nitrogen 38 mg/dL (9-20); Carbon Dioxide 29 mmol/L (22-30); Chloride 101 mmol/L (98-107); Glucose 109 mg/dL (74-99); Non-African American GFR(CKD) 14 (>60 ml/min/1.73 sqM); Potassium 3.7 mmol/L (3.5-5.1); Sodium 138 mmol/L (137-145); Total Bilirubin 0.4 mg/dL (0.2-1.3)
--- NOTE | 2025-03-13 09:55 | P.PN ---
Subjective Patient is seen in follow-up for end-stage renal disease. He is maintained on peritoneal dialysis. Cough improved. Remains on room air. Denies chest pain or shortness of breath. Wants to go home. Vital signs are stable. General: No acute distress. HEENT: Head exam is unremarkable. LUNGS: No audible rhonchi or wheezes. HEART: Rate and Rhythm are regular. ABDOMEN: Nontender. EXTREMITITES: No edema. Objective - Vital Signs Vital signs: Vital Signs Temp 98.1 F 03/13/25 04:00 Pulse 59 L 03/13/25 04:00 Resp 19 03/13/25 04:00 BP 152/84 03/13/25 04:00 Pulse Ox 94 L 03/13/25 09:03 FiO2 21 03/13/25 09:03 Intake & Output 03/12/25 03/13/25 03/13/25 18:59 06:59 18:59 Intake Total 100 120 Output Total 600 Balance -500 120 Weight 84.2 kg Intake: Oral 100 120 Output: Urine 600 Other: Voiding Method Toilet Toilet Urinal Urinal CAPD CAPD # Voids 1 # Bowel Movements 4 - Labs CBC & Chem 7: 03/13/25 06:18 03/13/25 06:18 Labs: Abnormal Lab Results - Last 24 Hours (Table) 03/13/25 03/13/25 Range/Units 06:18 06:18 RBC 2.61 L (4.40-5.60) 10*6/uL Hgb 8.0 L (13.0-17.0) g/dL Hct 26.3 L (39.6-50.0) % MCV 100.8 H (80.0-97.0) fL MCHC 30.4 L (32.0-37.0) g/dL Immature Gran # 0.06 H (0.00-0.04) 10*3/uL BUN 38 H (9-20) mg/dL Creatinine 3.90 H (0.66-1.25) mg/dL Glucose 109 H (74-99) mg/dL Total Protein 6.0 L (6.3-8.2) g/dL Microbiology - Last 24 Hours (Table) 03/11/25 23:59 Gram Stain - Preliminary Dialysate Body Fluid Culture - Preliminary 03/10/25 07:32 Blood Culture - Preliminary Blood 03/11/25 08:55 Gram Stain - Preliminary Sputum Sputum Culture - Preliminary Gram Neg Bacilli Assessment and Plan Plan: Assessment: 1. End-stage renal disease maintained on peritoneal dialysis. 2. Pneumonia. Has received antibiotics this admission. 3. Hypertension with chronic kidney disease. Stable. 4. Coronary disease status post CABG and multiple stents. 5. Anemia of chronic kidney disease. Status post IV iron this admission. On Aranesp. Plan: Maintain current PD exchanges. Maintain Lasix.
--- NOTE | 2025-03-13 09:59 | P.PN ---
Subjective Progress Note Date: 03/13/25 Reason for Consult (text): ACS History of present illness: This is a 80-year-old male patient of Dr. Ferreira with past medical history of coronary artery disease status post CABG with SINGH to LAD and SVG to diagonal, SVG to OM, SVG to RCA, AAA status postsurgical repair, hypertension, dyslipidemia, permanent pacemaker, history of nephrectomy and end-stage renal disease on peritoneal dialysis, patient is also on sotalol for unknown reason. We have been asked to evaluate the patient for acute coronary syndrome. Patient states that he came into the hospital because he felt very antsy almost like he was having a seizure. He states he had pain all over his body including his chest and back arms and shoulders. He states he has had a cough with sputum production. He does use a nebulizer treatment at home. He does not have home oxygen. Blood pressure 136/76, heart rate 60, pulse ox 98% on 2 L nasal cannula. Temperature max 100.1. Patient has been started on IV antibiotics. He states he is feeling great right now. -EKG: Paced rhythm. -Chest x-ray: Airspace opacities project over the spine lateral view correlate for pneumonia. -Laboratory studies: Troponin 0.066, 0.064, 0.062. WBC 9.6, hemoglobin 7.2. Sodium 135, BUN 32 creatinine 3.45. Magnesium 2.4. proBNP 2360. Procalcitonin 0.28. Influenza and COVID not detected. -Home cardiac medications: Aspirin 81 mg daily, Plavix 75 mg daily, Cardizem CD 180 mg daily, Zetia 10 mg daily, Imdur 30 mg daily, magnesium 200 mg daily, metoprolol succinate 25 mg daily, Nitrostat as needed, rosuvastatin 40 mg daily, sotalol 120 mg twice daily, spironolactone 25 mg at bedtime. -Pacemaker interrogation performed 12/2024 in the office revealed atrial pacing at 100% and ventricular pacing at less than 1% with no episodes of arrhythmia detected. -Cardiac catheterization performed in 2012 revealed patent SINGH to LAD, patent SVG to diagonal, patent SVG to OM, patent SVG to RCA. -Lexiscan Cardiolite stress test performed in the office in 12/19/2024 revealed nondiagnostic electrocardiographic stress testing response to Lexiscan. Abnormal myocardial perfusion imaging with evidence of reversible defect of small size and mild intensity involving the inferior lateral wall of the left ventricle. Normal left ventricular systolic function. -Echocardiogram performed in the office on 12/19/2024 revealed EF of 55 to 60%, severe concentric left ventricular hypertrophy. Moderate mitral regurgitation. Mild tricuspid regurgitation, PASP 18 mmHg. 03/12/2025 Blood pressure 121/60, heart rate 64, pulse ox 94% on room air. Patient is no longer requiring oxygen therapy. Repeat blood work reveals hemoglobin 7.6, BUN 35 creatinine 3.31. Echocardiogram reveals EF 55 to 60%, trace to mild mitral regurgitation. RVSP 29, mild tricuspid regurgitation. No pericardial effusion. Patient is followed by nephrology for end-stage renal disease maintained on PD exchanges. Patient was also ordered 1 dose of IV iron yesterday. 03/13/2025 Patient seen and examined. Patient states that he is feeling much better today. He is off oxygen. He denies shortness of breath. No chest pain or chest press ure. Blood pressure 152/84, heart rate 59, pulse ox 95% on room air. Repeat blood work reveals WBC 7.2, hemoglobin 8, BUN 38, creatinine 3.9, potassium 3.7. Physical examination: Gen: This is 80-year-old male in no acute distress VS: reviewed HEENT: Head is atraumatic, normocephalic. Pupils equal, round. Sclerae is anicteric. NECK: Supple. No JVD. LUNGS: Clear to auscultation. No wheezes or rhonchi. No intercostal retractions. HEART: Regular rate and rhythm. Systolic murmur. ABDOMEN: Soft No tenderness. EXTREMITIES: No pedal edema. No calf tenderness. NEUROLOGICAL: Patient is awake, alert and oriented x3. Assessment: Acute hypoxic respiratory failure secondary to pneumonia, on antibiotics Elevated troponins with flat pattern not indicative of acute coronary syndrome. Elevated troponins secondary to renal failure and pneumonia. End-stage renal disease on peritoneal dialysis Anemia of chronic disease Coronary artery disease with previous CABG AAA repair Hypertension Dyslipidemia Permanent pacemaker History of nephrectomy Plan: Continue patient's home cardiac medications No medication changes made Patient is cleared for discharge from a cardiology perspective. Cardiology will sign off this case and follow on an as-needed basis. Please reconsult for any new concerns. Patient may follow-up in the office with Dr. Skaf in one to 2 weeks. Nurse practitioner note has been reviewed, I agree with documented findings and plan of care. Patient was seen and examined. Objective - Vital Signs Vital signs: Vital Signs Temp 98.1 F 03/13/25 04:00 Pulse 59 L 03/13/25 04:00 Resp 19 03/13/25 04:00 BP 152/84 03/13/25 04:00 Pulse Ox 95 03/13/25 04:00 FiO2 Intake & Output 03/12/25 03/13/25 03/13/25 18:59 06:59 18:59 Intake Total 100 Output Total 600 Balance -500 Weight 84.2 kg Intake: Oral 100 Output: Urine 600 Other: Voiding Method Toilet Toilet Urinal Urinal CAPD CAPD # Voids 1 # Bowel Movements 4 - Labs CBC & Chem 7: 03/13/25 06:18 03/13/25 06:18 Labs: Abnormal Lab Results - Last 24 Hours (Table) 03/12/25 03/13/25 03/13/25 Range/Units 07:35 06:18 06:18 RBC 2.61 L (4.40-5.60) 10*6/uL Hgb 8.0 L (13.0-17.0) g/dL Hct 26.3 L (39.6-50.0) % MCV 100.8 H (80.0-97.0) fL MCHC 30.4 L (32.0-37.0) g/dL Immature Gran # 0.06 H (0.00-0.04) 10*3/uL BUN 35 H 38 H (9-20) mg/dL Creatinine 3.31 H 3.90 H (0.66-1.25) mg/dL Glucose 132 H 109 H (74-99) mg/dL Total Protein 5.8 L 6.0 L (6.3-8.2) g/dL Microbiology - Last 24 Hours (Table) 03/11/25 23:59 Gram Stain - Preliminary Dialysate Body Fluid Culture - Preliminary 03/10/25 07:32 Blood Culture - Preliminary Blood 03/11/25 08:55 Gram Stain - Preliminary Sputum Sputum Culture - Preliminary Gram Neg Bacilli
--- NOTE | 2025-03-13 14:38 | P.PN ---
Subjective Progress Note Date: 03/13/25 Principal diagnosis: Pneumonia. Patient is a 80-year-old male with past medical history significant for hypertension, hyperlipidemia, coronary artery disease with previous CABG, end- stage renal disease on peritoneal dialysis, seizure disorder, among other things. Patient was transferred from [facility] [place] with concerns of ACS and elevated troponins. Reporting chest pain. On arrival to the ED, was found to be febrile with a temperature of 100.1 F. Chest x-ray showing airspace opacities projecting over the spine on lateral view, concerning for pneumonia. Pacemaker generator in place over the left chest. EKG: Atrially paced rhythm with a rate of [address] elevations. Labs including a CBC with a WBC count of 9, hemoglobin lower than baseline at 7.5 g/dL, platelets 173. CMP: Sodium 136, potassium 3.9, chloride 106, serum bicarb 23, BUN 44, c reatinine 3, glucose 109. Lactic 0.6. LFTs not elevated. Magnesium 2.4. NT proBNP 2360. Troponins 0.066, 0.064, 0.062. Procalcitonin level 0.28. Influenza A/B negative. COVID negative. Patient currently being evaluated on the cardiac stepdown unit. He is resting comfortably on 2 L/min nasal cannula. Patient states she has been short of breath with a congested cough for over a month now. Cough is productive with bruno thick sputum. Denies sick contacts. Previously started on Rocephin in the ED. Currently, afebrile. Denies abdominal pain, change in amount or consistency of peritoneal drainage. His air breaker operator is Dr. Wilson. Denies any chest pain, heart palpitations, syncopal events, orthopnea, lower extremity edema. Current most recent vital signs: Temperature 98.2 F, heart rate 60 bpm, blood pressure 148/77 mmHg, nontachypneic, SpO2 recorded 97% on 2 L/min nasal cannula. Progress note dated March 12, 2025. 80-year-old male seen today in room 367. He was seen in consultation yesterday. Please see the note above. He has multiple medical problems as listed above, including but not limited to hypertension, hyperlipidemia, coronary disease, previous CABG, seizure disorder, and end-stage renal disease, on peritoneal dialysis. The patient is doing better today, he is sitting at the side of the bed. He is feeling much improved. The patient is currently on room air. He is getting saline at 10 cc an hour. His procalcitonin level was normal at 0.28. He continues on azithromycin and Rocephin. The patient's antibiotics in my opinion can be discontinued. The patient would like to be discharged, but we told him we would leave that up to the primary. White count 6.77, hemoglobin 7.6, hematocrit 25.4, platelet count 198,000. Sodium 138, potassium 3.5, chlo rides 101, CO2 27, BUN 35, creatinine 3.31. Culture data is currently negative. Progress note dated March 13, 2025. 80-year-old male seen today in room 367. He is currently on 2 L nasal cannula. He is not receiving any IV fluids. His sputum is revealing some gram-negative bacilli, yet to be identified. Procalcitonin level was normal at 0.28. We added Augmentin 875 twice a day for 5 days. Current labs include a white count of 7.2, hemoglobin 8, hematocrit 26.3, and a platelet count of 228,000. Sodium 138, potassium 3.7, chlorides 101, CO2 29, BUN 38, creatinine 3.90. Sputum was positive for Pseudomonas aeruginosa. Augmentin will be discontinued, in favor of Levaquin, 500 mg a day. Objective - Vital Signs Vital signs: Vital Signs Temp 98.8 F 03/13/25 12:45 Pulse 65 03/13/25 12:45 Resp 17 03/13/25 12:45 BP 158/73 03/13/25 12:35 Pulse Ox 98 03/13/25 12:45 FiO2 21 03/13/25 09:03 Intake & Output 03/12/25 03/13/25 03/13/25 18:59 06:59 18:59 Intake Total 100 120 Output Total 600 400 Balance -500 -280 Weight 84.2 kg Intake: Oral 100 120 Output: Urine 600 400 Other: Voiding Method Toilet Toilet Toilet Urinal Urinal Urinal CAPD CAPD CAPD # Voids 1 # Bowel Movements 4 - Exam No acute distress, oriented 3. Currently on room air. No respiratory distress. HEENT examination is grossly unremarkable. Mucous membranes are moist. No oral lesions. Neck supple. Full range of motion. No adenopathy thyromegaly or neck vein distention. Cardiovascular examination reveals regular rhythm rate. S1-S2 normal. No S3 or S4. No discernible murmur noted. Lungs reveal scattered bilateral rhonchi. No wheezes. No crackles. Breath sounds are equal bilaterally. Abdomen soft bowel sounds are heard. No masses or tenderness. Extremities are intact. No cyanosis clubbing or edema. Skin is without rash or lesion. Neurologic examination is brief but nonfocal. - Labs CBC & Chem 7: 03/13/25 06:18 03/13/25 06:18 Labs: Abnormal Lab Results - Last 24 Hours (Table) 03/13/25 03/13/25 Range/Units 06:18 06:18 RBC 2.61 L (4.40-5.60) 10*6/uL Hgb 8.0 L (13.0-17.0) g/dL Hct 26.3 L (39.6-50.0) % MCV 100.8 H (80.0-97.0) fL MCHC 30.4 L (32.0-37.0) g/dL Immature Gran # 0.06 H (0.00-0.04) 10*3/uL BUN 38 H (9-20) mg/dL Creatinine 3.90 H (0.66-1.25) mg/dL Glucose 109 H (74-99) mg/dL Total Protein 6.0 L (6.3-8.2) g/dL Microbiology - Last 24 Hours (Table) 03/11/25 08:55 Gram Stain - Final Sputum Sputum Culture - Final Pseudomonas aeruginosa 03/11/25 23:59 Gram Stain - Preliminary Dialysate Body Fluid Culture - Preliminary 03/10/25 07:32 Blood Culture - Preliminary Blood Assessment and Plan Assessment: Acute hypoxemic respiratory failure, concerning for possible community-acquired pneumonia or atelectasis. Pseudomonas aeruginosa tracheobronchitis/bronchopneumonia. Elevated troponins. Anemia, hemoglobin 7.5 g/dL. Hypertension. History of hyperlipidemia. History of coronary artery disease with previous CABG. History of implanted pacemaker. End-stage renal disease, recently started on peritoneal dialysis Jan, 2025. History of renal cancer and right-sided nephrectomy. History of seizure disorder. Plan: Plan dated March 12, 2025. The patient is seen today in room 367. He is on room air. He is getting saline at 10 cc an hour. He continues on azithromycin and Rocephin for possible pneumonia. Procalcitonin level, though, is normal at 0.28. The patient would like to be discharged home. We will leave that up to his primary doctor. Currently his antibiotics can be discontinued. All labs, x-rays, and medications are reviewed. The patient's overall prognosis remains guarded. We will continue to follow the patient, make recommendations along the way. Dictation was produced using [employer] software. Please excuse any grammatical, word or spelling errors. Plan dated March 13, 2025. The patient's Augmentin will be discontinued in favor of Levaquin, 500 mg a day. Sputum was positive for gram-negative bacilli, ID as Pseudomonas aeruginosa. It is sensitive to fluoroquinolones, such as ciprofloxacin, and Levaquin. Labs, x-rays, medications are reviewed. The patient is stable for possible consideration of discharge. Additional recommendations and suggestions are forthcoming. We will continue to follow. Dictation was produced using [employer] software. Please excuse any grammatical, word or spelling errors. Time with Patient: Less than 30
[2025-03-13] MEDS: LEVOFLOXACIN 500 MG TAB PO SCH (17:23)
[2025-03-13 17:34] VITALS: BP 146/77; PULSE 62; RESP 18; TEMP 98.1
[2025-03-13] MEDS ORDERED: AMOXIC-POT CLAV 875-125MG 1 EACH TAB PO SCH (21:00)
[2025-03-15] MEDS ORDERED: LEVOFLOXACIN 500 MG TAB PO SCH (09:00)
--- NOTE | 2025-03-19 14:34 | P.DS ---
Providers Date of admission: 03/10/25 08:50 Expected date of discharge: 03/13/25 Attending physician: Jose Blair Consults: 03/10/25 09:02 Consult Physician Routine Consulting Provider: [facility] Consult Reason/Comments: acs Do you want consulting provider notified?: Yes, Notify in am Consult Physician Routine Consulting Provider: Maira Zavala Consult Reason/Comments: ESRD on peritoneal dialysis- fluid management Do you want consulting provider notified?: Yes, Notify in am 03/10/25 10:10 Consult Physician Routine Consulting Provider: Jeferson Wilkerson Consult Reason/Comments: sob concerns pneumonia Do you want consulting provider notified?: Yes Primary care physician: Nella Solis Hospital Course: discharge diagnosis 1. Increase shortness of breath and congestion 2. Acute on chronic congestive heart failure 3. Elevated troponins 4. Concerns of possible pneumonia 5. End-stage renal disease maintained on peritoneal dialysis per patient's at bedside this has been recently started 6. History of cardiomyopathy 7. History of cardiac arrhythmia patient has pacemaker placement 8. History of severe coronary artery disease with previous CABG and multiple stent placement 9. History of kidney cancer status post right nephrectomy 10. History of hyperlipidemia 11. History of seizure disorder 12. History of essential hypertension 13. Anemia likely secondary to chronic kidney disease Hospital course Kelton Medley is a 80-year-old male patient who presented with concerns of inc reased shortness of breath and coughing. Patient has extensive medical history including coronary artery disease with CABG, CHF, end-stage renal dialysis with recent initiation of peritoneal dialysis, heart cath with stents, hyperlipidemia, pacemaker placement hypertension, seizure disorder and pneumonia. Lab work completed showing white blood cell 9.07, hemoglobin 7.5, sodium 136, creatinine 3.0, bun 44. Troponin 0.066, BNP 2360 and lipase 391. At this time patient will be admitted. Chest x-ray and procalcitonin levels ordered. Patient started on IV antibiotics with concerns of pneumonia. Cardiology consulted for elevated troponins. Nephrology and pulmonary services also consulted. Will order influenza and COVID swabs along with 2D echo. At this time patient is sitting comfortably in bed patient complaining about shortness of breath and cough. Patient denies chest pain patient denies nausea vomiting or diarrhea. Patient denies any urinary burning or frequency. Current vital signs temp 98.2, heart 66, respiratory rate 15, blood pressure 117/50 with pulse ox of 100% on 4 L nasal cannula On 03/11/2025 patient was seen and examined on the telemetry floor he is alert and oriented x 3 in no apparent distress he is complaining of cough with sputum production complaining of shortness of breath with activity otherwise he denies any complaints there is no fever or chills no headache or dizziness no chest pain no nausea or vomiting no abdominal pain no diarrhea no blood in the stools no urinary symptoms. Input from pulmonary cardiology and nephrology reviewed, continue with current antibiotic and recheck in a.m.. On 03/12/2025 patient is alert and oriented x 3. Patient reports overall improvement. Patient remains on IV antibiotics. Pulmonary, nephrology and cardiology services are following. Patient currently getting peritoneal dialysis. Current vital signs temp 97.6, heart 64, respiratory rate 14, blood pressure 121/60 with a pulse ox of 94% on room air. Creatinine 3.31 bun 35. White blood cell 6.77 and hemoglobin 7.6 On 03/13/2025 patient has been cleared for discharge patient will be DC'd on Levaquin and Lasix. Patient to follow-up with PCP and consulting providers for further management continue peritoneal dialysis at this time Patient Condition at Discharge: Stable Plan - Discharge Summary New Discharge Prescriptions: New Furosemide [Lasix] 40 mg PO BID@0900,1600 30 Days #60 tab Levofloxacin [Levaquin] 500 mg PO Q48H 10 Days #5 tab Continue Sotalol [Betapace] 120 mg PO BID Nitroglycerin Sl Tabs [Nitrostat] 0.4 mg SL Q5M PRN PRN Reason: Chest Pain levETIRAcetam [Keppra] 375 mg PO Q48H Clopidogrel [Plavix] 75 mg PO DAILY 30 Days #30 tab Metoprolol Succinate (ER) [Toprol XL] 25 mg PO DAILY allopurinoL 100 mg PO DAILY Omeprazole [PriLOSEC] 20 mg PO DAILY Spironolactone 25 mg PO HS ALPRAZolam [Xanax] 0.25 mg PO BID PRN PRN Reason: Anxiety Ezetimibe [Zetia] 10 mg PO HS Isosorbide Mononitrate ER [Imdur] 30 mg PO DAILY Folic Acid 1 mg PO DAILY Cholecalciferol [Vitamin D3 (25 Mcg = 1000 Iu)] 50 mcg PO DAILY carBAMazepine [TEGretol] 200 mg PO BID Magnesium 200 mg PO DAILY Rosuvastatin Calcium [Crestor] 40 mg PO DAILY Aspirin EC [Ecotrin Low Dose] 81 mg PO DAILY HYDROcodone/APAP 10-325MG [[place] 10-325] 1 tab PO Q6H PRN PRN Reason: Pain Lactulose 20 gm PO DAILY PRN PRN Reason: Constipation Cyanocobalamin (Vitamin B-12) [Vitamin B-12] 1,000 mcg PO DAILY Diltiazem Cd [Cardizem CD] 180 mg PO DAILY Discharge Medication List Aspirin EC [Ecotrin Low Dose] 81 mg PO DAILY 06/14/21 [History] Cholecalciferol [Vitamin D3 (25 Mcg = 1000 Iu)] 50 mcg PO DAILY 06/14/21 [History] Magnesium 200 mg PO DAILY 06/14/21 [History] Nitroglycerin Sl Tabs [Nitrostat] 0.4 mg SL Q5M PRN 06/14/21 [History] Rosuvastatin Calcium [Crestor] 40 mg PO DAILY 06/14/21 [History] Sotalol [Betapace] 120 mg PO BID 06/14/21 [History] carBAMazepine [TEGretol] 200 mg PO BID 06/14/21 [History] levETIRAcetam [Keppra] 375 mg PO Q48H 06/14/21 [History] Clopidogrel [Plavix] 75 mg PO DAILY 30 Days #30 tab 06/17/21 [Rx] ALPRAZolam [Xanax] 0.25 mg PO BID PRN 04/05/24 [History] Metoprolol Succinate (ER) [Toprol XL] 25 mg PO DAILY 04/05/24 [History] Omeprazole [PriLOSEC] 20 mg PO DAILY 04/05/24 [History] Spironolactone 25 mg PO HS 04/05/24 [History] allopurinoL 100 mg PO DAILY 04/05/24 [History] Cyanocobalamin (Vitamin B-12) [Vitamin B-12] 1,000 mcg PO DAILY 03/10/25 [History] Diltiazem Cd [Cardizem CD] 180 mg PO DAILY 03/10/25 [History] Ezetimibe [Zetia] 10 mg PO HS 03/10/25 [History] Folic Acid 1 mg PO DAILY 03/10/25 [History] HYDROcodone/APAP 10-325MG [[place] 10-325] 1 tab PO Q6H PRN 03/10/25 [History] Isosorbide Mononitrate ER [Imdur] 30 mg PO DAILY 03/10/25 [History] Lactulose 20 gm PO DAILY PRN 03/10/25 [History] Furosemide [Lasix] 40 mg PO BID@0900,1600 30 Days #60 tab 03/13/25 [Rx] Levofloxacin [Levaquin] 500 mg PO Q48H 10 Days #5 tab 03/13/25 [Rx] Follow up Appointment(s)/Referral(s): Nella Solis MD [Primary Care Provider] - 1-2 days Edison Ferreira MD [STAFF PHYSICIAN] - 1 Week Patient Instructions/Handouts: Pneumonia (DC) Discharge Disposition: HOME SELF-CARE
== END 2025-03-13 17:38 | disposition home or self-care (01) | DRG 291 ==
LOC: EC 06:31 → 3SCARD 08:50
PROVIDERS: ADMIT Internal Medicine; ATTEND Internal Medicine
PROC: 3E1M39Z Irrigation of Peritoneal Cavity using Dialysate, Percutaneous Approach (ICD-10-PCS; principal; 2025-03-10)
DX: I13.2 Hypertensive heart and chronic kidney disease with heart failure and with stage 5 chronic kidney disease, or end stage renal disease (principal); I50.33 Acute on chronic diastolic (congestive) heart failure; J18.9 Pneumonia, unspecified organism; J96.01 Acute respiratory failure with hypoxia; N18.6 End stage renal disease; D63.1 Anemia in chronic kidney disease; Z95.1 Presence of aortocoronary bypass graft; Z99.2 Dependence on renal dialysis; G40.909 Epilepsy, unspecified, not intractable, without status epilepticus; I42.9 Cardiomyopathy, unspecified; E78.5 Hyperlipidemia, unspecified; I25.10 Atherosclerotic heart disease of native coronary artery without angina pectoris; I25.2 Old myocardial infarction; Z79.02 Long term (current) use of antithrombotics/antiplatelets; Z79.82 Long term (current) use of aspirin; Z79.899 Other long term (current) drug therapy; Z87.891 Personal history of nicotine dependence; Z85.528 Personal history of other malignant neoplasm of kidney; Z90.5 Acquired absence of kidney; Z95.0 Presence of cardiac pacemaker; Z82.49 Family history of ischemic heart disease and other diseases of the circulatory system; Z98.61 Coronary angioplasty status; Z90.49 Acquired absence of other specified parts of digestive tract
CPT/HCPCS: 36415; 71046; 80053; 81001; 83540; 83550; 83605; 83690; 83735; 83880; 84100; 84145; 84484; 85025; 85610; 85730; 86850; 86900; 86901; 87040; 87070; 87077; 87186; 87205; 87502; 87635; 93005; 93306; 94640; 94760; 96374; 99285

== ENCOUNTER 2025-03-27 09:05 | Day surgery (SDC) | payer MEDICARE ==
[2025-03-27 09:28] VITALS: TEMP 97.5
[2025-03-27] MEDS: SODIUM CHLORIDE 0.9% 1,000 ML IV SCH ×2 (09:32→09:33)
[2025-03-27] MEDS: IV FLUID CONTINUATION 1,000 ML IV ONE (09:50)
[2025-03-27 09:53] LABS: Basophils # (A) 0.05 10*3/uL (0.00-0.10); Basophils % (A) 0.5 %; Eosinophils # (A) 0.12 10*3/uL (0.04-0.35); Eosinophils % (A) 1.3 %; HCT 26.0 % (39.6-50.0); HGB 8.1 g/dL (13.0-17.0); Lymphocytes # (A) 2.23 10*3/uL (0.90-5.00); Lymphocytes % (A) 23.3 %; MCH 32.1 pg (27.0-32.0); MCHC 31.2 g/dL (32.0-37.0); MCV 103.2 fL (80.0-97.0); Monocytes # (A) 0.96 10*3/uL (0.20-1.00); Monocytes % (A) 10.0 %; Neutrophils # (A) 6.19 10*3/uL (1.80-7.70); Neutrophils % (A) 64.5 %; Platelet Count 215 10*3/uL (140-440); RBC 2.52 10*6/uL (4.40-5.60); RDW 16.8 % (11.5-14.5); WBC 9.59 10*3/uL (4.50-10.00)
[2025-03-27] MEDS: MIDAZOLAM 2 MG/2 ML VIAL IVP ONE (11:05)
[2025-03-27] MEDS: fentaNYL (PF) 50 MCG/ML 2 ML AMP IVP ONE (11:05)
[2025-03-27] MEDS: LIDOCAINE 1% INJ 10MG/ML (20 ML MDV) SQ ONE (11:08)
[2025-03-27] MEDS: ceFAZolin 1 GM in SODIUM CHLORIDE 0.9% IRRIG BTL 250 ML IRRIGATION PRN (11:08)
[2025-03-27] MEDS ORDERED: ACETAMINOPHEN TAB 325 MG TAB PO PRN (11:46)
--- NOTE | 2025-03-27 12:56 | P.PCN ---
Description of Procedure: CARDIOLOGY PROCEDURE NOTE Email Marketing Coordinator: Dr. Beka Henley Procedure performed: Dual chamber permanent pacemaker generator change Site: Left subclavian Indications: MARGARITO, sick sinus rhythm Complications: None Blood Loss: Minimal Description of Procedure: After the risks, benefits, and alternatives of the above-mentioned procedure was explained in detail with the patient, informed consent was obtained. The patient was taken to the cardiac catheterization suite where the left subclavian area was sterily prepped and draped in the usual fashion. Patient was given IV Versed and fentanyl for sedation. The skin over the existing pulse generator was infiltrated with lidocaine. An incision was made in the skin and was de epened until the pectoral fascia was exposed. Hemostasis was obtained. The existing pulse generator was pulled out of the pocket. The leads were disconnected and were checked for thresholds. The existing leads were then inserted into the appropriate position into the new generator. They were then secured with the setscrew provided. The leads and generator were inserted into the pocket with the leads posterior. The subcutaneous tissue was approximated utilizing #2.0 and 3.0 vicryl in an interrupted stitch fashion. The dermal layer was approximated utilizing #4.0 vicryl. The area was cleansed with sterile saline and dried. A sterile 4x4 dressing was applied and the patient was transferred to the post catheterization holding area in stable and satisfactory condition. The patient tolerated the procedure well. Generator Data Hse Coordinator: [employer] Brand: [id number] [place] XT DR MRI Model #: [id number] Serial#: [id number] Right Atrial Bipolar Lead Data: Type: Active fixation lead Hse Coordinator: [employer] Model#: 2088TC Serial Number: [id number] Right Ventricular Bipolar Lead Data: Type: Active fixation lead Hse Coordinator: [employer] Model #: 2088TC Serial #: [id number] Stimulation Thresholds: Right atrial bipolar lead pacing and sensing thresholds Voltage: 0.75 Impedance: 390 ohms P-wave sensin.5 mV Right Ventricular bipolar lead pacing and sensing thresholds Pulse Width: 0.4ms Voltage: 1.0 volts Impedance: 399 ohms R-wave sensin.0 mV Parameter Setting: Pacing mode is AAIR<=>DDDR Lower rate 60 bpm Upper rate 130 bpm Impressions: 1. Successful generator change of a dual chamber permanent pacemaker in the left pectoral site. Plan: 1. Routine post procedure care will be instituted as well as outpatient follow- up surveillance.
[2025-03-27 14:13] VITALS: PULSE 60; RESP 18
[2025-03-27 16:22] VITALS: BP 137/66
== END 2025-03-27 15:15 | disposition home or self-care (01) ==
LOC: CATHEP 09:05
PROVIDERS: ATTEND Internal Medicine
DX: I49.5 Sick sinus syndrome (principal); I25.5 Ischemic cardiomyopathy; I10 Essential (primary) hypertension; E78.5 Hyperlipidemia, unspecified; Z82.49 Family history of ischemic heart disease and other diseases of the circulatory system; Z95.0 Presence of cardiac pacemaker; Z95.1 Presence of aortocoronary bypass graft; Z86.79 Personal history of other diseases of the circulatory system; Z90.5 Acquired absence of kidney; Z98.890 Other specified postprocedural states; Z88.8 Allergy status to other drugs, medicaments and biological substances; Z79.82 Long term (current) use of aspirin; Z79.899 Other long term (current) drug therapy
CPT/HCPCS: 33228; 85025; C1785; J2250; J0690; J2003; J3010